=== PATIENT | male | born 1950 | race Caucasian/White ===

== ENCOUNTER → 2017-03-01 | Outpatient (CLI) | payer BC, MEDICARE ==
--- NOTE | 2017-03-01 08:56 | CT ---
EXAMINATION TYPE: CT chest wo con DATE OF EXAM: 03/01/2017 7:24 AM COMPARISON: Chest x-ray February 23, 2017 HISTORY: Asbestos exposure, abnormal recent x-ray CT DLP: 522.10 mGycm. Automated Exposure Control for Dose Reduction was Utilized. TECHNIQUE: CT scan of the thorax is performed without IV contrast. FINDINGS: LUNGS: Calcified pleural plaques bilaterally are confirmed. There is mild underlying emphysematous ch lindsay. There is some linear scarring in both lungs inferiorly involving the lingula, right middle lobe , and bilateral lower lobes. No pleural effusion or pneumothorax is present bilaterally. A few scatte red micronodules are present, for reference is 4 x 4 mm nodular opacity right middle lobe on axial im age 37. For reference is additional 4 x 4 mm nodular opacity inferiorly right middle lobe on axial im age 48. No concerning greater than 6 mm parenchymal nodule or mass is present bilaterally. Tracheobro nchial tree is patent. Slightly elevated left hemidiaphragm is seen. MEDIASTINUM: Lack of IV contrast is noted to limit evaluation for mediastinal and especially hilar ad enopathy. There are no definitive greater than 1 cm hilar or mediastinal lymph nodes. No cardiomega ly or pericardial effusion is seen. Calcifications at level of mitral valve are present. Coronary art elzbieta calcifications are seen which is noted marker for coronary artery disease. There is mild to moder ate atherosclerotic change of the visualized aorta. There is 1.3 cm hypodense nodule right thyroid lo be on axial image 1 mid pole level. OTHER: Fairly moderate to severe multilevel spurring in the mid to lower thoracic spine is present. M ild multilevel height loss or compression type deformities is seen. IMPRESSION: 1. Calcified pleural plaques consistent with history of prior asbestos exposure are noted. There is m ild underlying emphysematous change and scattered lower lung scarring. No concerning acute pulmonary process is seen. No suspicious mass or adenopathy is identified. 2. There is 1.3 cm right thyroid hypodense nodule, follow-up thyroid ultrasound advised to better shanna luate and characterize.
== END ==
LOC: RADCTMAIN 07:05
PROVIDERS: ATTEND Internal Medicine Critical Care Medicine
DX: Z09 Encounter for follow-up examination after completed treatment for conditions other than malignant neoplasm (principal); J92.9 Pleural plaque without asbestos; J43.9 Emphysema, unspecified
CPT/HCPCS: 71250

== ENCOUNTER 2017-04-04 14:53 | Emergency (ER) | payer BC, MEDICARE ==
[2017-04-04 15:12] VITALS: RESP 18
[2017-04-04] MEDS ORDERED: KETOROLAC 60 MG/2 ML VIAL IM STA (15:15)
--- NOTE | 2017-04-04 15:22 | ED ---
Back Pain HPI - General Chief Complaint: Back Pain/Injury Stated Complaint: Back Pain Time Seen by Provider: 04/04/17 15:13 Source: patient, RN notes reviewed Limitations: no limitations - History of Present Illness Initial Comments: 66 yo male presents to the Er with cc of right-sided back pain and right-sided rib pain. Patient states that he was lifting and moving a lot of things over the last week or so and he developed this pain to the right side as well is in the right upper back. Patient states that he try he tries to lift or move anything he has increased pain. Patient states that he is not having chest pain or shortness of breath with this. Patient denies any actual fall but just the act of lifting causes the pain to be increased. Patient states the pain is moderate. Patient states if he takes a big deep breath it feels as if he stretching and out which makes it worse. Patient denies any shortness of breath with this. Patient denies any radiation of the pain. Patient states she was concerned due to his symptoms without that he should be evaluated. Patient states the pain is been occurring for about 7 days. Patient denies any recent fever, chills, shortness of breath, chest pain, abdominal pain, nausea vomiting, numbness or tingling, dysuria or hematuria, constipation or diarrhea, headaches or visual changes, or any other current symptoms. - Related Data Home Medications Medication Instructions Recorded Confirmed Budesonide-Formot 160-4.5 Mcg 2 puff INHALATION BID 05/16/15 05/16/15 [Symbicort 160-4.5 Mcg Inhaler] Previous Rx's Medication Instructions Recorded HYDROcodone/APAP 5-325MG [[place] 5] 1 each PO Q4HR PRN #20 tab 05/16/15 methylPREDNISolone [Medrol] 4 mg PO DIRECTED #1 tab.ds.pk 05/16/15 Ibuprofen [Motrin] 600 mg PO Q6HR PRN #20 tab 04/04/17 traMADol HCl [Ultram] 50 mg PO Q4H PRN #20 tab 04/04/17 Allergies Allergy/AdvReac Type Severity Reaction Status Date / Time No Known Allergies Allergy Verified 05/16/15 15:43 Review of Systems ROS Statement: Those systems with pertinent positive or pertinent negative responses have been documented in the HPI. ROS Other: All systems not noted in ROS Statement are negative. Past Medical History Past Medical History: COPD History of Any Multi-Drug Resistant Organisms: None Reported Past Surgical History: Appendectomy, Back Surgery, Orthopedic Surgery Additional Past Surgical History / Comment(s): carpal tunel Past Psychological History: No Psychological Hx Reported Smoking Status: Current every day smoker Past Alcohol Use History: None Reported Past Drug Use History: None Reported General Exam Limitations: no limitations General appearance: alert, in no apparent distress Eye exam: Present: normal appearance, PERRL, EOMI. Absent: scleral icterus, conjunctival injection, periorbital swelling ENT exam: Present: normal exam, mucous membranes moist Neck exam: Present: normal inspection. Absent: tenderness, meningismus, lymphadenopathy Respiratory exam: Present: normal lung sounds bilaterally, chest wall tenderness (right lateral tenderness over lower ribs). Absent: respiratory distress, wheezes, rales, rhonchi, stridor Cardiovascular Exam: Present: regular rate, normal rhythm, normal heart sounds. Absent: systolic murmur, diastolic murmur, rubs, gallop, clicks GI/Abdominal exam: Present: soft, normal bowel sounds. Absent: distended, tenderness, guarding, rebound, rigid Back exam: Present: normal inspection, full ROM, tenderness (thoracic right sided paraspinal region). Absent: CVA tenderness (R), CVA tenderness (L) Neurological exam: Present: alert, oriented X3 Psychiatric exam: Present: normal affect, normal mood Skin exam: Present: warm, dry, intact, normal color. Absent: rash Course Vital Signs 04/04/17 04/04/17 04/04/17 15:08 16:27 17:21 Temperature 97.7 F 98.0 F 97.9 F Pulse Rate 101 H 78 53 L Respiratory 18 18 18 Rate Blood Pressure 151/91 166/106 155/86 O2 Sat by Pulse 98 97 97 Oximetry Medical Decision Making - Medical Decision Making 66-year-old male presents with what appears to be a thoracic strain chest and into the right-sided of the rib cage. Patient's pain is reproduced by lifting motion which he states that he believes injured it. At this time blood work was reviewed as well as platelets show any acute process. The patient pain. At this time the patient is feeling better. This discussed early shingles as well as the floor briefly muscle strain. We discussed return parameters and the plan. We will start him on Motrin for home as well as tramadol. We did discuss icing the area and rest. We discussed appropriate follow-up and return parameters. Patient stated that he understood and all his questions have been answered. This time the patient will be discharged home. - Lab Data Result diagrams: 04/04/17 16:12 04/04/17 16:12 Lab Results 04/04/17 04/04/17 04/04/17 Range/Units 16:12 16:12 16:12 WBC 5.1 (3.8-10.6) k/uL RBC 4.14 L (4.30-5.90) m/uL Hgb 14.2 (13.0-17.5) gm/dL Hct 39.4 (39.0-53.0) % MCV 95.1 (80.0-100.0) fL MCH 34.2 (25.0-35.0) pg MCHC 36.0 (31.0-37.0) g/dL RDW 12.8 (11.5-15.5) % Plt Count 423 (150-450) k/uL Neutrophils % 61 % Lymphocytes % 21 % Monocytes % 10 % Eosinophils % 4 % Basophils % 1 % Neutrophils # 3.1 (1.3-7.7) k/uL Lymphocytes # 1.1 (1.0-4.8) k/uL Monocytes # 0.5 (0-1.0) k/uL Eosinophils # 0.2 (0-0.7) k/uL Basophils # 0.0 (0-0.2) k/uL PT (9.0-12.0) sec INR (<1.1) APTT (22.0-30.0) sec D-Dimer (<0.60) mg/L FEU Sodium 138 (137-145) mmol/L Potassium 4.7 (3.5-5.1) mmol/L Chloride 105 (98-107) mmol/L Carbon Dioxide 23 (22-30) mmol/L Anion Gap 10 mmol/L BUN 17 (9-20) mg/dL Creatinine 1.01 (0.66-1.25) mg/dL Est GFR (MDRD) Af Amer >60 (>60 ml/min/1.73 sqM) Est GFR (MDRD) Non-Af >60 (>60 ml/min/1.73 sqM) Glucose 98 (74-99) mg/dL Calcium 9.4 (8.4-10.2) mg/dL Magnesium 2.2 (1.6-2.3) mg/dL Total Bilirubin 0.6 (0.2-1.3) mg/dL AST 20 (17-59) U/L ALT 26 (21-72) U/L Alkaline Phosphatase 62 (38-126) U/L Total Creatine Kinase 66 (55-170) U/L CK-MB (CK-2) 1.2 (0.0-2.4) ng/mL CK-MB (CK-2) Rel Index 1.8 Troponin I <0.012 (0.000-0.034) ng/mL Total Protein 6.8 (6.3-8.2) g/dL Albumin 3.9 (3.5-5.0) g/dL 04/04/17 Range/Units 16:12 WBC (3.8-10.6) k/uL RBC (4.30-5.90) m/uL Hgb (13.0-17.5) gm/dL Hct (39.0-53.0) % MCV (80.0-100.0) fL MCH (25.0-35.0) pg MCHC (31.0-37.0) g/dL RDW (11.5-15.5) % Plt Count (150-450) k/uL Neutrophils % % Lymphocytes % % Monocytes % % Eosinophils % % Basophils % % Neutrophils # (1.3-7.7) k/uL Lymphocytes # (1.0-4.8) k/uL Monocytes # (0-1.0) k/uL Eosinophils # (0-0.7) k/uL Basophils # (0-0.2) k/uL PT 9.8 (9.0-12.0) sec INR 1.0 (<1.1) APTT 24.8 (22.0-30.0) sec D-Dimer 1.00 H (<0.60) mg/L FEU Sodium (137-145) mmol/L Potassium (3.5-5.1) mmol/L Chloride (98-107) mmol/L Carbon Dioxide (22-30) mmol/L Anion Gap mmol/L BUN (9-20) mg/dL Creatinine (0.66-1.25) mg/dL Est GFR (MDRD) Af Amer (>60 ml/min/1.73 sqM) Est GFR (MDRD) Non-Af (>60 ml/min/1.73 sqM) Glucose (74-99) mg/dL Calcium (8.4-10.2) mg/dL Magnesium (1.6-2.3) mg/dL Total Bilirubin (0.2-1.3) mg/dL AST (17-59) U/L ALT (21-72) U/L Alkaline Phosphatase (38-126) U/L Total Creatine Kinase (55-170) U/L CK-MB (CK-2) (0.0-2.4) ng/mL CK-MB (CK-2) Rel Index Troponin I (0.000-0.034) ng/mL Total Protein (6.3-8.2) g/dL Albumin (3.5-5.0) g/dL - EKG Data -: EKG Interpreted by 04/04/17 17:25 Sinus bradycardia with sinus arrhythmia 59 bpm, normal axis, no atopy, no S-T depressions or elevations, - Radiology Data Radiology results: report reviewed, image reviewed Disposition Clinical Impression: Strain of thoracic region Disposition: HOME SELF-CARE Condition: Stable Instructions: Thoracic Back Strain (ED) Additional Instructions: Please use medication as discussed. Please follow up with family doctor if symptoms have not improved over the next two days. Please return to the emergency room if your symptoms increase or worsen or for any other concerns. Prescriptions: Ibuprofen [Motrin] 600 mg PO Q6HR PRN #20 tab PRN Reason: Pain traMADol HCl [Ultram] 50 mg PO Q4H PRN #20 tab PRN Reason: Pain Referrals: Michelle Hussein DO [Primary Care Provider] - 1-2 days Time of Disposition: 17:25
--- NOTE | 2017-04-04 15:58 | XR ---
EXAMINATION TYPE: XR thoracic spine 2V DATE OF EXAM: 04/04/2017 COMPARISON: NONE HISTORY: Pain TECHNIQUE: Three-view thoracic spine FINDINGS: There are 12 thoracic type vertebral bodies. Pedicles are intact. Diffuse narrowing of disc height is present. Subtle scoliosis is present. IMPRESSION: 1. Mild degenerative disc changes thoracic spine.
--- NOTE | 2017-04-04 15:58 | XR ---
EXAMINATION TYPE: PA chest with right rib series DATE OF EXAM: 04/04/2017 COMPARISON: 02/23/2017 HISTORY: 66 year-old male right lower posterior rib pain for 7 days FINDINGS: The heart is normal size. Aorta and pulmonary vasculature within normal limits. Bilateral calcified p leural plaques redemonstrated. No consolidation or pleural effusion allowing for the densities due to the pleural plaques. No displaced right rib fracture seen. IMPRESSION: 1. Asbestos related pleural disease. 2. No acute pulmonary process. 3. No displaced right rib fracture seen.
[2017-04-04] MEDS ORDERED: HYDROmorphone 1 MG/ML 1 ML SYRINGE IVP STA (16:07)
[2017-04-04 16:25] LABS: Basophils % (A) 1 %; CH 32.5; CHCM 34.3; Eosinophils # (A) 0.2 k/uL (0-0.7); Eosinophils % (A) 4 %; HCT 39.4 % (39.0-53.0); HDW 2.67; HGB 14.2 gm/dL (13.0-17.5); Luc # (Auto) 0.18; Luc % (Auto) 4; Lymphocytes # (A) 1.1 k/uL (1.0-4.8); Lymphocytes % (A) 21 %; MCH 34.2 pg (25.0-35.0); MCV 95.1 fL (80.0-100.0); Mean Platelet Volume 6.7; Monocytes # (A) 0.5 k/uL (0-1.0); Monocytes % (A) 10 %; Neutrophils # (A) 3.1 k/uL (1.3-7.7); Neutrophils % (A) 61 %; RBC 4.14 m/uL (4.30-5.90); RDW 12.8 % (11.5-15.5); WBC 5.1 k/uL (3.8-10.6); WBC (Perox) 5.13
[2017-04-04 16:34] LABS: ALT 26 U/L (21-72); AST 20 U/L (17-59); Alkaline Phosphatase 62 U/L (38-126); Anion Gap 10 mmol/L; Blood Urea Nitrogen 17 mg/dL (9-20); Calcium 9.4 mg/dL (8.4-10.2); Carbon Dioxide 23 mmol/L (22-30); Chloride 105 mmol/L (98-107); Glucose 98 mg/dL (74-99); Magnesium 2.2 mg/dL (1.6-2.3); Non-African American GFR(MDRD) >60 (>60 ml/min/1.73 sqM); Potassium 4.7 mmol/L (3.5-5.1); Sodium 138 mmol/L (137-145); Total Bilirubin 0.6 mg/dL (0.2-1.3); Total Protein 6.8 g/dL (6.3-8.2)
[2017-04-04 16:43] LABS: Partial Thromboplastin Time 24.8 sec (22.0-30.0); Prothrombin Time 9.8 sec (9.0-12.0)
[2017-04-04] MEDS ORDERED: RX INFO: IV CONTRAST WAS GIVEN 1 EACH MISC MISCELLANE PRN (16:46)
[2017-04-04 16:52] LABS: Creatine Kinase 66 U/L (55-170)
[2017-04-04 17:05] LABS: Creatine Kinase MB 1.2 ng/mL (0.0-2.4); Troponin I <0.012 ng/mL (0.000-0.034)
--- NOTE | 2017-04-04 17:14 | CT ---
EXAMINATION TYPE: CT angio chest DATE OF EXAM: 04/04/2017 5:11 PM COMPARISON: NONE HISTORY: Right side chest pain. CT DLP: 588 mGycm Automated exposure control for dose reduction was used. CONTRAST: CTA scan of the thorax is performed with IV Contrast, patient injected with 80 mL of Omnipaque 350, p ulmonary embolism protocol. There are 3-D post processed images.. FINDINGS: There is mild aneurysm of the ascending aorta that measures 4.3 cm. There is no evidence of dissectio n. There is normal contrast opacification of the pulmonary arteries. I see no filling defect. There i s dense bilateral pleural calcification at the lung bases. There is mild associated pleural thickenin g bilaterally. There is no pericardial effusion. There is atherosclerotic vascular calcification. The re is no evidence of a pulmonary mass. There are spondylotic changes in the thoracic spine. IMPRESSION: NO EVIDENCE OF PULMONARY EMBOLISM. MILD ANEURYSM OF ASCENDING AORTA. NO EVIDENCE OF DISSECTION. ATHER OSCLEROTIC VASCULAR DISEASE. MODERATE BILATERAL CALCIFIED PLEURAL PLAQUE. 1 CM CYST NOTED IN THE RIGHT THYROID LOBE. PLEURAL PLAQU E IS STABLE COMPARED TO CHEST CT SCAN OF 03/01/2017.
[2017-04-04 17:21] VITALS: BP 155/86; PULSE 53; TEMP 97.9
== END 2017-04-04 17:55 | disposition home or self-care (01) ==
LOC: EC 14:53
DX: S29.012A Strain of muscle and tendon of back wall of thorax, initial encounter (principal); I71.01 Dissection of thoracic aorta; M51.34 Other intervertebral disc degeneration, thoracic region; J44.9 Chronic obstructive pulmonary disease, unspecified; F17.200 Nicotine dependence, unspecified, uncomplicated; Z79.51 Long term (current) use of inhaled steroids; X50.0XXA Overexertion from strenuous movement or load, initial encounter
CPT/HCPCS: 99284; 96374; 96372; 36415; 93005; 85379; 80053; 82550; 82553; 83735; 84484; 85025; 85610; 85730; 71101; 72070; 71275; Q9967; J1885; J1170

== ENCOUNTER → 2017-04-21 | Outpatient (CLI) | payer BC, MEDICARE ==
--- NOTE | 2017-04-21 08:19 | US ---
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 GLAND SIZE: Right Lobe: 6.2 x2.2 x 2.3 cm Overall Parenchyma: homogenous Left Lobe: 5.4 x 1.8 x 1.8 cm Overall Parenchyma: homogeneous Isthmus Thickness: 0.5 cm NODULES RIGHT: # of nodules measured on right: 2 1. 1.6 X 1.1 x 1.6 cm isoechoic mixed nodule at the mid pole with well-defined margins; . This nod ule is wider than tall and shows intranodular vascularity. Prior size: no prior 2. 0.5 X 0.5 x 0.3 cm isoechoic solid nodule at the upper pole with well-defined margins; . This no dule is wider than tall and shows intranodular vascularity. Prior size: no prior LEFT: # of nodules measured on left: 1 1. 0.4 X 0.5 x 0.4 cm hypoechoic mixed nodule at the mid pole with well-defined margins; . This no dule is wider than tall and shows no intranodular vascularity. Prior size: no prior ISTHMUS: # of nodules measured in the isthmus: 0 1Bilateral neck scanned, no evidence of lymphadenopathy. IMPRESSION: Bilateral nonspecific thyroid nodularity.
== END | disposition home or self-care (01) ==
LOC: RADUSWWP 07:17
PROVIDERS: ATTEND Family Medicine
DX: E04.2 Nontoxic multinodular goiter (principal)
CPT/HCPCS: 76536

== ENCOUNTER 2018-03-22 13:44 | Inpatient (IN) | payer BC, MEDICARE ==
[2018-03-22] MEDS ORDERED: NITROGLYCERIN SL TABS 0.4 MG TAB SUBLINGUAL STA ×3 (14:06)
[2018-03-22] MEDS ORDERED: ASPIRIN 81 MG PO STA (14:06)
--- NOTE | 2018-03-22 14:09 | ED ---
General Adult HPI - General Chief complaint: Chest Pain Stated complaint: Chest Pain Time Seen by Provider: 03/22/18 14:01 Source: patient, RN notes reviewed Mode of arrival: wheelchair Limitations: no limitations - History of Present Illness Initial comments: Patient is a pleasant 67-year-old male presenting to the emergency Department with chest discomfort. Onset was 2 days ago after starting prednisone. At his own was prescribed for a rash. Symptoms are occurring several times per day and usually last a half an hour or more. Discomfort feels like burning without radiation. No associated dyspnea or nausea. Patient was sweaty yesterday. Discomfort was worse today prior to arrival and is now moderate. No history of similar symptoms previously. - Related Data Home Medications Medication Instructions Recorded Confirmed Budesonide-Formot 160-4.5 Mcg 2 puff INHALATION RT-BID 05/16/15 03/22/18 [Symbicort 160-4.5 Mcg Inhaler] Cetirizine HCl [Zyrtec] 10 mg PO DAILY 03/22/18 03/22/18 Halobetasol Propionate 1 applic TOPICAL BID 03/22/18 03/22/18 Tiotropium [place] [Spiriva] 1 cap INHALATION RT-DAILY 03/22/18 03/22/18 hydrOXYzine HCL [Atarax] 10 mg PO DAILY 03/22/18 03/22/18 predniSONE See Taper PO DAILY 03/22/18 03/22/18 Allergies Allergy/AdvReac Type Severity Reaction Status Date / Time No Known Allergies Allergy Verified 03/22/18 14:15 Review of Systems ROS Statement: Those systems with pertinent positive or pertinent negative responses have been documented in the HPI. ROS Other: All systems not noted in ROS Statement are negative. Constitutional: Denies: fever Eyes: Denies: eye pain ENT: Denies: ear pain Respiratory: Denies: cough, dyspnea Cardiovascular: Reports: chest pain Endocrine: Denies: heat or cold intolerance Gastrointestinal: Denies: nausea Genitourinary: Denies: dysuria Musculoskeletal: Denies: back pain Neurological: Denies: weakness Past Medical History Past Medical History: COPD, Hypertension History of Any Multi-Drug Resistant Organisms: None Reported Past Surgical History: Appendectomy, Back Surgery, Orthopedic Surgery Additional Past Surgical History / Comment(s): carpal tunel Past Psychological History: No Psychological Hx Reported Smoking Status: Current every day smoker Past Alcohol Use History: None Reported Past Drug Use History: None Reported General Exam Limitations: no limitations General appearance: alert, in no apparent distress Head exam: Present: atraumatic Eye exam: Present: normal appearance, PERRL ENT exam: Present: normal oropharynx Neck exam: Present: normal inspection Respiratory exam: Present: normal lung sounds bilaterally. Absent: chest wall tenderness Cardiovascular Exam: Present: regular rate, normal rhythm Expanded Peripheral pulses: 2+: Radial (R), Radial (L), Posterior Tibialis (R), Posterior Tibialis (L) GI/Abdominal exam: Present: soft. Absent: tenderness Extremities exam: Present: normal inspection. Absent: pedal edema, calf tenderness Neurological exam: Present: alert Psychiatric exam: Present: normal affect, normal mood Skin exam: Present: normal color Course Vital Signs 03/22/18 03/22/18 03/22/18 13:49 14:19 14:24 Temperature 98.5 F Pulse Rate 70 61 59 L Respiratory 16 20 18 Rate Blood Pressure 175/81 168/89 128/74 O2 Sat by Pulse 99 100 98 Oximetry 03/22/18 14:58 Temperature Pulse Rate 51 L Respiratory 20 Rate Blood Pressure 147/77 O2 Sat by Pulse 99 Oximetry EKG Findings - EKG Comments: EKG Findings:: Sinus rhythm at 61. QRS 96. QT 418. QTC 420. Normal axis. Normal QRS. No acute ST change. Medical Decision Making - Medical Decision Making Patient reevaluated and resting comfortably in bed. Patient near symptom-free following one nitroglycerin. Patient and family updated on results and plan. Case was discussed with Dr. Tse, who will admit for Dr. champagne, who admits for Dr. Hussein. - Lab Data Result diagrams: 03/22/18 14:15 03/22/18 14:15 Lab Results 03/22/18 03/22/18 03/22/18 Range/Units 14:15 14:15 14:15 WBC 10.1 (3.8-10.6) k/uL RBC 4.45 (4.30-5.90) m/uL Hgb 14.2 (13.0-17.5) gm/dL Hct 43.8 (39.0-53.0) % MCV 98.4 (80.0-100.0) fL MCH 32.0 (25.0-35.0) pg MCHC 32.5 (31.0-37.0) g/dL RDW 13.9 (11.5-15.5) % Plt Count 291 (150-450) k/uL Neutrophils % 90 % Lymphocytes % 3 % Monocytes % 6 % Eosinophils % 0 % Basophils % 0 % Neutrophils # 9.1 H (1.3-7.7) k/uL Lymphocytes # 0.3 L (1.0-4.8) k/uL Monocytes # 0.6 (0-1.0) k/uL Eosinophils # 0.0 (0-0.7) k/uL Basophils # 0.0 (0-0.2) k/uL PT (9.0-12.0) sec INR (<1.2) APTT (22.0-30.0) sec Sodium 140 (137-145) mmol/L Potassium 4.7 (3.5-5.1) mmol/L Chloride 107 (98-107) mmol/L Carbon Dioxide 22 (22-30) mmol/L Anion Gap 11 mmol/L BUN 23 H (9-20) mg/dL Creatinine 1.10 (0.66-1.25) mg/dL Est GFR (CKD-EPI)AfAm 81 (>60 ml/min/1.73 sqM) Est GFR (CKD-EPI)NonAf 70 (>60 ml/min/1.73 sqM) Glucose 130 H (74-99) mg/dL Calcium 8.9 (8.4-10.2) mg/dL Magnesium 2.3 (1.6-2.3) mg/dL Total Bilirubin 0.5 (0.2-1.3) mg/dL AST 40 (17-59) U/L ALT 50 (21-72) U/L Alkaline Phosphatase 60 (38-126) U/L Total Creatine Kinase 295 H (55-170) U/L CK-MB (CK-2) 7.3 H* (0.0-2.4) ng/mL CK-MB (CK-2) Rel Index 2.5 Troponin I 0.557 H* (0.000-0.034) ng/mL Total Protein 6.2 L (6.3-8.2) g/dL Albumin 3.8 (3.5-5.0) g/dL 03/22/18 Range/Units 14:15 WBC (3.8-10.6) k/uL RBC (4.30-5.90) m/uL Hgb (13.0-17.5) gm/dL Hct (39.0-53.0) % MCV (80.0-100.0) fL MCH (25.0-35.0) pg MCHC (31.0-37.0) g/dL RDW (11.5-15.5) % Plt Count (150-450) k/uL Neutrophils % % Lymphocytes % % Monocytes % % Eosinophils % % Basophils % % Neutrophils # (1.3-7.7) k/uL Lymphocytes # (1.0-4.8) k/uL Monocytes # (0-1.0) k/uL Eosinophils # (0-0.7) k/uL Basophils # (0-0.2) k/uL PT 9.5 (9.0-12.0) sec INR 1.0 (<1.2) APTT 21.6 L (22.0-30.0) sec Sodium (137-145) mmol/L Potassium (3.5-5.1) mmol/L Chloride (98-107) mmol/L Carbon Dioxide (22-30) mmol/L Anion Gap mmol/L BUN (9-20) mg/dL Creatinine (0.66-1.25) mg/dL Est GFR (CKD-EPI)AfAm (>60 ml/min/1.73 sqM) Est GFR (CKD-EPI)NonAf (>60 ml/min/1.73 sqM) Glucose (74-99) mg/dL Calcium (8.4-10.2) mg/dL Magnesium (1.6-2.3) mg/dL Total Bilirubin (0.2-1.3) mg/dL AST (17-59) U/L ALT (21-72) U/L Alkaline Phosphatase (38-126) U/L Total Creatine Kinase (55-170) U/L CK-MB (CK-2) (0.0-2.4) ng/mL CK-MB (CK-2) Rel Index Troponin I (0.000-0.034) ng/mL Total Protein (6.3-8.2) g/dL Albumin (3.5-5.0) g/dL - Radiology Data Radiology results: image reviewed (Chest x-ray shows some calcified pleural plaque suggesting prior asbestos exposure. Hyperinflation. No acute process.) Critical Care Time Critical Care Time: Yes Total Critical Care Time: 32 Disposition Clinical Impression: NSTEMI (non-ST elevated myocardial infarction) Disposition: ADMITTED IP TO THIS HOSP Is patient prescribed a controlled substance at d/c from ED?: No Referrals: Michelle Hussein DO [Primary Care Provider] - 1-2 days Decision Time: 15:22
[2018-03-22 14:39] LABS: Prothrombin Time 9.5 sec (9.0-12.0)
[2018-03-22 14:48] LABS: Basophils % (A) 0 %; Eosinophils % (A) 0 %; HCT 43.8 % (39.0-53.0); HGB 14.2 gm/dL (13.0-17.5); Lymphocytes # (A) 0.3 k/uL (1.0-4.8); Lymphocytes % (A) 3 %; MCHC 32.5 g/dL (31.0-37.0); MCV 98.4 fL (80.0-100.0); Mean Platelet Volume 6.4; Monocytes # (A) 0.6 k/uL (0-1.0); Monocytes % (A) 6 %; Neutrophils # (A) 9.1 k/uL (1.3-7.7); Neutrophils % (A) 90 %; Platelet Count 291 k/uL (150-450); RBC 4.45 m/uL (4.30-5.90); RDW 13.9 % (11.5-15.5); WBC 10.1 k/uL (3.8-10.6)
[2018-03-22 14:51] LABS: Partial Thromboplastin Time 21.6 sec (22.0-30.0)
[2018-03-22 14:54] LABS: Albumin 3.8 g/dL (3.5-5.0); Calcium 8.9 mg/dL (8.4-10.2); Magnesium 2.3 mg/dL (1.6-2.3); Potassium 4.7 mmol/L (3.5-5.1); Total Bilirubin 0.5 mg/dL (0.2-1.3); Total Protein 6.2 g/dL (6.3-8.2)
[2018-03-22] MEDS ORDERED: NITROGLYCERIN OINT 1 INCH/GM PACKET TOPICAL STA (14:55)
--- NOTE | 2018-03-22 14:59 | XR ---
EXAMINATION TYPE: XR chest 2V DATE OF EXAM: 03/22/2018 COMPARISON: 04/04/2017 HISTORY: 67-year-old male with chest pain TECHNIQUE: Frontal and lateral views FINDINGS: Heart normal size. Aorta and pulmonary vasculature within normal limits. Diffuse interstitial promine nce. Stable blunting of the right costophrenic angle likely secondary to pleural parenchymal scarring . Hyperinflation with flattening of the hemidiaphragms. Focal plaque-like density projecting at the r ight upper lobe is unchanged IMPRESSION: Calcified pleural plaques suggesting prior asbestos exposure. There is COPD without acute process see n.
[2018-03-22 15:16] LABS: Creatine Kinase MB 7.3 ng/mL (0.0-2.4); Troponin I 0.557 ng/mL (0.000-0.034)
[2018-03-22] MEDS ORDERED: HEPARIN SODIUM,PORCINE 5,000 UNIT/ML 1 ML VIAL IV ONE (15:22)
[2018-03-22] MEDS ORDERED: HEPARIN SODIUM,PORCINE 5,000 UNIT/ML 1 ML VIAL IV PRN (15:22)
[2018-03-22] MEDS ORDERED: NITROGLYCERIN SL TABS 0.4 MG TAB SUBLINGUAL PRN (15:22)
[2018-03-22] MEDS ORDERED: HEPARIN SOD,PORK IN 0.45% NACL 25,000 UNIT in 0.45% NACL 1 500ML.BAG IV SCH (15:30)
[2018-03-22] MEDS: ATORVASTATIN 80 MG TAB PO SCH (16:19)
[2018-03-22] MEDS ORDERED: MAG HYDROX/AL HYDROX/SIMETH 30 ML CUP PO PRN (16:56)
[2018-03-22] MEDS: METOPROLOL TARTRATE 25 MG TAB PO SCH (21:08)
[2018-03-22] MEDS: NITROGLYCERIN OINT 1 INCH/GM PACKET TOPICAL SCH ×2 (21:09→23:05)
[2018-03-22 21:13] LABS: Creatine Kinase MB 7.8 ng/mL (0.0-2.4); Troponin I 1.45 ng/mL (0.000-0.034)
[2018-03-22] MEDS ORDERED: diphenhydrAMINE 50 MG CAP PO PRN (21:14)
[2018-03-22] MEDS ORDERED: IPRATROPIUM-ALBUTEROL 3 ML NEB INHALATION PRN (21:15)
--- NOTE | 2018-03-22 22:29 | P.HPIM ---
History of Present Illness H&P Date: 03/22/18 Chief Complaint: Chest pain Patient is a 67 old male with a known history of COPD and hypertension came to ER with complaints of chest pain. Patient says that he has been having chest pain for the past 2 days mainly retrosternal pressure-like severe burning sensation lasting about 2 hours on and off. No radiation. Patient says that pain is 10 times worse than his GERD symptoms. Pain is associated with sweating which he had last night. Patient was given nitroglycerin when he came to the hospital which did help him symptomatically. Patient says that all his symptoms started 2 days ago when he was started on prednisone for skin rash which developed RT was exposed to coolent Solution. Discomfort was worse today prior to arrival and is now moderate. No history of similar symptoms previously. Chest x-ray showed calcified pleural plaques suggestive of prior asbestos exposure. There is COPD without acute processes seen. EKG showed no ST-T elevation. Troponin is 0.055 Review of Systems Constitutional: Patient denies any fever or chills . No generalized weakness or weight loss. Abdomen: Patient denied nausea vomiting and diarrhea and abdominal pain. Cardiovascular: Patient does have chest pain on and off shortness of breath and sweating. Burning sensation. Respiratory: patient denied any cough is from production. No shortness of breath Neurologic: Patient denied any numbness or tingling headache. Musculoskeletal: Patient denies any complaints of joint swelling or deformity. Skin: Negative Psychiatric: Negative Endocrine: No heat or cold intolerance. No recent weight gain. Genitourinary: No dysuria or hematuria. All other 14 point ROS negative except the above Past Medical History Past Medical History: COPD, Hypertension History of Any Multi-Drug Resistant Organisms: None Reported Past Surgical History: Appendectomy, Back Surgery, Orthopedic Surgery Additional Past Surgical History / Comment(s): carpal tunel Past Psychological History: No Psychological Hx Reported Smoking Status: Current every day smoker Past Alcohol Use History: None Reported Past Drug Use History: None Reported - Past Family History Father Family Medical History: Myocardial Infarction ([place]) Mother Family Medical History: CVA/TIA, Myocardial Infarction ([place]), Pneumonia Medications and Allergies Home Medications Medication Instructions Recorded Confirmed Type Budesonide-Formot 160-4.5 Mcg 2 puff INHALATION RT-BID 05/16/15 03/22/18 History [Symbicort 160-4.5 Mcg Inhaler] Cetirizine HCl [Zyrtec] 10 mg PO DAILY 03/22/18 03/22/18 History Halobetasol Propionate 1 applic TOPICAL BID 03/22/18 03/22/18 History Tiotropium [place] [Spiriva] 1 cap INHALATION RT-DAILY 03/22/18 03/22/18 History hydrOXYzine HCL [Atarax] 10 mg PO DAILY 03/22/18 03/22/18 History predniSONE See Taper PO DAILY 03/22/18 03/22/18 History Allergies Allergy/AdvReac Type Severity Reaction Status Date / Time No Known Allergies Allergy Verified 03/22/18 14:15 Physical Exam Vitals: Vital Signs Temp Pulse Resp BP Pulse Ox 03/22/18 16:19 97.3 F L 53 L 18 123/67 98 03/22/18 14:58 51 L 20 147/77 99 03/22/18 14:24 59 L 18 128/74 98 03/22/18 14:19 61 20 168/89 100 03/22/18 13:49 98.5 F 70 16 175/81 99 Intake and Output 03/22/18 03/22/18 03/22/18 06:59 14:59 22:59 Other: Weight 81.647 kg PHYSICAL EXAMINATION: Patient is lying in the bed comfortably, no acute distress, awake alert and oriented.. HEENT: Normocephalic. Neck is supple. Pupils reactive. Nostrils clear. Oral cavity is moist. Ears reveal no drainage. Neck reveals no JVD, carotid bruits, or thyromegaly. CHEST EXAMINATION: Trachea is central. Symmetrical expansion. Lung blood clear to auscultation and percussion. CARDIAC: Normal S1, S2 with no gallops. No murmurs ABDOMEN: Soft. Bowel sounds normal. No organomegaly. No abdominal bruits. Extremities: reveal no edema. No clubbing or cyanosis Neurologically awake, alert, oriented x3 with well-coordinated movements. No focal deficits noted Skin: No rash or skin lesions. Psychiatric: Coperative. Nonsuicidal Musculoskeletal: No joint swelling or deformity. Normal range of motion. Results CBC & Chem 7: 03/22/18 14:15 03/22/18 14:15 Labs: Abnormal Lab Results - Last 24 Hours (Table) 03/22/18 03/22/1803/22/18 Range/Units 14:15 14:15 14:15 Neutrophils # 9.1 H (1.3-7.7) k/uL Lymphocytes # 0.3 L (1.0-4.8) k/uL APTT (22.0-30.0) sec BUN 23 H (9-20) mg/dL Glucose 130 H (74-99) mg/dL Total Creatine Kinase 295 H (55-170) U/L CK-MB (CK-2) 7.3 H* (0.0-2.4) ng/mL Troponin I 0.557 H* (0.000-0.034) ng/mL Total Protein 6.2 L (6.3-8.2) g/dL 03/22/18 Range/Units 14:15 Neutrophils # (1.3-7.7) k/uL Lymphocytes # (1.0-4.8) k/uL APTT 21.6 L (22.0-30.0) sec BUN (9-20) mg/dL Glucose (74-99) mg/dL Total Creatine Kinase (55-170) U/L CK-MB (CK-2) (0.0-2.4) ng/mL Troponin I (0.000-0.034) ng/mL Total Protein (6.3-8.2) g/dL Thrombosis Risk Factor Assmnt - DVT/VTE Prophylaxis DVT/VTE Prophylaxis: Pharmacologic Prophylaxis ordered Assessment and Plan Assessment: Chest pain with Acute non-ST elevated [place] Hypertension COPD Nicotine addiction ALLERGIC skin reaction currently on prednisone. Plan: Patient will be continued on heparin drip. Follow-up serial troponins and pain management. Continue with telemetry monitoring and cardiology was consulted. Patient is getting 2-D echo now. Counseled for smoking cessation. Will follow closely and further recommendations based on the clinical course. Time with Patient: Greater than 30
[2018-03-22] MEDS: methylPREDNISolone SOD SUCCI 40 MG/ML 1 ML VIAL IV SCH (23:04)
[2018-03-22] MEDS: CLOBETASOL PROP 0.05% CR 15GM TOPICAL SCH (23:04)
[2018-03-23 03:29] LABS: Basophils % (A) 0 %; Eosinophils # (A) 0.1 k/uL (0-0.7); Eosinophils % (A) 1 %; HCT 37.2 % (39.0-53.0); HGB 12.2 gm/dL (13.0-17.5); Lymphocytes # (A) 0.5 k/uL (1.0-4.8); Lymphocytes % (A) 5 %; MCH 31.9 pg (25.0-35.0); MCHC 32.8 g/dL (31.0-37.0); MCV 97.5 fL (80.0-100.0); Mean Platelet Volume 6.4; Monocytes # (A) 0.4 k/uL (0-1.0); Monocytes % (A) 5 %; Neutrophils # (A) 7.7 k/uL (1.3-7.7); Neutrophils % (A) 88 %; Platelet Count 260 k/uL (150-450); RBC 3.81 m/uL (4.30-5.90); RDW 13.5 % (11.5-15.5); WBC 8.7 k/uL (3.8-10.6)
[2018-03-23 03:41] LABS: Creatine Kinase MB 8.4 ng/mL (0.0-2.4)
[2018-03-23 03:42] LABS: Troponin I 1.82 ng/mL (0.000-0.034)
[2018-03-23 03:48] LABS: Calcium 8.6 mg/dL (8.4-10.2); Potassium 4.7 mmol/L (3.5-5.1)
[2018-03-23] MEDS: NITROGLYCERIN OINT 1 INCH/GM PACKET TOPICAL SCH (06:13)
[2018-03-23] MEDS: INSULIN ASPART 100 UNIT/ML 1 ML 10 ML VIAL SQ SCH ×4 (06:14→21:09)
[2018-03-23 06:15] LABS: Glucose,Whole Blood 118 mg/dL (75-99)
[2018-03-23] MEDS ORDERED: IPRATROPIUM 0.5 MG/2.5 ML NEBU INHALATION SCH (08:00)
[2018-03-23] MEDS: methylPREDNISolone SOD SUCCI 40 MG/ML 1 ML VIAL IV SCH ×2 (08:24→16:02)
[2018-03-23] MEDS: ATORVASTATIN 80 MG TAB PO SCH ×2 (08:24→12:22)
[2018-03-23] MEDS: hydrOXYzine HCL 10 MG TAB PO SCH (08:26)
[2018-03-23] MEDS: METOPROLOL TARTRATE 25 MG TAB PO SCH (08:26)
--- NOTE | 2018-03-23 08:26 | P.PCN ---
Preoperative Diagnosis: Chest discomfort midsternal that felt like heartburn, 6 episodes since Tuesday mostly with exertion but sometimes with rest. Abnormal cardiac enzymes. Current smoker no diabetes denies hypertension CPKs to 95, 237 and 213. Troponin 0.55, 1.45, 1.8 LDL in the acute phase 67 Twelve-lead ECG shows sinus rhythm with subtle ST T changes in the inferior leads and the T waves in the lateral precordial and high lateral leads Impression Non-Q wave myocardial infarction Current smoker Plan Continue IV heparin, continue Nitropaste, beta blockers, statins, aspirin and proceed with coronary angiography Discussed with patient Nothing by mouth except medications
[2018-03-23] MEDS: LORATADINE 10 MG TAB PO SCH (08:28)
--- NOTE | 2018-03-23 08:31 | P.CRDCN ---
History of Present Illness Consult date: 03/23/18 Consult reason: non-Q-wave [place] Chief complaint: Chest pain History of present illness: This pleasant 67-year-old gentleman with known history of hypertension , nicotine dependence, COPD, who presents to the hospital with symptoms of chest discomfort. According to the patient, he was started on prednisone on Tuesday for her rash, subsequent to that he developed a midsternal chest pain which she describes as a burning sensation. Patient has had several recurrent episodes since then, because of this he came to the hospital for further evaluation. EKG on admission here shows a normal sinus rhythm with nonspecific ST-T wave changes in the inferior leads. White blood cell count 8.7, hemoglobin 12.2, platelet count 260. Sodium 139, potassium 4.7, BUN 22, creatinine 1.1. Troponins 0.55, 1.4, 1.8. Cholesterol 118, LDL, 67, triglycerides 40, HDL 43. Chest x-ray reveals calcified pleural plaques suggesting asbestos exposure. COPD without acute process. At the time of my examination this morning and is currently chest pain-free. Past Medical History Past Medical History: COPD, Hypertension Additional Past Medical History / Comment(s): chemical burn to arms d/t work related injury, asbestos exposure History of Any Multi-Drug Resistant Organisms: None Reported Past Surgical History: Appendectomy, Back Surgery, Orthopedic Surgery Additional Past Surgical History / Comment(s): carpal tunel Past Anesthesia/Blood Transfusion Reactions: No Reported Reaction Past Psychological History: No Psychological Hx Reported Smoking Status: Current every day smoker Past Alcohol Use History: None Reported Past Drug Use History: None Reported - Past Family History Father Family Medical History: Myocardial Infarction ([place]) Mother Family Medical History: CVA/TIA, Myocardial Infarction ([place]), Pneumonia Medications and Allergies Home Medications Medication Instructions Recorded Confirmed Type Budesonide-Formot 160-4.5 Mcg 2 puff INHALATION RT-BID 05/16/15 03/22/18 History [Symbicort 160-4.5 Mcg Inhaler] Cetirizine HCl [Zyrtec] 10 mg PO DAILY 03/22/18 03/22/18 History Halobetasol Propionate 1 applic TOPICAL BID 03/22/18 03/22/18 History Tiotropium [place] [Spiriva] 1 cap INHALATION RT-DAILY 03/22/18 03/22/18 History hydrOXYzine HCL [Atarax] 10 mg PO DAILY 03/22/18 03/22/18 History predniSONE See Taper PO DAILY 03/22/18 03/22/18 History Allergies Allergy/AdvReac Type Severity Reaction Status Date / Time No Known Allergies Allergy Verified 03/22/18 14:15 Physical Exam Vitals: Vital Signs Temp Pulse Pulse Resp BP BP Pulse Ox 03/23/18 04:00 97 F L 64 18 135/73 96 03/23/18 00:00 60 18 123/80 93 L 03/22/18 20:00 97 F L 64 18 144/74 97 03/22/18 19:00 97.1 F L 66 18 142/79 97 03/22/18 18:26 60 18 126/69 100 03/22/18 17:24 69 18 158/78 97 03/22/18 16:19 97.3 F L 53 L 18 123/67 98 03/22/18 14:58 51 L 20 147/77 99 03/22/18 14:24 59 L 18 128/74 98 03/22/18 14:19 61 20 168/89 100 03/22/18 13:49 98.5 F 70 16 175/81 99 Intake and Output 03/22/18 03/23/18 03/23/18 22:59 06:59 14:59 Intake Total 135.171 Balance 135.171 Intake: Intake, IV Titration 135.171 Amount Heparin Sod,Pork in 0.45% 135.171 NaCl 25,000 unit In 0.45 % NaCl 1 500ml.bag @ 12 UNITS/KG/HR 19.59 mls/hr IV .Q24H [facility] Rx#: [id number] Other: Voiding Method Toilet Toilet # Voids 1 1 Weight 81.9 kg PHYSICAL EXAMINATION: GENERAL: 67-year-old gentleman in no apparent distress at time of my examination HEENT: Head is atraumatic, normocephalic. Pupils equal, round. Sclera anicteric. Conjunctiva are clear. Mucous membranes of the mouth are moist. Neck is supple. There is no elevated jugular venous pressure.] bruit is heard. HEART EXAMINATION: Heart S1, S2 normal. No murmur or gallop heard. CHEST EXAMINATION: Lungs reveal scattered coarse wheezing throughout. ABDOMEN: Soft, nontender. Bowel sounds are heard. No organomegaly noted. EXTREMITIES: 2+ peripheral pulses with no evidence of peripheral edema and no calf tenderness noted. Patient does have a generalized rash noted on his bilateral extremities and chest area. NEUROLOGIC patient is awake, alert and oriented -3. . Results 03/23/18 02:50 03/23/18 02:50 Cardiac Enzymes 03/22/18 03/22/18 03/22/18 Range/Units 14:15 14:15 20:12 AST 40 (17-59) U/L CK-MB (CK-2) 7.3 H* 7.8 H* (0.0-2.4) ng/mL Troponin I 0.557 H* 1.450 H* (0.000-0.034) ng/mL 03/23/18 Range/Units 02:50 AST (17-59) U/L CK-MB (CK-2) 8.4 H* (0.0-2.4) ng/mL Troponin I 1.820 H* (0.000-0.034) ng/mL Coagulation 03/22/18 03/22/18 03/23/18 Range/Units 14:15 20:12 02:50 PT 9.5 (9.0-12.0) sec APTT 21.6 L 36.7 H 65.7 H (22.0-30.0) sec Lipids 03/23/18 Range/Units 02:50 Triglycerides 40 (<150) mg/dL Cholesterol 118 (<200) mg/dL HDL Cholesterol 43 (40-60) mg/dL CBC 03/22/18 03/23/18 Range/Units 14:15 02:50 WBC 10.1 8.7 (3.8-10.6) k/uL RBC 4.45 3.81 L (4.30-5.90) m/uL Hgb 14.2 12.2 L (13.0-17.5) gm/dL Hct 43.8 37.2 L (39.0-53.0) % Plt Count 291 260 (150-450) k/uL Comprehensive Metabolic Panel 03/22/18 03/23/18 Range/Units 14:15 02:50 Sodium 140 139 (137-145) mmol/L Potassium 4.7 4.7 (3.5-5.1) mmol/L Chloride 107 108 H (98-107) mmol/L Carbon Dioxide 22 26 (22-30) mmol/L BUN 23 H 22 H (9-20) mg/dL Creatinine 1.10 1.10 (0.66-1.25) mg/dL Glucose 130 H 121 H (74-99) mg/dL Calcium 8.9 8.6 (8.4-10.2) mg/dL AST 40 (17-59) U/L ALT 50 (21-72) U/L Alkaline Phosphatase 60 (38-126) U/L Total Protein 6.2 L (6.3-8.2) g/dL Albumin 3.8 (3.5-5.0) g/dL Current Medications Generic Name Dose Route Start Last Admin Trade Name Freq PRN Reason Stop Dose Admin Al Hydroxide/Mg Hydroxide 30 ml 03/22/18 16:56 Maalox PO Q4HR PRN GI Upset Albuterol/Ipratropium 3 ml 03/22/18 21:15 Duoneb 0.5 Mg-3 Mg/3 Ml Soln INHALATION RT-Q2H PRN Shortness Of Breath Or Wheezing Albuterol/Ipratropium 3 ml 03/23/18 08:00 Duoneb 0.5 Mg-3 Mg/3 Ml Soln INHALATION RT-QID [facility] Aspirin 325 mg 03/23/18 09:00 Aspirin PO DAILY [facility] Atorvastatin Calcium 80 mg 03/22/18 16:00 03/22/18 16:19 Lipitor PO 80 mg DAILY [facility] Administration Budesonide/Formoterol Fumarate 2 puff 03/22/18 21:12 Symbicort 160-4.5 Mcg Inhaler INHALATION RT-BID [facility] Clobetasol Propionate 1 applic 03/22/18 21:12 03/22/18 23:04 Temovate TOPICAL 1 applic BID [facility] Administration Diphenhydramine HCl 50 mg 03/22/18 21:14 03/22/18 23:04 Benadryl PO 50 mg Q6H PRN Administration Itching Heparin Sodium (Porcine) 0 unit 03/22/18 15:22 03/22/18 23:15 Heparin IV 4,000 unit Q6HR PRN Administration Low PTT Protocol Hydroxyzine HCl 10 mg 03/23/18 09:00 Atarax PO DAILY [facility] Heparin Sodium/Sodium Chloride 500 mls @ 19.59 mls/hr 03/22/18 15:30 23:10 25,000 unit/ Sodium Chloride IV 15 units/kg/hr .Q24H [facility] 24.49 mls/hr Protocol Titration 12 UNITS/KG/HR Insulin Aspart 0 unit 03/23/18 07:30 03/23/18 06:14 Novolog SQ Not Given ACHS [facility] Protocol Ipratropium [place] 0.5 mg 03/23/18 08:00 Atrovent Nebulized INHALATION RT-QID [facility] Loratadine 10 mg 03/23/18 09:00 Claritin PO DAILY [facility] Methylprednisolone Sodium Succinate 40 mg 03/23/18 00:00 03/22/18 23:04 Solu-Medrol IV 40 mg Q8HR [facility] Administration Metoprolol Tartrate 25 mg 03/22/18 21:00 03/22/18 21:08 Lopressor PO 25 mg BID [facility] Administration Nitroglycerin 1 inch 03/22/18 19:00 03/23/18 06:13 Nitro-Bid Oint TOPICAL 1 inch Q6HR [facility] Administration Nitroglycerin 0.4 mg 03/22/18 15:22 Nitrostat SUBLINGUAL Q5M PRN Chest Pain Pantoprazole Sodium 40 mg 03/23/18 09:00 Protonix IVP DAILY [facility] Sodium Chloride 10 ml 03/22/18 21:00 03/22/18 20:53 Saline Flush IV Not Given BID [facility] Intake and Output 03/22/18 03/23/18 03/23/18 22:59 06:59 14:59 Intake Total 135.171 Balance 135.171 Intake: Intake, IV Titration 135.171 Amount Heparin Sod,Pork in 0.45% 135.171 NaCl 25,000 unit In 0.45 % NaCl 1 500ml.bag @ 12 UNITS/KG/HR 19.59 mls/hr IV .Q24H [facility] Rx#: [id number] Other: Voiding Method Toilet Toilet # Voids 1 1 Weight 81.9 kg 03/23/18 02:50 03/23/18 02:50 EKG Interpretations (text) EKG shows normal sinus rhythm with nonspecific ST-T wave changes in the inferior leads. Assessment and Plan Plan: Assessment and plan #1 symptoms of midsternal chest discomfort described as burning, suggestive of acute coronary syndrome. Troponins 0.55, 1.4, 1.8. EKG shows normal sinus rhythm with inferior ST-T wave changes. T waves in the anterior lateral leads. #2 hypertension #3 nicotine dependence #4 COPD Plan We will obtain an echocardiogram with Doppler study. Patient has also been advised to undergo cardiac catheterization, the risks and the benefits were explained to the patient in detail and he is willing to proceed. Further recommendations be based on these findings and the patient's clinical course. DNP note has been reviewed, I agree with a documented findings and plan of care. Patient was seen and examined.
[2018-03-23] MEDS ORDERED: SODIUM CHLORIDE 0.9% 1,000 ML in EMPTY BAG 1 BAG IV ONE (08:32)
[2018-03-23] MEDS ORDERED: ALPRAZolam 0.5 MG TAB PO PRN (08:32)
[2018-03-23] MEDS ORDERED: ATORVASTATIN 80 MG TAB PO STA (08:32)
[2018-03-23] MEDS ORDERED: ASPIRIN 325 MG TAB PO STA (08:32)
[2018-03-23] MEDS: SYMBICORT 160-4.5 MCG INHALER INHALATION SCH ×4 (08:32→19:04)
[2018-03-23] MEDS ORDERED: ALPRAZolam 0.25 MG TAB PO PRN (08:32)
[2018-03-23] MEDS: IPRATROPIUM-ALBUTEROL 3 ML NEB INHALATION SCH ×4 (08:32→19:03)
[2018-03-23] MEDS ORDERED: NITROGLYCERIN SL TABS 0.4 MG TAB SUBLINGUAL PRN (08:32)
[2018-03-23] MEDS ORDERED: PANTOPRAZOLE 40 MG/10 ML VIAL IVP SCH (09:00)
[2018-03-23] MEDS ORDERED: ASPIRIN 325 MG TAB PO SCH (09:00)
[2018-03-23] MEDS ORDERED: fentaNYL (PF) 50 MCG/ML 2 ML AMP IV ONE (09:07)
[2018-03-23] MEDS ORDERED: LIDOCAINE 2% INJ 20 MG/ML SQ ONE (09:09)
[2018-03-23] MEDS ORDERED: VERAPAMIL SYRINGE (5 MG/10 ML) INTRAARTER ONE (09:11)
[2018-03-23] MEDS ORDERED: IV FLUID CONTINUATION 1,000 ML IV ONE (09:11)
[2018-03-23] MEDS ORDERED: HEPARIN SODIUM 1,000 UN/ML (10ML VL) IV ONE (09:25)
[2018-03-23] MEDS ORDERED: IOPAMIDOL-370 125ML BTL INJ ONE (09:27)
[2018-03-23] MEDS ORDERED: IOPAMIDOL-370 50ML BTL INJ ONE (09:28)
[2018-03-23] MEDS ORDERED: RX INFO: IV CONTRAST WAS GIVEN 1 EACH MISC MISCELLANE PRN (09:37)
[2018-03-23] MEDS ORDERED: CLOPIDOGREL 75 MG TAB PO ONE (09:44)
[2018-03-23] MEDS ORDERED: SODIUM CHLORIDE 0.9% 1,000 ML IV SCH (09:45)
--- NOTE | 2018-03-23 10:19 | CC ---
CARDIAC CATHETERIZATION REPORT Mr. Melendez is a 67-year-old male with a known history of chronic tobacco use and no prior documented history of coronary artery disease who has been complaining of chest discomfort on and off since Tuesday. He came into the emergency room because of his symptoms and he was found to have mild elevation of the troponin with no significant EKG changes. In view of that, recommendation was made regarding cardiac catheterization. The procedure as well as the risks and the complications were discussed with the patient who is in full understanding and agreement. PROCEDURE: Patient was brought to slab polisher in a fasting semi-sedated state after receiving fentanyl and Benadryl and achieving moderate conscious sedated state. Using Xylocaine anesthesia in the Seldinger technique, a 6-Yi sheath was introduced in the right radial artery. Selective right and left coronary angiography was performed using 5- Yi 3.5 bend right and left Melody catheter. Multiple views of the coronary artery including hemiaxial views were obtained. Following that, a 5-Yi tight pigtail catheter was introduced in the left ventricle and a 30-degree KASPER view of the left ventricle was obtained. Following that, catheter and sheaths were removed. Hemostasis was obtained with deployment of a TR band. There was no immediate complication. Patient was returned to his room in stable condition. Of note, the patient received 4000 units of intravenous heparin as well as intra-arterial verapamil. FINDINGS: FLUOROSCOPY: There was severe calcification involving the left main, the LAD and left circumflex. LEFT MAIN: This is a large-sized vessel bifurcating in left circumflex and left anterior descending artery. The left main coronary artery has a mild plaque distally of 20% to 30% without any evidence of high-grade stenosis. LEFT ANTERIOR DESCENDING ARTERY: This is a large-sized vessel reaching toward the apex with a wrap around apex segment giving rise to 2 diagonal branches. The first one is large in caliber. The left anterior descending artery is diffusely calcified, has a plaque of 20% to 30% in the mid segment. The rest of the vessel has no high-grade stenosis. The first diagonal branch has a branching point that has an 80% to 90% stenosis. Beyond that, the vessel is small in caliber. The second diagonal branch has a 60% plaque in the mid segment. LEFT CIRCUMFLEX: This is a nondominant vessel, calcified, tortuous in the proximal segment, bifurcating distally in PDA and posterolateral segment and branches giving rise to a small obtuse marginal branch. The left circumflex in the mid segment has a he has a 30% plaque. The PDA and PLV has diffuse intimal disease without any evidence of high-grade stenosis. RIGHT CORONARY ARTERY: This is a nondominant vessel, small in caliber, diffusely diseased throughout its course with area stenosis up to 80%. LEFT VENTRICULOGRAM: Left ventriculogram was performed in 30-degree KASPER view and revealed normal left ventricular size and systolic function, ejection fraction is 60%. There was no significant mitral regurgitation. HEMODYNAMICS: There was no gradient across the aortic valve. The left ventricular end- diastolic pressure was 14 mmHg. CONCLUSION: 1. Calcified coronary arteries. 2. Significant disease in a small nondominant right coronary artery. 3. Calcified left anterior descending artery and left circumflex with mild to moderate disease. 4. Preserved left ventricular size and systolic function. RECOMMENDATION: In view of finding anatomy, recommend continue medical therapy with aggressive coronary risk modification that has been initiated. Those findings and recommendations were discussed with the patient his family who are in full understanding and agreement. DURATION OF PROCEDURE: 26 minutes. MMODL / IJN: [id number] /
--- NOTE | 2018-03-23 10:25 | LTR ---
March 23, 2018 Re: AlJeremy Dear Dr. Hussein: I had the opportunity to perform cardiac catheterization on Mr. Melendez at [facility] on the 23 of March and a full copy of the procedure note will be forwarded to you. In brief, he was found to have significant disease in a small nondominant right coronary artery with mild to moderate disease in the left circumflex and to the LAD. In view of that, I have recommended to continue medical therapy with aggressive coronary risk modification and smoking cessation. Thank you again for allowing me the opportunity to participate in his care. Please feel free to call for any questions. Sincerely yours, MD KHUSHBOO ChaviraL / MARYN: [id number] /
[2018-03-23] MEDS: CLOBETASOL PROP 0.05% CR 15GM TOPICAL SCH ×2 (11:14→19:59)
[2018-03-23 12:07] LABS: Glucose,Whole Blood 113 mg/dL (75-99)
[2018-03-23] MEDS: ISOSORBIDE MONONITRATE ER 30 MG TAB.ER.24H PO SCH (12:09)
[2018-03-23] MEDS: LOSARTAN 25 MG TAB PO SCH (12:10)
[2018-03-23] MEDS: CARVEDILOL 6.25 MG TAB PO SCH ×2 (12:11→17:20)
[2018-03-23 13:06] VITALS: RESP 18
[2018-03-23 14:34] LABS: Hemoglobin A1C 5.4 % (4.0-6.0)
[2018-03-23 16:53] LABS: Glucose,Whole Blood 118 mg/dL (75-99)
[2018-03-23 20:58] LABS: Glucose,Whole Blood 156 mg/dL (75-99)
--- NOTE | 2018-03-23 22:22 | P.PN ---
Subjective Progress Note Date: 03/23/18 Principal diagnosis: Non-ST elevated OH Patient is a 67 old male with a known history of COPD and hypertension came to ER with complaints of chest pain. Patient says that he has been having chest pain for the past 2 days mainly retrosternal pressure-like severe burning sensation lasting about 2 hours on and off. No radiation. Patient says that pain is 10 times worse than his GERD symptoms. Pain is associated with sweating which he had last night. Patient was given nitroglycerin when he came to the hospital which did help him symptomatically. Patient says that all his symptoms started 2 days ago when he was started on prednisone for skin rash which developed RT was exposed to coolent Solution. Discomfort was worse today prior to arrival and is now moderate. No history of similar symptoms previously. Chest x-ray showed calcified pleural plaques suggestive of prior asbestos exposure. There is COPD without acute processes seen. EKG showed no ST-T elevation. Troponin is 0.055 and 1.82 03/23/2018 Patient denied any chest pain currently. Patient underwent cardiac catheterization. No PCI was done. Otherwise patient denied any shortness of breath. No nausea vomiting or abdominal pain. Cardiology is following. All other review of systems negative except the above Current medications reviewed. Objective - Vital Signs Vital signs: Vital Signs Temp 98 F 03/23/18 20:00 Pulse 59 L 03/23/18 20:00 Resp 18 03/23/18 20:00 BP 118/56 03/23/18 20:00 Pulse Ox 95 03/23/18 20:00 Intake & Output 03/23/18 03/23/18 03/24/18 06:59 18:59 06:59 Intake Total 963.001 9850 Output Total 0 0 Balance 202.862 2854 0 Weight 81.9 kg 81.9 kg Intake: IV 75 Intake, IV Titration 135.171 100 Amount Heparin Sod,Pork in 0.45% 135.171 NaCl 25,000 unit In 0.45 % NaCl 1 500ml.bag @ 12 UNITS/KG/HR 19.59 mls/hr IV .Q24H [facility] Rx#: [id number] Sodium Chloride 0.9% 1, 100 000 ml @ 100 mls/hr IV . Q10H [facility] Rx#:[id number] Oral 1250 Output: Urine 0 0 Other: Voiding Method Toilet Toilet Toilet # Voids 1 3 0 # Bowel Movements 1 0 - Exam PHYSICAL EXAMINATION: Patient is lying in the bed comfortably, no acute distress, awake alert and oriented.. HEENT: Normocephalic. Neck is supple. Pupils reactive. Nostrils clear. Oral cavity is moist. Ears reveal no drainage. Neck reveals no JVD, carotid bruits, or thyromegaly. CHEST EXAMINATION: Trachea is central. Symmetrical expansion. Lung blood clear to auscultation and percussion. CARDIAC: Normal S1, S2 with no gallops. No murmurs ABDOMEN: Soft. Bowel sounds normal. No organomegaly. No abdominal bruits. Extremities: reveal no edema. No clubbing or cyanosis Neurologically awake, alert, oriented x3 with well-coordinated movements. No focal deficits noted Skin: No rash or skin lesions. Psychiatric: Coperative. Nonsuicidal Musculoskeletal: No joint swelling or deformity. Normal range of motion. - Labs CBC & Chem 7: 03/23/18 02:50 03/23/18 02:50 Labs: Abnormal Lab Results - Last 24 Hours (Table) 03/23/18 03/23/18 03/23/18 Range/Units 02:50 02:50 02:50 RBC 3.81 L (4.30-5.90) m/uL Hgb 12.2 L (13.0-17.5) gm/dL Hct 37.2 L (39.0-53.0) % Lymphocytes # 0.5 L (1.0-4.8) k/uL APTT (22.0-30.0) sec Chloride 108 H (98-107) mmol/L BUN 22 H (9-20) mg/dL Glucose 121 H (74-99) mg/dL POC Glucose (mg/dL) (75-99) mg/dL Total Creatine Kinase 213 H (55-170) U/L CK-MB (CK-2) 8.4 H* (0.0-2.4) ng/mL Troponin I 1.820 H* (0.000-0.034) ng/mL 03/23/18 03/23/18 03/23/18 Range/Units 02:50 06:14 12:01 RBC (4.30-5.90) m/uL Hgb (13.0-17.5) gm/dL Hct (39.0-53.0) % Lymphocytes # (1.0-4.8) k/uL APTT 65.7 H (22.0-30.0) sec Chloride (98-107) mmol/L BUN (9-20) mg/dL Glucose (74-99) mg/dL POC Glucose (mg/dL) 118 H 113 H (75-99) mg/dL Total Creatine Kinase (55-170) U/L CK-MB (CK-2) (0.0-2.4) ng/mL Troponin I (0.000-0.034) ng/mL 03/23/18 03/23/18 Range/Units 16:49 20:57 RBC (4.30-5.90) m/uL Hgb (13.0-17.5) gm/dL Hct (39.0-53.0) % Lymphocytes # (1.0-4.8) k/uL APTT (22.0-30.0) sec Chloride (98-107) mmol/L BUN (9-20) mg/dL Glucose (74-99) mg/dL POC Glucose (mg/dL) 118 H 156 H (75-99) mg/dL Total Creatine Kinase (55-170) U/L CK-MB (CK-2) (0.0-2.4) ng/mL Troponin I (0.000-0.034) ng/mL Assessment and Plan Assessment: Chest pain with Acute non-ST elevated OH. Status post cardiac catheterization. Possible gastritis with symptoms started after starting prednisone. Hypertension COPD Nicotine addiction ALLERGIC skin reaction currently on prednisone. Plan: Patient will be continued on heparin drip. Continue with telemetry monitoring and cardiology is following.. 2-D echocardiogram.. Counseled for smoking cessation. Will follow closely and further recommendations based on the clinical course. Time with Patient: Greater than 30
[2018-03-24] MEDS: methylPREDNISolone SOD SUCCI 40 MG/ML 1 ML VIAL IV SCH ×2 (01:12→07:56)
[2018-03-24 06:09] LABS: Glucose,Whole Blood 118 mg/dL (75-99)
[2018-03-24] MEDS: INSULIN ASPART 100 UNIT/ML 1 ML 10 ML VIAL SQ SCH ×2 (06:13→12:32)
[2018-03-24] MEDS: CARVEDILOL 6.25 MG TAB PO SCH (06:39)
[2018-03-24 07:07] LABS: Calcium 8.9 mg/dL (8.4-10.2); Potassium 4.9 mmol/L (3.5-5.1)
[2018-03-24] MEDS ORDERED: PANTOPRAZOLE 40 MG TABLET PO SCH (07:30)
[2018-03-24] MEDS: CLOBETASOL PROP 0.05% CR 15GM TOPICAL SCH (07:56)
[2018-03-24] MEDS: hydrOXYzine HCL 10 MG TAB PO SCH (07:57)
[2018-03-24] MEDS: LORATADINE 10 MG TAB PO SCH (07:58)
[2018-03-24] MEDS: ISOSORBIDE MONONITRATE ER 30 MG TAB.ER.24H PO SCH (07:58)
[2018-03-24] MEDS: SYMBICORT 160-4.5 MCG INHALER INHALATION SCH (08:23)
[2018-03-24] MEDS: IPRATROPIUM-ALBUTEROL 3 ML NEB INHALATION SCH ×2 (08:23→11:45)
[2018-03-24] MEDS ORDERED: CLOPIDOGREL 75 MG TAB PO SCH (09:00)
[2018-03-24] MEDS ORDERED: ASPIRIN 81 MG PO SCH (09:00)
[2018-03-24] MEDS ORDERED: ATORVASTATIN 40 MG TAB PO SCH (09:00)
[2018-03-24] MEDS: LOSARTAN 25 MG TAB PO SCH (10:44)
[2018-03-24 11:26] LABS: Glucose,Whole Blood 126 mg/dL (75-99)
[2018-03-24] MEDS ORDERED: LOSARTAN 25 MG TAB PO STA (12:24)
--- NOTE | 2018-03-24 12:24 | P.PN ---
Subjective Patient is doing well. He denies any chest discomfort dizziness lightheadedness or palpitations. Yesterday he underwent coronary angiography which revealed disease and a very small branch that was causing angina. However this blood pressure was elevated and he was monitored overnight for blood pressure management. Today's blood pressure was elevated is a lot better heart rate 7 the normal range Blood pressure 149 systolic Breath sounds are clear no rhonchi no crackles Heart sounds are normal normal S1 normal S2 Extremity is warm no edema Access site is healed well Abdomen soft Impression Coronary artery disease, non-Q-wave myocardial infarction, medical management recommended, no revascularization performed, not clinically indicated Hypertension. Current smoker Suggest complete cessation from alcohol use recommended and I discussed this with the patient. Low-salt diet, avoidance of canned, prepared, packaged foods Atorvastatin daily Carvedilol 6.25 mg twice daily, continue aspirin and Plavix Increase losartan to 50 mg by mouth daily May be discharged in the next 12-[address] Silva in 1-2 weeks Objective - Vital Signs Vital signs: Vital Signs Temp 97.9 F 03/24/18 04:00 Pulse 80 03/24/18 11:55 Resp 18 03/24/18 04:00 BP 143/79 03/24/18 08:58 Pulse Ox 96 03/24/18 08:58 Intake & Output 03/23/18 03/24/18 03/24/18 18:59 06:59 18:59 Intake Total 1425 480 240 Output Total 0 0 Balance 1425 480 240 Weight 81.6 kg Intake: IV 75 Intake, IV Titration 100 Amount Sodium Chloride 0.9% 1, 100 000 ml @ 100 mls/hr IV . Q10H [facility] Rx#:[id number] Oral 1250 480 240 Output: Urine 0 0 Other: Voiding Method Toilet Toilet # Voids 3 2 2 # Bowel Movements 1 0 - Labs CBC & Chem 7: 03/23/18 02:50 03/24/18 06:44 Labs: Abnormal Lab Results - Last 24 Hours (Table) 03/23/18 03/23/18 03/24/18 Range/Units 16:49 20:57 06:08 Sodium (137-145) mmol/L BUN (9-20) mg/dL Glucose (74-99) mg/dL POC Glucose (mg/dL) 118 H 156 H 118 H (75-99) mg/dL 03/24/18 03/24/18 Range/Units 06:44 11:24 Sodium 136 L (137-145) mmol/L BUN 37 H (9-20) mg/dL Glucose 101 H (74-99) mg/dL POC Glucose (mg/dL) 126 H (75-99) mg/dL
--- NOTE | 2018-03-24 14:00 | ECHOF ---
Referral Reason:nstemi MEASUREMENTS -------- HEIGHT: 185.4 cm WEIGHT: 81.6 kg BP: 155/72 RVIDd: 3.1 cm (< 3.3) IVSd: 1.3 cm (0.6 - 1.1) LVIDd: 5.4 cm (3.9 - 5.3) LVPWd: 1.3 cm (0.6 - 1.1) IVSs: 1.6 cm LVIDs: 2.8 cm LVPWs: 1.4 cm LAESV Index (A-L): 31.33 ml/m Ao Diam: 3.3 cm (2.0 - 3.7) AV Cusp: 1.6 cm (1.5 - 2.6) LA Diam: 3.2 cm (2.7 - 3.8) MV E [place]: 1.22 m/s MV DecT: 398 ms MV A [place]: 1.27 m/s MV E/A Ratio: 0.96 RAP: 5.00 mmHg RVSP: 13.31 mmHg FINDINGS -------- Resting bradycardia (HR<60bpm). This was a technically adequate study. The left ventricular size is normal. There is mild concentric left ventricular hypertrophy. Overa ll left ventricular systolic function is normal with, an EF between 55 - 60 %. The right ventricle is normal in size and function. LA is midly dilated 29-33ml/m2. RA appears enlarged. There is mild aortic valve sclerosis. There is no evidence of aortic regurgitation. There is no e vidence of aortic stenosis. Mild mitral annular calcification present. There is trace to mild mitral regurgitation. Trace tricuspid regurgitation present. Right ventricular systolic pressure is normal at < 35 mmHg. There is no evidence of pulmonary hypertension. The pulmonic valve was not well visualized. The aortic root size is normal. Normal inferior vena cava with normal inspiratory collapse consistent with estimated right atrial pre ssure of 5 mmHg. There is no pericardial effusion. CONCLUSIONS -------- 1. Resting bradycardia (HR<60bpm). 2. This was a technically adequate study. 3. The left ventricular size is normal. 4. There is mild concentric left ventricular hypertrophy. 5. Overall left ventricular systolic function is normal with, an EF between 55 - 60 %. 6. LA is midly dilated 29-33ml/m2. 7. RA appears enlarged. 8. There is mild aortic valve sclerosis. 9. Mild mitral annular calcification present. 10. There is trace to mild mitral regurgitation. 11. Trace tricuspid regurgitation present. 12. Right ventricular systolic pressure is normal at < 35 mmHg. 13. There is no evidence of pulmonary hypertension. 14. The pulmonic valve was not well visualized. 15. The aortic root size is normal. 16. There is no pericardial effusion. FUR COMBER: Antwan Cameron RDCS
[2018-03-24 15:43] VITALS: BP 145/77; PULSE 52; TEMP 97.8
--- NOTE | 2018-03-24 18:17 | CONS ---
CONSULTATION DATE OF CONSULTATION: 03/24/2018. REQUESTING PHYSICIAN: Dr. Schulz. REASON FOR CONSULTATION: Rash. HISTORY OF PRESENT ILLNESS: The patient is a 67-year-old male who was admitted to the hospital for chest pain. He states the chest pain started after taking oral prednisone he was prescribed for a rash. He was recently treated in the dermatology office for contact dermatitis with a series of 4 intramuscular steroid injections, oral prednisone taper, topical fluocinonide ointment, halobetasol ointment, Zyrtec and hydroxyzine. He states the rash is now improving. He is currently using clobetasol propionate topical cream twice a day while in the hospital. PAST MEDICAL HISTORY: COPD and hypertension. PAST SURGICAL HISTORY: Appendectomy, back surgery, orthopedic surgery. MEDICATIONS ON ADMISSION: See list. ALLERGIES: No known drug allergies. SOCIAL HISTORY: Smoking status: Current every day smoker. Past alcohol use history: None reported. Past drug use history: None reported. REVIEW OF SYSTEMS: SKIN: Positive for intermittent rash on the arms and neck since 2013. All other review of systems noncontributory. PHYSICAL EXAMINATION: SKIN: Well-demarcated geometric eczematous patches distributed on the neck, chest, arms and hands. IMPRESSION: Contact dermatitis related to solvent. RECOMMENDATIONS: 1. Continue clobetasol propionate cream applied to affected areas on neck, chest and arms twice daily. 2. Follow up with [facility] on Tuesday. The patient already has appointment scheduled. Thank you very much for the consultation. I performed a History & Physical Examination of the patient and discussed their management with nurse practitioner. I reviewed the nurse practitioner's note and agree with the documented findings and plan of care. MMODL / IJN: [id number] / MTDD
--- NOTE | 2018-03-24 22:19 | P.DS ---
Providers Date of admission: 03/22/18 15:23 Expected date of discharge: 03/24/18 Attending physician: Kalpesh Tse Consults: 03/22/18 15:22 Consult Physician Stat Consulting Provider: Jorge Luis Hunter Consult Reason/Comments: nstemi Do you want consulting provider notified?: Yes 03/22/18 21:16 Consult Physician Routine Consulting Provider: Corky Duong Consult Reason/Comments: see's in outpatient setting for rash Do you want consulting provider notified?: Yes Primary care physician: Michelle Hussein Hospital Course: Discharge diagnosis Chest pain with Acute non-ST elevated NM. Status post cardiac catheterization. No PCI was required. Medical management per cardiology. Possible gastritis with symptoms started after starting prednisone. Hypertension COPD Nicotine addiction ALLERGIC skin reaction currently on prednisone. Hospital course Patient is a 67 old male with a known history of COPD and hypertension came to ER with complaints of chest pain. Patient says that he has been having chest pain for the past 2 days mainly retrosternal pressure-like severe burning sensation lasting about 2 hours on and off. No radiation. Patient says that pain is 10 times worse than his GERD symptoms. Pain is associated with sweating which he had last night. Patient was given nitroglycerin when he came to the hospital which did help him symptomatically. Patient says that all his symptoms started 2 days ago when he was started on prednisone for skin rash which developed RT was exposed to coolent Solution. Discomfort was worse today prior to arrival and is now moderate. No history of similar symptoms previously. Chest x-ray showed calcified pleural plaques suggestive of prior asbestos exposure. There is COPD without acute processes seen. EKG showed no ST-T elevation. Troponin is 0.055 and 1.82 03/23/2018 Patient denied any chest pain currently. Patient underwent cardiac catheterization. No PCI was done. Otherwise patient denied any shortness of breath. No nausea vomiting or abdominal pain. Cardiology is following. 03/24/2018 Patient denied any new complaints today. Shortness of breath is much improved. No commerce of chest pain or short shortness of breath. Stable to be discharged home. Continued on medical management as per cardiology. Plan: Patient was continued on heparin drip. Continued with telemetry monitoring and cardiology seen the patient... 2-D echocardiogram showed normal ejection fraction. Patient underwent cardiac catheterization and no PCI was required.. which revealed nonobstructive disease and a very small branch that was causing angina. Cardiology recommends medical management. Counseled for smoking cessation. Patient is stable to be discharged home. Follow with cardiology as an outpatient. PHYSICAL EXAMINATION: Patient is lying in the bed comfortably, no acute distress, awake alert and oriented.. HEENT: Normocephalic. Neck is supple. Pupils reactive. Nostrils clear. Oral cavity is moist. Ears reveal no drainage. Neck reveals no JVD, carotid bruits, or thyromegaly. CHEST EXAMINATION: Trachea is central. Symmetrical expansion. Lung blood clear to auscultation and percussion. CARDIAC: Normal S1, S2 with no gallops. No murmurs ABDOMEN: Soft. Bowel sounds normal. No organomegaly. No abdominal bruits. Extremities: reveal no edema. No clubbing or cyanosis Neurologically awake, alert, oriented x3 with well-coordinated movements. No focal deficits noted Skin: No rash or skin lesions. Psychiatric: Coperative. Nonsuicidal Musculoskeletal: No joint swelling or deformity. Normal range of motion. Vital Signs - 24 hr 03/24/18 03/24/18 03/24/18 00:00 04:00 08:00 Temperature 97.9 F 97.6 F Pulse Rate Pulse Rate [ 64 67 61 Right Pulse Oximetery] Pulse Rate [ Room Air Post Exercise] Pulse Rate [ Room Air at Rest] Respiratory 16 16 18 Rate Blood Pressure 102/58 109/80 145/79 [Right Arm] Blood Pressure [Room Air Post Exercise] Blood Pressure [Room Air at Rest] O2 Sat by Pulse 96 98 97 Oximetry O2 Sat by Pulse Oximetry [Room Air Post Exercise] O2 Sat by Pulse Oximetry [Room Air at Rest] 03/24/18 03/24/18 03/24/18 08:23 08:32 08:58 Temperature Pulse Rate 76 77 Pulse Rate [ Right Pulse Oximetery] Pulse Rate [ 61 Room Air Post Exercise] Pulse Rate [ 60 Room Air at Rest] Respiratory Rate Blood Pressure [Right Arm] Blood Pressure 149/86 [Room Air Post Exercise] Blood Pressure 143/79 [Room Air at Rest] O2 Sat by Pulse Oximetry O2 Sat by Pulse 97 Oximetry [Room Air Post Exercise] O2 Sat by Pulse 96 Oximetry [Room Air at Rest] 03/24/18 03/24/18 03/24/18 11:45 11:55 12:00 Temperature 97.8 F Pulse Rate 78 80 Pulse Rate [ 52 L Right Pulse Oximetery] Pulse Rate [ Room Air Post Exercise] Pulse Rate [ Room Air at Rest] Respiratory 18 Rate Blood Pressure 145/77 [Right Arm] Blood Pressure [Room Air Post Exercise] Blood Pressure [Room Air at Rest] O2 Sat by Pulse 96 Oximetry O2 Sat by Pulse Oximetry [Room Air Post Exercise] O2 Sat by Pulse Oximetry [Room Air at Rest] Patient Condition at Discharge: Stable Plan - Discharge Summary Discharge Rx Participant: Yes New Discharge Prescriptions: New Aspirin 81 mg PO DAILY #30 chew Atorvastatin [Lipitor] 40 mg PO DAILY #30 tab Carvedilol [Coreg] 6.25 mg PO BID-W/MEALS #60 tab Clopidogrel [Plavix] 75 mg PO DAILY #30 tab Isosorbide Mononitrate ER [Imdur] 30 mg PO DAILY #30 tab.er.24h Losartan [Cozaar] 50 mg PO DAILY #30 tab Continue Budesonide-Formot 160-4.5 Mcg [Symbicort 160-4.5 Mcg Inhaler] 2 puff INHALATION RT-BID Tiotropium [place] [Spiriva] 1 cap INHALATION RT-DAILY hydrOXYzine HCL [Atarax] 10 mg PO DAILY Halobetasol Propionate 1 applic TOPICAL BID predniSONE See Taper PO DAILY Cetirizine HCl [Zyrtec] 10 mg PO DAILY Discharge Medication List Budesonide-Formot 160-4.5 Mcg [Symbicort 160-4.5 Mcg Inhaler] 2 puff INHALATION RT-BID 05/16/15 [History] Cetirizine HCl [Zyrtec] 10 mg PO DAILY 03/22/18 [History] Halobetasol Propionate 1 applic TOPICAL BID 03/22/18 [History] Tiotropium [place] [Spiriva] 1 cap INHALATION RT-DAILY 03/22/18 [History] hydrOXYzine HCL [Atarax] 10 mg PO DAILY 03/22/18 [History] predniSONE See Taper PO DAILY 03/22/18 [History] Aspirin 81 mg PO DAILY #30 chew 03/24/18 [Rx] Atorvastatin [Lipitor] 40 mg PO DAILY #30 tab 03/24/18 [Rx] Carvedilol [Coreg] 6.25 mg PO BID-W/MEALS #60 tab 03/24/18 [Rx] Clopidogrel [Plavix] 75 mg PO DAILY #30 tab 03/24/18 [Rx] Isosorbide Mononitrate ER [Imdur] 30 mg PO DAILY #30 tab.er.24h 03/24/18 [Rx] Losartan [Cozaar] 50 mg PO DAILY #30 tab 03/24/18 [Rx] Follow up Appointment(s)/Referral(s): Jorge Luis Hunter MD [STAFF PHYSICIAN] - 04/07/18 6:15 pm (Tuesday) Michelle Hussein DO [Primary Care Provider] - 03/27/18 3:30 pm (Tuesday) Patient Instructions/Handouts: *Surgery [facility] - After Heart Catheterization - Vice President Process Instructions, Left Heart Catheterization (DC) Activity/Diet/Wound Care/Special Instructions: Patient may go home from a cardiac standpoint and follow with Dr. Silva as scheduled. He should be discharged home on atorvastatin 80 mg by mouth daily, aspirin, baby, as well as Plavix, losartan 50 g by mouth daily at noontime and carvedilol 6.25 mg twice daily Discharge Disposition: HOME SELF-CARE
[2018-03-25] MEDS ORDERED: LOSARTAN 50 MG TAB PO SCH (09:00)
== END 2018-03-24 16:36 | disposition home or self-care (01) | DRG 282 ==
LOC: EC 13:44 → 6SEL 15:23
PROVIDERS: ADMIT Internal Medicine; ATTEND Internal Medicine
PROC: B2111ZZ Fluoroscopy of Multiple Coronary Arteries using Low Osmolar Contrast (ICD-10-PCS; 2018-03-23)
PROC: B2151ZZ Fluoroscopy of Left Heart using Low Osmolar Contrast (ICD-10-PCS; 2018-03-23)
PROC: 4A023N7 Measurement of Cardiac Sampling and Pressure, Left Heart, Percutaneous Approach (ICD-10-PCS; principal; 2018-03-23 08:55)
DX: I21.4 Non-ST elevation (NSTEMI) myocardial infarction (principal); F17.200 Nicotine dependence, unspecified, uncomplicated; I10 Essential (primary) hypertension; I25.10 Atherosclerotic heart disease of native coronary artery without angina pectoris; J44.9 Chronic obstructive pulmonary disease, unspecified; L25.9 Unspecified contact dermatitis, unspecified cause; Z77.090 Contact with and (suspected) exposure to asbestos; Z79.02 Long term (current) use of antithrombotics/antiplatelets; Z79.51 Long term (current) use of inhaled steroids; Z79.82 Long term (current) use of aspirin; Z82.49 Family history of ischemic heart disease and other diseases of the circulatory system; Z82.3 Family history of stroke; Z82.5 Family history of asthma and other chronic lower respiratory diseases; Z79.52 Long term (current) use of systemic steroids; Z79.899 Other long term (current) drug therapy
CPT/HCPCS: 36415; 71046; 80048; 80053; 80061; 82550; 82553; 83036; 83735; 84484; 85025; 85610; 85730; 93005; 93306; 93458; 94640; 96365; 96366; 96376; 99291

== ENCOUNTER → 2018-05-09 | Outpatient (CLI) | payer BC, MEDICARE ==
[2018-05-09 10:55] LABS: Albumin 3.5 g/dL (3.5-5.0); Calcium 8.6 mg/dL (8.4-10.2); Potassium 4.4 mmol/L (3.5-5.1); Total Bilirubin 0.5 mg/dL (0.2-1.3); Total Protein 5.9 g/dL (6.3-8.2)
== END | disposition home or self-care (01) ==
LOC: LABWHC1 08:48
PROVIDERS: ATTEND Internal Medicine Clinical Cardiac Electrophysiology
DX: N18.9 Chronic kidney disease, unspecified (principal); I10 Essential (primary) hypertension; I25.10 Atherosclerotic heart disease of native coronary artery without angina pectoris
CPT/HCPCS: 36415; 80053; 80061

== ENCOUNTER 2019-01-08 12:36 | Emergency (ER) | payer MEDICARE, BC ==
[2019-01-08 13:11] VITALS: RESP 18
[2019-01-08] MEDS ORDERED: SODIUM CHLORIDE 0.9% 500 ML 500 ML IV STA (13:46)
[2019-01-08] MEDS ORDERED: HYDROmorphone 1 MG/ML 1 ML SYRINGE IVP STA (13:47)
[2019-01-08] MEDS ORDERED: KETOROLAC 60 MG/2 ML VIAL IVP STA (13:47)
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
[2019-01-08 13:59] LABS: Basophils # (A) 0.1 k/uL (0-0.2); Basophils % (A) 1 %; Eosinophils # (A) 0.3 k/uL (0-0.7); Eosinophils % (A) 3 %; HCT 41.2 % (39.0-53.0); HGB 13.2 gm/dL (13.0-17.5); Lymphocytes # (A) 0.8 k/uL (1.0-4.8); Lymphocytes % (A) 9 %; MCH 30.3 pg (25.0-35.0); MCV 94.5 fL (80.0-100.0); Mean Platelet Volume 6.2; Monocytes # (A) 1.2 k/uL (0-1.0); Monocytes % (A) 14 %; Neutrophils # (A) 6.2 k/uL (1.3-7.7); Neutrophils % (A) 72 %; Platelet Count 347 k/uL (150-450); RBC 4.36 m/uL (4.30-5.90); RDW 13.6 % (11.5-15.5); WBC 8.6 k/uL (3.8-10.6)
[2019-01-08 14:07] LABS: Albumin 3.5 g/dL (3.5-5.0); Calcium 8.4 mg/dL (8.4-10.2); Magnesium 2.4 mg/dL (1.6-2.3); Potassium 4.5 mmol/L (3.5-5.1); Total Bilirubin 0.4 mg/dL (0.2-1.3); Total Protein 6.1 g/dL (6.3-8.2)
[2019-01-08 14:15] LABS: INR 0.9 (<1.2); Partial Thromboplastin Time 22.6 sec (22.0-30.0); Prothrombin Time 9.6 sec (9.0-12.0)
--- NOTE | 2019-01-08 14:29 | XR ---
EXAMINATION TYPE: XR chest 2V DATE OF EXAM: 01/08/2019 COMPARISON: Prior chest x-ray 03/22/[address] 04/04/2017 HISTORY: Chest pain TECHNIQUE: Frontal and lateral views of the chest are obtained. FINDINGS: Pleural calcifications are noted. There is no focal air space opacity, pleural effusion, or pneumothorax seen. The cardiac silhouette size is within normal limits. The osseous structures ar e intact. There are overlying cardiac leads. There are prominent lung lines compatible with underlyin g COPD. IMPRESSION: Correlate for asbestos related disease.
[2019-01-08 15:22] VITALS: BP 139/85; PULSE 48; TEMP 98
== END 2019-01-08 15:21 | disposition home or self-care (01) ==
LOC: EC 12:36
DX: R07.89 Other chest pain (principal); R42 Dizziness and giddiness; R00.1 Bradycardia, unspecified; J44.9 Chronic obstructive pulmonary disease, unspecified; I10 Essential (primary) hypertension; F17.200 Nicotine dependence, unspecified, uncomplicated; Z79.51 Long term (current) use of inhaled steroids; Z79.52 Long term (current) use of systemic steroids; Z79.899 Other long term (current) drug therapy
CPT/HCPCS: 36415; 93005; 80053; 83735; 84484; 85025; 85610; 85730; 71046; 99285; 96374; 96375; J1885; J1170

== ENCOUNTER 2019-05-08 00:17 | Emergency (ER) | payer BC, MEDICARE ==
[2019-05-08 00:32] VITALS: BP 162/85; PULSE 60; RESP 20; TEMP 97.7
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
== END 2019-05-08 01:09 | disposition home or self-care (01) ==
LOC: EC 00:17
DX: H11.32 Conjunctival hemorrhage, left eye (principal); J44.9 Chronic obstructive pulmonary disease, unspecified; I10 Essential (primary) hypertension; I25.2 Old myocardial infarction; F17.200 Nicotine dependence, unspecified, uncomplicated; Z79.51 Long term (current) use of inhaled steroids; Z79.899 Other long term (current) drug therapy
CPT/HCPCS: 99283

== ENCOUNTER 2019-10-30 09:40 | Inpatient (IN) | payer BC, MEDICARE ==
[2019-10-30] MEDS ORDERED: IOPAMIDOL CONTRAST (ORAL USE) VIAL PO PRN (10:05)
[2019-10-30] MEDS ORDERED: SODIUM CHLORIDE 0.9% 500 ML 500 ML IV STA (10:07)
[2019-10-30] MEDS ORDERED: ONDANSETRON 4 MG/2 ML VIAL IVP STA (10:07)
[2019-10-30] MEDS ORDERED: SODIUM CHLORIDE 0.9% 1,000 ML IV STA (10:07)
[2019-10-30] MEDS ORDERED: HYDROmorphone 1 MG/ML 1 ML SYRINGE IVP STA (10:07)
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
[2019-10-30 10:31] LABS: Basophils # (A) 0.1 k/uL (0-0.2); Basophils % (A) 1 %; Eosinophils # (A) 0.3 k/uL (0-0.7); Eosinophils % (A) 4 %; HCT 38.8 % (39.0-53.0); Lymphocytes # (A) 0.8 k/uL (1.0-4.8); Lymphocytes % (A) 12 %; MCH 33.2 pg (25.0-35.0); MCHC 33.7 g/dL (31.0-37.0); MCV 98.5 fL (80.0-100.0); Mean Platelet Volume 7.9; Monocytes # (A) 0.7 k/uL (0-1.0); Monocytes % (A) 11 %; Neutrophils # (A) 4.4 k/uL (1.3-7.7); Neutrophils % (A) 70 %; Platelet Count 197 k/uL (150-450); RBC 3.93 m/uL (4.30-5.90); RDW 12.9 % (11.5-15.5); WBC 6.3 k/uL (3.8-10.6)
[2019-10-30 11:38] LABS: Albumin 2.8 g/dL (3.5-5.0); Calcium 7.7 mg/dL (8.4-10.2); Total Bilirubin 0.9 mg/dL (0.2-1.3); Total Protein 5.5 g/dL (6.3-8.2)
--- NOTE | 2019-10-30 12:41 | CT ---
EXAMINATION TYPE: CT abdomen pelvis w con DATE OF EXAM: 10/30/2019 COMPARISON: HISTORY: Abdominal pain with dizziness. CT DLP: 1104.1 mGycm CONTRAST: CT scan of the abdomen and pelvis is performed without Oral Contrast and with IV Contrast, patient in jected with 100 mL of Isovue 370. FINDINGS: LUNG BASES-: No visible nodule. No infiltrate. Calcified pleural plaques noted. LIVER/GB: No calcified gallstones. Fatty liver. No space occupying hepatic lesion. Biliary tree is of normal caliber. PANCREAS: No inflammation. No distinct mass. SPLEEN: No splenic enlargement. No lesion seen. ADRENALS: No nodule. No thickening. KIDNEYS/BLADDER: No hydronephrosis. Nonobstructing calculus right kidney. No distinct renal mass. U rinary bladder grossly unremarkable. BOWEL: Dilated small bowel measuring up to 4 cm with right lower quadrant transition noted. Small laurie unt of interloop fluid seen. No evidence of free air or abscess. Small amount of ascites about the li farida edge. GENITAL ORGANS: No gross abnormality. LYMPH NODES: No greater than 1cm abdominal or pelvic lymph nodes are appreciated. AORTA: No significant abnormality. OSSEOUS STRUCTURES: Moderate degenerative change lumbar spine. OTHER: No significant additional abnormality is seen. IMPRESSION: 1. Findings compatible with distal small bowel obstruction.
[2019-10-30] MEDS ORDERED: ONDANSETRON 4 MG/2 ML VIAL IVP PRN (13:21)
[2019-10-30] MEDS ORDERED: NALOXONE 0.4 MG/ML 1 ML VIAL IV PRN (13:21)
--- NOTE | 2019-10-30 13:56 | XR ---
EXAMINATION TYPE: XR chest 1V confirm line [facility] DATE OF EXAM: 10/30/2019 COMPARISON: 01/08/2019 HISTORY: NG tube placement TECHNIQUE: Single frontal view of the chest is obtained. FINDINGS: Enteric tube has been placed in this satisfactory in position with its fenestrated portion beyond the gastroesophageal junction overlying the region of the gastric fundus. Pleural plaquing is again redemonstrated greater on the right than left. Cardiomediastinal silhouette is upper limits of normal as seen on the prior. No new focal consolidation. Eventration of the right hemidiaphragm. IMPRESSION: No acute process. Enteric tube is satisfactorily placed with its fenestrated portion bey ond the gastroesophageal junction.
[2019-10-30] MEDS ORDERED: IPRATROPIUM-ALBUTEROL 3 ML NEB INHALATION PRN (14:17)
[2019-10-30] MEDS: PIPERACILLIN-TAZOBACTAM 3.375 GM in SODIUM CHLORIDE 0.9% 100 ML IVPB SCH ×2 (16:29→23:42)
[2019-10-30] MEDS ORDERED: CARVEDILOL 6.25 MG TAB PO SCH (17:30)
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
[2019-10-30 17:59] LABS: Appearance,Urine Clear (Clear); Bilirubin,Urine Negative (Negative); Blood,Urine Negative (Negative); Color,Urine Yellow; Glucose,Urine (UA) Negative (Negative); Ketones,Urine Negative (Negative); Leukocyte Esterase,Urine Negative (Negative); Nitrite,Urine Negative (Negative); Protein,Urine Trace (Negative); Urobilinogen,Urine <2.0 mg/dL (<2.0)
[2019-10-30 18:05] LABS: Specific Gravity,Urine >1.050 (1.001-1.035)
[2019-10-30] MEDS ORDERED: SYMBICORT 160-4.5 MCG INHALER INHALATION SCH (20:00)
[2019-10-30] MEDS: IPRATROPIUM-ALBUTEROL 3 ML NEB INHALATION SCH ×2 (20:33→21:11)
[2019-10-30] MEDS: BUDESONIDE 0.5 MG/2 ML NEBU INHALATION SCH (20:34)
[2019-10-30] MEDS: HEPARIN SODIUM,PORCINE 5,000 UNIT/ML 1 ML VIAL SQ SCH (23:42)
[2019-10-31] MEDS: HYDROmorphone 1 MG/ML 1 ML SYRINGE IVP PRN ×2 (01:07→07:01)
[2019-10-31] MEDS: IPRATROPIUM-ALBUTEROL 3 ML NEB INHALATION SCH ×4 (07:32→20:57)
[2019-10-31] MEDS: BUDESONIDE 0.5 MG/2 ML NEBU INHALATION SCH ×2 (07:32→20:57)
[2019-10-31] MEDS ORDERED: IPRATROPIUM 0.5 MG/2.5 ML NEBU INHALATION SCH (08:00)
[2019-10-31] MEDS: PANTOPRAZOLE 40 MG/10 ML VIAL IV SCH (08:15)
[2019-10-31] MEDS: PIPERACILLIN-TAZOBACTAM 3.375 GM in SODIUM CHLORIDE 0.9% 100 ML IVPB SCH ×3 (08:15→23:34)
[2019-10-31] MEDS: HEPARIN SODIUM,PORCINE 5,000 UNIT/ML 1 ML VIAL SQ SCH ×3 (08:15→23:33)
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
[2019-10-31 10:11] LABS: Potassium 4.5 mmol/L (3.5-5.1)
[2019-10-31 10:30] LABS: Basophils # (A) 0.1 k/uL (0-0.2); Basophils % (A) 1 %; Eosinophils # (A) 0.3 k/uL (0-0.7); Eosinophils % (A) 4 %; HCT 40.6 % (39.0-53.0); Lymphocytes # (A) 0.7 k/uL (1.0-4.8); Lymphocytes % (A) 10 %; MCH 32.3 pg (25.0-35.0); MCHC 32.2 g/dL (31.0-37.0); MCV 100.4 fL (80.0-100.0); Mean Platelet Volume 6.9; Monocytes # (A) 0.7 k/uL (0-1.0); Monocytes % (A) 11 %; Neutrophils % (A) 73 %; Platelet Count 344 k/uL (150-450); RBC 4.04 m/uL (4.30-5.90); WBC 6.9 k/uL (3.8-10.6)
[2019-10-31] MEDS: SODIUM CHLORIDE 0.9% 1,000 ML IV SCH ×2 (11:40→23:35)
--- NOTE | 2019-10-31 12:32 | XR ---
2 view abdomen HISTORY: Small bowel obstruction Two views of the abdomen on 4 images Tip of the NG tube shows the distal tip overlying the region of the gastroesophageal junction, side-p ort is within the distal esophagus. Probable subsegmental basilar atelectatic changes are present farida qing scarring, there are calcified pleural plaque along the right hemidiaphragm, right lower hemithora x. Vascular calcifications are present within the pelvis. Degenerative disc disease present within th e visualized spine. There are air-filled loops of small and large bowel. No evident pneumoperitoneum. IMPRESSION: NG tube is described. Bowel distention is somewhat less conspicuous than seen on CT
[2019-10-31] MEDS ORDERED: IV FLUID CONTINUATION 1,000 ML IV ONE (13:04)
[2019-10-31] MEDS ORDERED: DEXAMETHASONE SOD PHOSPHATE 10 MG/ML 1 ML VIAL IV ONE (13:14)
[2019-10-31] MEDS ORDERED: ONDANSETRON 4 MG/2 ML VIAL IVP ONE (13:15)
[2019-10-31] MEDS ORDERED: METOPROLOL TARTRATE 5 MG/5 ML VIAL IVP ONE (13:16)
[2019-10-31] MEDS ORDERED: MIDAZOLAM 2 MG/2 ML VIAL IVP ONE (13:40)
[2019-10-31] MEDS ORDERED: fentaNYL (PF) 50 MCG/ML 2 ML AMP IVP ONE (13:41)
[2019-10-31] MEDS ORDERED: fentaNYL (PF) 50 MCG/ML 2 ML AMP ONE (14:20)
[2019-10-31] MEDS ORDERED: ROCURONIUM BROMIDE 10 MG/ML 10 ML VIAL IV ONE (14:20)
[2019-10-31] MEDS ORDERED: MIDAZOLAM 2 MG/2 ML VIAL ONE (14:20)
[2019-10-31] MEDS ORDERED: ePHEDrine SULFATE/0.9% NACL/PF 50 MG/5 ML SYRINGE IV ONE (14:20)
[2019-10-31] MEDS ORDERED: GLYCOPYRROLATE 0.2 MG/ML 2 ML VIAL ONE (14:20)
[2019-10-31] MEDS ORDERED: NEOSTIGMINE 1 MG/ML 10 ML VIAL ONE (14:20)
[2019-10-31] MEDS ORDERED: PHENYLEPHRINE-0.9% NACL SYG 1 MG/10 ML SYRINGE ONE (14:20)
[2019-10-31] MEDS ORDERED: PROPOFOL 10 MG/ML 20 ML VIAL IV ONE (14:20)
[2019-10-31] MEDS ORDERED: SUCCINYLCHOLINE CHLORIDE 100 MG/5 ML SYR IV ONE (14:20)
[2019-10-31] MEDS ORDERED: LACTATED RINGERS 1,000 ML IV ONE (14:28)
[2019-10-31] MEDS ORDERED: ONDANSETRON 4 MG/2 ML VIAL IVP PRN (15:16)
--- NOTE | 2019-10-31 15:19 | P.OP ---
Date of Procedure: 10/31/19 Preoperative Diagnosis: Small bowel obstruction Postoperative Diagnosis: Small bowel obstruction Procedure(s) Performed: Lysis of extensive adhesions Anesthesia: DILLON Surgeon: Rigoberto Sheets Estimated Blood Loss (ml): 30 Pathology: none sent Condition: stable Disposition: PACU Description of Procedure: Patient's placed on the operating table in supine position. He received general anesthesia. His abdomen was prepped and draped usual sterile fashion. The skin was incised midline and electrocautery the fascia was divided. There were extensive adhesions noted within the abdomen. Approximately 40 minutes of operative time used to lyse adhesions. Once the adhesions were lysed the small bowel was run from the ligament of Treitz to the terminal ileum. There appeared to be obstruction of the small bowel in the distal ileum due to adhesions. The abdomen was irrigated there is no bleeding seen. Small was run again there is no evidence of any injury to the small bowel. The fascia was then closed with looped #1 PDS suture. Skin was closed doug. Patient top procedure well and sent to recovery in stable condition.
--- NOTE | 2019-10-31 23:33 | P.PN ---
Progress Note - Text Progress Note Date: 10/31/19 Presenting complaint: Abdominal pain Interval history: 69-year-old patient of . Chronic stable medical conditions include COPD, hypertension, questionable history of [place] asbestos exposure. Smoker. Patient admitted with small bowel obstruction. Today-NG tube remains in place. Has positive flatus this morning. Less distended. Less abdominal pain. Review of systems: Was done for constitutional, cardiovascular, GI, pulmonary. relevant finding as above Active Medications Albuterol/Ipratropium (Duoneb 0.5 Mg-3 Mg/3 Ml Soln) 3 ml INHALATION RT-QID PRN PRN Reason: Shortness Of Breath Or Wheezing Last Admin: 10/30/19 21:00 Dose: 3 ml Documented by: Albuterol/Ipratropium (Duoneb 0.5 Mg-3 Mg/3 Ml Soln) 3 ml INHALATION RT-QID [facility] Last Admin: 10/31/19 20:57 Dose: 3 ml Documented by: Budesonide (Pulmicort) 0.5 mg INHALATION RT-BID [facility] Last Admin: 10/31/19 20:57 Dose: 0.5 mg Documented by: Heparin Sodium (Porcine) (Heparin) 5,000 unit SQ Q8HR [facility] Last Admin: 10/31/19 16:55 Dose: 5,000 unit Documented by: Hydromorphone HCl (Dilaudid) 1 mg IVP Q3HR PRN PRN Reason: Severe Pain Last Admin: 10/31/19 07:01 Dose: 1 mg Documented by: Piperacillin Sod/Tazobactam (Sod 3.375 gm/ Sodium Chloride) 100 mls @ 200 mls/hr IVPB Q8HR [facility] Last Admin: 10/31/19 16:53 Dose: 200 mls/hr Documented by: Sodium Chloride (Saline 0.9%) 1,000 mls @ 100 mls/hr IV .Q10H [facility] Last Admin: 10/31/19 11:40 Dose: 100 mls/hr Documented by: Ropivacaine 250 mg/Hydromorphone HCl 5 mg/ Sodium Chloride 250 mls @ 0 mls/hr EPIDURAL .Q0M PRN; Protocol PRN Reason: Pain Control Naloxone HCl (Narcan) 0.2 mg IV Q2M PRN PRN Reason: Opioid Reversal Ondansetron HCl (Zofran) 4 mg IVP Q6HR PRN PRN Reason: Nausea And Vomiting Pantoprazole Sodium (Protonix) 40 mg IV DAILY [facility] Last Admin: 10/31/19 08:15 Dose: 40 mg Documented by: On examination: VITAL SIGNS: 98.3, 50, 20, 148/70, 95% room air GENERAL APPEARANCE: Laying in bed, awake. HEENT: Normal external appearance of nose and ear. Oral cavity normal, NG tube to suction EYES: Pupils equal. Conjunctiva normal. NECK: JVD not raised. Mass not palpable. RESPIRATORY: Respiratory effort normal. Lungs decreased breath sound CARDIOVASCULAR: First and second sounds normal. No edema. ABDOMEN: Soft. Mild tenderness, hyperactive bowel sounds minimal distention Liver and spleen not palpable. No tenderness. No mass palpable. PSYCHIATRY: Alert and oriented x3. Mood and affect normal. INVESTIGATIONS, reviewed in the clinical context: White count 6.9 hemoglobin 13 potassium 4.5 creatinine 1.25 Abdominal x-ray-some decrease in obstructive findings Assessment: -Acute small bowel obstruction with slow to respond -COPD in a current smoker -Chronic nicotine dependence patient cigarette smoker -Essential hypertension -Coronary artery disease prior history of SC. Plan: Patient be followed by Dr. Sheets from general surgery. Possible plan for surgery this afternoon. Patient is on IV Zosyn. Care was discussed with the patient question were answered. Add nicotine patch. On subcu heparin for DT prophylaxis.
--- NOTE | 2019-11-01 07:20 | P.PN ---
Progress Note - Text Progress Note Date: 11/01/19 Postoperative day # 1 status post expected laparotomy/epidural catheter placed for postoperative analgesia, patient doing well epidural site okay, patient currently on combination of epidural infusion solution of Ropivacaine 0.0625% and Dilaudid 20 g per mL the infusion rate at 8 ml per hour , patient had no motor deficit epidural site okay , vital signs stable , VAS 1-2/10 , Assessment and plan= post operative day #1 patient doing well ,pain well controlled , there is no anesthesia related complications
[2019-11-01] MEDS: SODIUM CHLORIDE 0.9% 1,000 ML IV SCH ×3 (07:29→23:36)
[2019-11-01] MEDS: HEPARIN SODIUM,PORCINE 5,000 UNIT/ML 1 ML VIAL SQ SCH ×3 (07:29→21:54)
[2019-11-01] MEDS: PANTOPRAZOLE 40 MG/10 ML VIAL IV SCH (07:29)
[2019-11-01] MEDS: NICOTINE 21MG/24HR PATCH TRANSDERM SCH ×2 (07:30)
[2019-11-01] MEDS: PIPERACILLIN-TAZOBACTAM 3.375 GM in SODIUM CHLORIDE 0.9% 100 ML IVPB SCH ×3 (07:30→23:36)
[2019-11-01] MEDS: BUDESONIDE 0.5 MG/2 ML NEBU INHALATION SCH ×2 (07:48→19:38)
[2019-11-01] MEDS: IPRATROPIUM-ALBUTEROL 3 ML NEB INHALATION SCH ×4 (07:48→19:38)
[2019-11-01 09:59] LABS: Calcium 7.9 mg/dL (8.4-10.2); Potassium 4.9 mmol/L (3.5-5.1)
--- NOTE | 2019-11-01 14:27 | P.PN ---
Subjective Progress Note Date: 11/01/19 CHIEF COMPLAINT: Abdominal pain HISTORY OF PRESENT ILLNESS: Patient is status post exploratory lap with lysis of adhesions. Postoperative #1. Patient examined at the bedside. Epidural infusing. His pain is controlled. NG tube to low intermittent suction. Jovany masterson reports he is passing flatus. PHYSICAL EXAM: VITAL SIGNS: Reviewed. GENERAL: Well-developed in no acute distress. HEENT: No sclera icterus. Extraocular movements grossly intact. Moist buccal mucosa. Head is atraumatic, normocephalic. ABDOMEN: NG tube to LIS. Soft. Nondistended. Large vertical incision to right lower quadrant from previous open appendectomy. Surgical dressing clean dry intact. NEUROLOGIC: Alert and oriented. Cranial nerves II through XII grossly intact. ASSESSMENT: 1. Abdominal pain 2. Small bowel obstruction 3. History of open appendectomy, in 1980s PLAN: NPO except ice chips Continue NG tube to low intermittent suction Will likely DC NG tube tomorrow and start clear liquids Nurse practitioner note has been reviewed by physician. Signing provider agrees with the documented findings, assessment, and plan of care. Objective - Vital Signs Vital signs: Vital Signs Temp 98.3 F 11/01/19 13:30 Pulse 70 11/01/19 13:30 Resp 16 11/01/19 13:30 BP 109/64 11/01/19 13:30 Pulse Ox 94 L 11/01/19 13:30 Intake & Output 10/31/19 11/01/19 11/01/19 18:59 06:59 18:59 Intake Total 1450 0 Output Total 875 600 Balance 575 -600 Intake: IV 1450 Oral 0 0 Output: Urine 700 600 Oral Regurgitation 150 Estimated Blood Loss 25 Other: Voiding Method Indwelling Catheter Indwelling Catheter Indwelling Catheter # Voids 2 # Bowel Movements 0 - Labs CBC & Chem 7: 10/31/19 09:25 11/01/19 09:01 Labs: Abnormal Lab Results - Last 24 Hours (Table) 11/01/19 Range/Units 09:01 Sodium 136 L (137-145) mmol/L BUN 28 H (9-20) mg/dL Creatinine 1.43 H (0.66-1.25) mg/dL Calcium 7.9 L (8.4-10.2) mg/dL
[2019-11-01] MEDS: ROPIVACAINE 250 MG, HYDROMORPHONE (PF) 5 MG in SODIUM CHLORIDE 0.9% 200 ML EPIDURAL PRN (17:22)
--- NOTE | 2019-11-01 22:07 | P.PN ---
Progress Note - Text Progress Note Date: 11/01/19 Presenting complaint: Abdominal pain Interval history: 69-year-old patient of . Chronic stable medical conditions include COPD, hypertension, questionable history of [place] asbestos exposure. Smoker. Patient admitted with small bowel obstruction. On October Cardilate underwent lysis of conditions by Dr. Sheets. Today-NG tube remains in place. Has a spinal pain pump in place. No flatus. No nausea no vomiting. Review of systems: Was done for constitutional, cardiovascular, GI, pulmonary. relevant finding as above Active Medications Albuterol/Ipratropium (Duoneb 0.5 Mg-3 Mg/3 Ml Soln) 3 ml INHALATION RT-QID PRN PRN Reason: Shortness Of Breath Or Wheezing Last Admin: 10/30/19 21:00 Dose: 3 ml Documented by: Albuterol/Ipratropium (Duoneb 0.5 Mg-3 Mg/3 Ml Soln) 3 ml INHALATION RT-QID [facility] Last Admin: 11/01/19 19:38 Dose: 3 ml Documented by: Budesonide (Pulmicort) 0.5 mg INHALATION RT-BID [facility] Last Admin: 11/01/19 19:38 Dose: 0.5 mg Documented by: Heparin Sodium (Porcine) (Heparin) 5,000 unit SQ Q8HR [facility] Last Admin: 11/01/19 21:54 Dose: 5,000 unit Documented by: Hydromorphone HCl (Dilaudid) 1 mg IVP Q3HR PRN PRN Reason: Severe Pain Last Admin: 10/31/19 07:01 Dose: 1 mg Documented by: Piperacillin Sod/Tazobactam (Sod 3.375 gm/ Sodium Chloride) 100 mls @ 200 mls/hr IVPB Q8HR [facility] Last Admin: 11/01/19 15:15 Dose: 200 mls/hr Documented by: Sodium Chloride (Saline 0.9%) 1,000 mls @ 100 mls/hr IV .Q10H [facility] Last Admin: 11/01/19 15:16 Dose: 100 mls/hr Documented by: Ropivacaine 250 mg/Hydromorphone HCl 5 mg/ Sodium Chloride 250 mls @ 0 mls/hr EPIDURAL .Q0M PRN; Protocol PRN Reason: Pain Control Last Admin: 01/30/20 17:22 Dose: 8 mls/hr Documented by: Naloxone HCl (Narcan) 0.2 mg IV Q2M PRN PRN Reason: Opioid Reversal Nicotine (Habitrol 21mg/24hr Patch) 1 patch TRANSDERM DAILY [facility] Last Admin: 11/01/19 07:30 Dose: 1 patch Documented by: Ondansetron HCl (Zofran) 4 mg IVP Q6HR PRN PRN Reason: Nausea And Vomiting Pantoprazole Sodium (Protonix) 40 mg IV DAILY [facility] Last Admin: 11/01/19 07:29 Dose: 40 mg Documented by: On examination: VITAL SIGNS: 98.3, 70, 16, 100/64, 94% on room air GENERAL APPEARANCE: Laying in bed, awake. HEENT: Normal external appearance of nose and ear. Oral cavity normal, NG tube to suction EYES: Pupils equal. Conjunctiva normal. NECK: JVD not raised. Mass not palpable. RESPIRATORY: Respiratory effort normal. Lungs decreased breath sound CARDIOVASCULAR: First and second sounds normal. No edema. ABDOMEN: Soft. Mild tenderness, bowel sounds, sluggish Liver and spleen not palpable. Dressing over the incision site.. PSYCHIATRY: Alert and oriented x3. Mood and affect normal. INVESTIGATIONS, reviewed in the clinical context: Potassium 4.9 bun 28 creatine 1.43 Previous testing White count 6.9 hemoglobin 13 potassium 4.5 creatinine 1.25 Abdominal x-ray-some decrease in obstructive findings Assessment: -Acute small bowel obstruction, followed by lysis of adhesions -COPD in a current smoker -Chronic nicotine dependence patient cigarette smoker -Essential hypertension -Coronary artery disease prior history of [place]. -Suspect chronic kidney disease, stage II with baseline creatinine being around 1.1, in January 2019 Plan: Spinal pain pump is in place. Follow electrolytes.
[2019-11-02] MEDS: PIPERACILLIN-TAZOBACTAM 3.375 GM in SODIUM CHLORIDE 0.9% 100 ML IVPB SCH ×2 (07:06→15:55)
[2019-11-02] MEDS: PANTOPRAZOLE 40 MG/10 ML VIAL IV SCH (07:06)
[2019-11-02] MEDS: SODIUM CHLORIDE 0.9% 1,000 ML IV SCH ×2 (07:07→21:44)
[2019-11-02] MEDS: IPRATROPIUM-ALBUTEROL 3 ML NEB INHALATION SCH ×4 (07:12→19:21)
[2019-11-02] MEDS: BUDESONIDE 0.5 MG/2 ML NEBU INHALATION SCH ×2 (07:12→19:21)
--- NOTE | 2019-11-02 07:57 | P.PN ---
Progress Note - Text 11/02 709am 69-year-old male status post explore lap . Patient has an epidural catheter for postop pain control with the solution running at 8 mL an hour, patient has a VAS of 3 with no motor or sensory deficits. Plan to continue epidural infusion for another day
[2019-11-02 08:00] LABS: Potassium 4.2 mmol/L (3.5-5.1)
[2019-11-02] MEDS: HEPARIN SODIUM,PORCINE 5,000 UNIT/ML 1 ML VIAL SQ SCH ×2 (08:09→15:45)
[2019-11-02] MEDS: NICOTINE 21MG/24HR PATCH TRANSDERM SCH (08:16)
--- NOTE | 2019-11-02 10:59 | P.PN ---
Subjective Progress Note Date: 11/02/19 CHIEF COMPLAINT: Abdominal pain HISTORY OF PRESENT ILLNESS: Patient is status post exploratory lap with lysis of adhesions. Postoperative #2. Patient examined at the bedside. Epidural infusing. His pain is controlled. NG tube to low intermittent suction. Jovany masterson reports he is passing flatus. No BM. Vital signs are stable. PHYSICAL EXAM: VITAL SIGNS: Reviewed. GENERAL: Well-developed in no acute distress. HEENT: No sclera icterus. Extraocular movements grossly intact. Moist buccal mucosa. Head is atraumatic, normocephalic. ABDOMEN: NG tube to LIS. Soft. Nondistended. Large vertical incision to right lower quadrant from previous open appendectomy. Surgical dressing clean dry intact. NEUROLOGIC: Alert and oriented. Cranial nerves II through XII grossly intact. ASSESSMENT: 1. Abdominal pain 2. Small bowel obstruction, s/p exploratory laparotomy with lysis of adhesions 3. History of open appendectomy, in 1980s PLAN: Discontinue NG tube Begin clear liquid diet Pain control. Continue epidural. We will discontinue postop day #3 (tomorrow) Continue Saini catheter while epidural in place Increase activity as tolerated Incentive spirometer Nurse practitioner note has been reviewed by physician. Signing provider agrees with the documented findings, assessment, and plan of care. Objective - Vital Signs Vital signs: Vital Signs Temp 99.3 F 11/02/19 07:41 Pulse 74 11/02/19 07:41 Resp 17 11/02/19 07:41 BP 124/65 11/02/19 07:41 Pulse Ox 95 11/02/19 07:41 Intake & Output 11/01/19 11/02/19 11/02/19 18:59 06:59 18:59 Output Total 350 700 700 Balance -350 -700 -700 Output: Gastric Drainage 700 Urine 350 700 Other: Voiding Method Indwelling Catheter Indwelling Catheter Indwelling Catheter # Bowel Movements 0 - Labs CBC & Chem 7: 10/31/19 09:25 11/02/19 07:27 Labs: Abnormal Lab Results - Last 24 Hours (Table) 11/02/19 Range/Units 07:27 BUN 27 H (9-20) mg/dL Glucose 65 L (74-99) mg/dL Calcium 8.0 L (8.4-10.2) mg/dL
[2019-11-02 11:12] VITALS: BMI 25.2
[2019-11-02] MEDS: ROPIVACAINE 250 MG, HYDROMORPHONE (PF) 5 MG in SODIUM CHLORIDE 0.9% 200 ML EPIDURAL PRN (16:58)
--- NOTE | 2019-11-02 20:21 | P.PN ---
Progress Note - Text Progress Note Date: 11/02/19 Presenting complaint: Abdominal pain Interval history: 69-year-old patient of . Chronic stable medical conditions include COPD, hypertension, questionable history of [place] asbestos exposure. Smoker. Patient admitted with small bowel obstruction. On October Cardilate underwent lysis of conditions by Dr. Sheets. Today-NG tube removed this morning. Did positive flatus. Spinal pain pump in place. Has been out of bed. Review of systems: Was done for constitutional, cardiovascular, GI, pulmonary. relevant finding as above Active Medications Hydrocodone Bitart/Acetaminophen ([place] 5-325) 1 each PO Q4HR PRN PRN Reason: MODERATE Pain Albuterol/Ipratropium (Duoneb 0.5 Mg-3 Mg/3 Ml Soln) 3 ml INHALATION RT-QID PRN PRN Reason: Shortness Of Breath Or Wheezing Last Admin: 10/30/19 21:00 Dose: 3 ml Documented by: Albuterol/Ipratropium (Duoneb 0.5 Mg-3 Mg/3 Ml Soln) 3 ml INHALATION RT-QID [facility] Last Admin: 11/02/19 19:21 Dose: 3 ml Documented by: Budesonide (Pulmicort) 0.5 mg INHALATION RT-BID [facility] Last Admin: 11/02/19 19:21 Dose: 0.5 mg Documented by: Heparin Sodium (Porcine) (Heparin) 5,000 unit SQ Q8HR [facility] Last Admin: 11/02/19 15:45 Dose: 5,000 unit Documented by: Hydromorphone HCl (Dilaudid) 1 mg IVP Q3HR PRN PRN Reason: Severe Pain Last Admin: 10/31/19 07:01 Dose: 1 mg Documented by: Piperacillin Sod/Tazobactam (Sod 3.375 gm/ Sodium Chloride) 100 mls @ 200 mls/hr IVPB Q8HR [facility] Last Admin: 11/02/19 15:55 Dose: 200 mls/hr Documented by: Sodium Chloride (Saline 0.9%) 1,000 mls @ 100 mls/hr IV .Q10H [facility] Last Admin: 11/02/19 07:07 Dose: 100 mls/hr Documented by: Ropivacaine 250 mg/Hydromorphone HCl 5 mg/ Sodium Chloride 250 mls @ 0 mls/hr EPIDURAL .Q0M PRN; Protocol PRN Reason: Pain Control Last Admin: 11/02/19 16:58 Dose: 8 mls/hr Documented by: Naloxone HCl (Narcan) 0.2 mg IV Q2M PRN PRN Reason: Opioid Reversal Nicotine (Habitrol 21mg/24hr Patch) 1 patch TRANSDERM DAILY [facility] Last Admin: 11/02/19 08:16 Dose: 1 patch Documented by: Ondansetron HCl (Zofran) 4 mg IVP Q6HR PRN PRN Reason: Nausea And Vomiting Pantoprazole Sodium (Protonix) 40 mg IV DAILY [facility] Last Admin: 11/02/19 07:06 Dose: 40 mg Documented by: On examination: VITAL SIGNS: 99.3, 74, 17, 124/65, 95% room air GENERAL APPEARANCE: Sitting up, comfortable. HEENT: Normal external appearance of nose and ear. Oral cavity normal, NG tube to suction EYES: Pupils equal. Conjunctiva normal. NECK: JVD not raised. Mass not palpable. RESPIRATORY: Respiratory effort normal. Lungs decreased breath sound CARDIOVASCULAR: First and second sounds normal. No edema. ABDOMEN: Soft. Mild tenderness, bowel sounds, sluggish, Liver and spleen not palpable. Dressing over the incision site.. PSYCHIATRY: Alert and oriented x3. Mood and affect normal. INVESTIGATIONS, reviewed in the clinical context: Creatinine 1.19 Previous testing White count 6.9 hemoglobin 13 potassium 4.5 creatinine 1.25 Abdominal x-ray-some decrease in obstructive findings Assessment: -Acute small bowel obstruction, followed by lysis of adhesions -COPD in a current smoker -Chronic nicotine dependence patient cigarette smoker -Essential hypertension -Coronary artery disease prior history of [place]. -Suspect chronic kidney disease, stage II with baseline creatinine being around 1.1, in January 2019 Plan: NG tube has been discontinued. Per surgery patient is tolerating clear liquids later today. Patient to continue to ambulate. IV fluids. Thank you Dr. Sheets
[2019-11-03] MEDS: PIPERACILLIN-TAZOBACTAM 3.375 GM in SODIUM CHLORIDE 0.9% 100 ML IVPB SCH ×3 (01:22→15:31)
[2019-11-03] MEDS: HEPARIN SODIUM,PORCINE 5,000 UNIT/ML 1 ML VIAL SQ SCH ×3 (01:22→15:31)
[2019-11-03 06:56] LABS: Basophils # (A) 0.1 k/uL (0-0.2); Basophils % (A) 1 %; Eosinophils # (A) 0.5 k/uL (0-0.7); Eosinophils % (A) 7 %; HCT 37.4 % (39.0-53.0); HGB 11.8 gm/dL (13.0-17.5); Lymphocytes # (A) 0.6 k/uL (1.0-4.8); Lymphocytes % (A) 8 %; MCHC 31.6 g/dL (31.0-37.0); MCV 101.3 fL (80.0-100.0); Mean Platelet Volume 7.1; Monocytes # (A) 0.7 k/uL (0-1.0); Monocytes % (A) 9 %; Neutrophils # (A) 5.1 k/uL (1.3-7.7); Neutrophils % (A) 72 %; Platelet Count 278 k/uL (150-450); RBC 3.69 m/uL (4.30-5.90); RDW 12.9 % (11.5-15.5)
[2019-11-03 07:06] LABS: Calcium 8.1 mg/dL (8.4-10.2); Potassium 3.9 mmol/L (3.5-5.1)
[2019-11-03] MEDS: IPRATROPIUM-ALBUTEROL 3 ML NEB INHALATION SCH ×4 (07:09→19:40)
[2019-11-03] MEDS: BUDESONIDE 0.5 MG/2 ML NEBU INHALATION SCH ×2 (07:09→19:40)
[2019-11-03] MEDS: NICOTINE 21MG/24HR PATCH TRANSDERM SCH (07:44)
[2019-11-03] MEDS: PANTOPRAZOLE 40 MG/10 ML VIAL IV SCH (07:44)
[2019-11-03] MEDS: SODIUM CHLORIDE 0.9% 1,000 ML IV SCH ×2 (07:44→15:32)
--- NOTE | 2019-11-03 10:20 | P.PN ---
Progress Note - Text Progress Note Date: 11/03/19 (906) Anesthesia Postop day 3 Status post for exploratory laparotomy with epidural day for Patient seen and examined. Doing well without complaint. VAS 2 out of 10. No nausea vomiting or pruritus. Ropivacaine 0.1% with Dilaudid 20 mcg/mL at 8 mL an hour. Objective: Vital signs reviewed Lungs: Good chest excursion Abdomen: Appears nondistended Other: Epidural Site Intact without induration. Dressing intact Neuro: No apparent motor block. Sensory within normal limits. Assessment: Status post exploratory laparotomy with epidural postop day 3 Plan: Continue current care with your medical management. Anticipate to be discontinued today. Nurse aware. Order written..
--- NOTE | 2019-11-03 14:22 | P.PN ---
Subjective Progress Note Date: 11/03/19 Principal diagnosis: Small bowel obstruction Patient doing better today. He is passing flatus now. He would like more to eat. No nausea or vomiting. Objective - Vital Signs Vital signs: Vital Signs Temp 97.6 F 11/03/19 14:17 Pulse 59 L 11/03/19 14:17 Resp 16 11/03/19 14:17 BP 106/71 11/03/19 14:17 Pulse Ox 98 11/03/19 14:17 Intake & Output 11/02/19 11/03/19 11/03/19 18:59 06:59 18:59 Intake Total 188.8 740 Output Total 1020 450 500 Balance -831.2 -450 240 Weight 82.1 kg Intake: Intake, IV Titration 188.8 Amount Ropivacaine 250 mg 188.8 Hydromorphone (Pf) 5 mg In Sodium Chloride 0.9% 200 ml @ Per Protocol EPIDURAL .Q0M PRN Rx#: [id number] Oral 740 Output: Gastric Drainage 700 Urine 320 450 500 Uretheral (Saini) 100 Other: Voiding Method Indwelling Catheter Indwelling Catheter Indwelling Catheter # Bowel Movements 0 - Exam Abdomen: Soft, nondistended, incision clean and dry, dressing intact - Labs CBC & Chem 7: 11/03/19 06:05 11/03/19 06:05 Labs: Abnormal Lab Results - Last 24 Hours (Table) 11/03/19 11/03/19 Range/Units 06:05 06:05 RBC 3.69 L (4.30-5.90) m/uL Hgb 11.8 L (13.0-17.5) gm/dL Hct 37.4 L (39.0-53.0) % MCV 101.3 H (80.0-100.0) fL Lymphocytes # 0.6 L (1.0-4.8) k/uL Sodium 135 L (137-145) mmol/L Glucose 71 L (74-99) mg/dL Calcium 8.1 L (8.4-10.2) mg/dL Assessment and Plan (1) Small bowel obstruction Narrative/Plan: Patient doing better. We'll advance to full liquids. Plan epidural and Saini catheter removal. Current Visit: Yes Status: Acute Code(s): K56.609 - UNSP INTESTNL OBST, UNSP TO PARTIAL VERSUS COMPLETE OBST SNOMED Code(s): 247629293
[2019-11-03] MEDS: HYDROmorphone 1 MG/ML 1 ML SYRINGE IVP PRN (19:28)
--- NOTE | 2019-11-03 19:37 | P.PN ---
Progress Note - Text Progress Note Date: 11/03/19 Presenting complaint: Abdominal pain Interval history: 69-year-old patient of . Chronic stable medical conditions include COPD, hypertension, questionable history of [place] asbestos exposure. Smoker. Patient admitted with small bowel obstruction. On October 31 underwent lysis of adhesions by Dr. Sheets. Today-spinal pain pump still present this morning. Has positive flatus. No bowel movement. Has been out of bed. Review of systems: Was done for constitutional, cardiovascular, GI, pulmonary. relevant finding as above Active Medications Hydrocodone Bitart/Acetaminophen ([place] 5-325) 1 each PO Q4HR PRN PRN Reason: MODERATE Pain Albuterol/Ipratropium (Duoneb 0.5 Mg-3 Mg/3 Ml Soln) 3 ml INHALATION RT-QID PRN PRN Reason: Shortness Of Breath Or Wheezing Last Admin: 10/30/19 21:00 Dose: 3 ml Documented by: Albuterol/Ipratropium (Duoneb 0.5 Mg-3 Mg/3 Ml Soln) 3 ml INHALATION RT-QID [facility] Last Admin: 11/03/19 15:35 Dose: 3 ml Documented by: Budesonide (Pulmicort) 0.5 mg INHALATION RT-BID [facility] Last Admin: 11/03/19 07:09 Dose: 0.5 mg Documented by: Heparin Sodium (Porcine) (Heparin) 5,000 unit SQ Q8HR [facility] Last Admin: 11/03/19 15:31 Dose: 5,000 unit Documented by: Hydromorphone HCl (Dilaudid) 1 mg IVP Q3HR PRN PRN Reason: Severe Pain Last Admin: 11/03/19 19:28 Dose: 1 mg Documented by: Piperacillin Sod/Tazobactam (Sod 3.375 gm/ Sodium Chloride) 100 mls @ 200 mls/hr IVPB Q8HR [facility] Last Admin: 11/03/19 15:31 Dose: 200 mls/hr Documented by: Sodium Chloride (Saline 0.9%) 1,000 mls @ 100 mls/hr IV .Q10H [facility] Last Admin: 11/03/19 15:32 Dose: 100 mls/hr Documented by: Naloxone HCl (Narcan) 0.2 mg IV Q2M PRN PRN Reason: Opioid Reversal Nicotine (Habitrol 21mg/24hr Patch) 1 patch TRANSDERM DAILY [facility] Last Admin: 11/03/19 07:44 Dose: 1 patch Documented by: Ondansetron HCl (Zofran) 4 mg IVP Q6HR PRN PRN Reason: Nausea And Vomiting Pantoprazole Sodium (Protonix) 40 mg IV DAILY [facility] Last Admin: 11/03/19 07:44 Dose: 40 mg Documented by: On examination: VITAL SIGNS: 97.8, 69, 18, 122/79, 97% room air GENERAL APPEARANCE: Sitting up, comfortable. HEENT: Normal external appearance of nose and ear. Oral cavity normal, NG tube to suction EYES: Pupils equal. Conjunctiva normal. NECK: JVD not raised. Mass not palpable. RESPIRATORY: Respiratory effort normal. Lungs decreased breath sound CARDIOVASCULAR: First and second sounds normal. No edema. ABDOMEN: Soft. Minimal tenderness, bowel sounds, sluggish, Liver and spleen not palpable. Dressing over the incision site.. PSYCHIATRY: Alert and oriented x3. Mood and affect normal. INVESTIGATIONS, reviewed in the clinical context: Creatinine 1.19 Previous testing White count 6.9 hemoglobin 13 potassium 4.5 creatinine 1.25 Abdominal x-ray-some decrease in obstructive findings Assessment: -Acute small bowel obstruction, followed by lysis of adhesions -COPD in a current smoker -Chronic nicotine dependence patient cigarette smoker -Essential hypertension -Coronary artery disease prior history of [place]. -Suspect chronic kidney disease, stage II with baseline creatinine being around 1.1, in January 2019 Plan: Hoping this afternoon spinal pump will be removed. Told the nurse to give patient chewing gum. Continue to ambulate. Thank you Dr. Sheets
[2019-11-03] MEDS: HYDROcodone/APAP 5-325MG 1 EACH TAB PO PRN (21:33)
[2019-11-04] MEDS: HEPARIN SODIUM,PORCINE 5,000 UNIT/ML 1 ML VIAL SQ SCH ×4 (00:37→23:55)
[2019-11-04] MEDS: PIPERACILLIN-TAZOBACTAM 3.375 GM in SODIUM CHLORIDE 0.9% 100 ML IVPB SCH ×4 (00:37→23:54)
[2019-11-04] MEDS: SODIUM CHLORIDE 0.9% 1,000 ML IV SCH ×2 (06:08→12:37)
[2019-11-04] MEDS: HYDROcodone/APAP 5-325MG 1 EACH TAB PO PRN (06:08)
[2019-11-04] MEDS: IPRATROPIUM-ALBUTEROL 3 ML NEB INHALATION SCH ×4 (07:15→20:16)
[2019-11-04] MEDS: BUDESONIDE 0.5 MG/2 ML NEBU INHALATION SCH ×2 (07:15→20:16)
[2019-11-04] MEDS: PANTOPRAZOLE 40 MG/10 ML VIAL IV SCH (07:38)
[2019-11-04] MEDS: NICOTINE 21MG/24HR PATCH TRANSDERM SCH (07:39)
--- NOTE | 2019-11-04 10:41 | P.PN ---
Subjective Progress Note Date: 11/04/19 Principal diagnosis: Small bowel obstruction Patient doing well today. He did have a bowel movement. Denies nausea or vomiting. Tolerating full liquids. Pain is well-controlled. Objective - Vital Signs Vital signs: Vital Signs Temp 97.8 F 11/04/19 05:51 Pulse 65 11/04/19 05:51 Resp 12 11/04/19 05:51 BP 132/76 11/04/19 05:51 Pulse Ox 97 11/04/19 05:51 Intake & Output 11/03/19 11/04/19 11/04/19 18:59 06:59 18:59 Intake Total 1780 120 Output Total 900 Balance 880 120 Intake: Oral 1780 120 Output: Urine 900 Uretheral (Saini) 100 Stool 0 Other: Voiding Method Indwelling Catheter Toilet # Voids 4 # Bowel Movements 1 - Exam Abdomen: Soft, nondistended, dressing clean and dry - Labs CBC & Chem 7: 11/03/19 06:05 11/03/19 06:05 Assessment and Plan (1) Small bowel obstruction Narrative/Plan: Will advance diet to low fiber. Increase activity. Possible discharge tomorrow. Current Visit: Yes Status: Acute Code(s): K56.609 - UNSP INTESTNL OBST, UNSP TO PARTIAL VERSUS COMPLETE OBST SNOMED Code(s): 456640146
--- NOTE | 2019-11-04 23:03 | P.PN ---
Progress Note - Text Progress Note Date: 11/04/19 Presenting complaint: Abdominal pain Interval history: 69-year-old patient of . Chronic stable medical conditions include COPD, hypertension, questionable history of [place] exposure. Smoker. Patient admitted with small bowel obstruction. On October 31 underwent lysis of adhesions by Dr. Sheets. Today-doing much better. On regular diet. Had bowel movement. No abdominal pain. No nausea vomiting. Has been out of bed. Review of systems: Was done for constitutional, cardiovascular, GI, pulmonary. relevant finding as above Active Medications Hydrocodone Bitart/Acetaminophen ([place] 5-325) 1 each PO Q4HR PRN PRN Reason: MODERATE Pain Last Admin: 11/04/19 06:08 Dose: 1 each Documented by: Albuterol/Ipratropium (Duoneb 0.5 Mg-3 Mg/3 Ml Soln) 3 ml INHALATION RT-QID PRN PRN Reason: Shortness Of Breath Or Wheezing Last Admin: 10/30/19 21:00 Dose: 3 ml Documented by: Albuterol/Ipratropium (Duoneb 0.5 Mg-3 Mg/3 Ml Soln) 3 ml INHALATION RT-QID [facility] Last Admin: 11/04/19 20:16 Dose: 3 ml Documented by: Budesonide (Pulmicort) 0.5 mg INHALATION RT-BID [facility] Last Admin: 11/04/19 20:16 Dose: 0.5 mg Documented by: Heparin Sodium (Porcine) (Heparin) 5,000 unit SQ Q8HR [facility] Last Admin: 11/04/19 16:10 Dose: 5,000 unit Documented by: Hydromorphone HCl (Dilaudid) 1 mg IVP Q3HR PRN PRN Reason: Severe Pain Last Admin: 11/03/19 19:28 Dose: 1 mg Documented by: Piperacillin Sod/Tazobactam (Sod 3.375 gm/ Sodium Chloride) 100 mls @ 200 mls/hr IVPB Q8HR [facility] Last Admin: 11/04/19 16:09 Dose: 200 mls/hr Documented by: Sodium Chloride (Saline 0.9%) 1,000 mls @ 100 mls/hr IV .Q10H [facility] Last Admin: 11/04/19 12:37 Dose: 100 mls/hr Documented by: Naloxone HCl (Narcan) 0.2 mg IV Q2M PRN PRN Reason: Opioid Reversal Nicotine (Habitrol 21mg/24hr Patch) 1 patch TRANSDERM DAILY [facility] Last Admin: 11/04/19 07:39 Dose: 1 patch Documented by: Ondansetron HCl (Zofran) 4 mg IVP Q6HR PRN PRN Reason: Nausea And Vomiting Pantoprazole Sodium (Protonix) 40 mg IV DAILY [facility] Last Admin: 11/04/19 07:38 Dose: 40 mg Documented by: On examination: VITAL SIGNS: 97.9-70-17-148/82-100% on room air GENERAL APPEARANCE: labor-, comfortable. HEENT: Normal external appearance of nose and ear. Oral cavity normal, NG tube to suction EYES: Pupils equal. Conjunctiva normal. NECK: JVD not raised. Mass not palpable. RESPIRATORY: Respiratory effort normal. Lungs decreased breath sound CARDIOVASCULAR: First and second sounds normal. No edema. ABDOMEN: Soft. non- tenderness, bowel sounds, -present, Liver and spleen not palpable. Dressing over the incision site.. PSYCHIATRY: Alert and oriented x3. Mood and affect normal. INVESTIGATIONS, reviewed in the clinical context: white count 7 hemoglobin 11.8 potassium 3.9 creatinine 1.06 Previous testing White count 6.9 hemoglobin 13 potassium 4.5 creatinine 1.25 Abdominal x-ray-some decrease in obstructive findings Assessment: -Acute small bowel obstruction, followed by lysis of adhesions -COPD in a current smoker -Anemia suspected secondary to chronic kidney disease -Chronic nicotine dependence patient cigarette smoker -Essential hypertension -Coronary artery disease prior history of [place]. -Suspect chronic kidney disease, stage II with baseline creatinine being around 1.1, in January 2019 Plan: Hx of anemia parameters including B12. And iron studies. Otherwise patient is medically stable Thank you Dr. Sheets
[2019-11-05] MEDS: SODIUM CHLORIDE 0.9% 1,000 ML IV SCH ×2 (00:04→07:20)
[2019-11-05] MEDS: HYDROcodone/APAP 5-325MG 1 EACH TAB PO PRN ×2 (04:57→11:05)
[2019-11-05 05:13] VITALS: BP 156/74; TEMP 97.7
[2019-11-05] MEDS: PIPERACILLIN-TAZOBACTAM 3.375 GM in SODIUM CHLORIDE 0.9% 100 ML IVPB SCH (07:19)
[2019-11-05] MEDS: NICOTINE 21MG/24HR PATCH TRANSDERM SCH (07:20)
[2019-11-05] MEDS: PANTOPRAZOLE 40 MG/10 ML VIAL IV SCH (07:20)
[2019-11-05] MEDS: HEPARIN SODIUM,PORCINE 5,000 UNIT/ML 1 ML VIAL SQ SCH (07:20)
[2019-11-05] MEDS: IPRATROPIUM-ALBUTEROL 3 ML NEB INHALATION SCH ×2 (07:43→11:16)
[2019-11-05] MEDS: BUDESONIDE 0.5 MG/2 ML NEBU INHALATION SCH (07:43)
[2019-11-05 07:46] VITALS: RESP 18
[2019-11-05 07:59] VITALS: PULSE 68
--- NOTE | 2019-11-05 10:21 | P.DS ---
Providers Date of admission: 10/30/19 13:21 Expected date of discharge: 11/05/19 Attending physician: Rigoberto Sheets Consults: 10/30/19 13:22 Consult Physician Routine Consulting Provider: Scooter Hartmann Consult Reason/Comments: Small bowel obstruction, medical management Do you want consulting provider notified?: Yes Primary care physician: Vasquez Alicea Hospital Course: 69-year-old male who presented to the emergency room with the chief complaint of abdominal pain. Patient was found to have a small bowel obstruction. Patient underwent exploratory laparotomy with lysis of adhesions. Patient is doing well postoperatively without any immediate complications. He is tolerating diet without nausea or vomiting. Passing flatus and having bowel movements. Pain is controlled on oral medications. Vital signs are stable. He is stable for discharge home today. Please see EMR for further hospital course details. Discharge Diagnosis: 1. Abdominal pain 2. Small bowel obstruction 3. History of open appendectomy, in 1980s Nurse practitioner note has been reviewed by physician. Signing provider agrees with the documented findings, assessment, and plan of care. Patient Condition at Discharge: Stable Plan - Discharge Summary Discharge Rx Participant: No New Discharge Prescriptions: New Hydrocodone/Acetaminophen [[place] 5-325] 1 tab PO Q6HR PRN #10 tab PRN Reason: Pain No Action Budesonide-Formot 160-4.5 Mcg [Symbicort 160-4.5 Mcg Inhaler] 2 puff INHALATION RT-BID Atorvastatin [Lipitor] 40 mg PO DAILY #30 tab Carvedilol [Coreg] 6.25 mg PO BID-W/MEALS #60 tab Isosorbide Mononitrate ER [Imdur] 30 mg PO DAILY #30 tab.er.24h Irbesartan/Hydrochlorothiazide [Irbesartan-Hctz 300-12.5 mg Tb] 1 tab PO DAILY Umeclidinium [place] [Incruse Ellipta] 1 puff INHALATION RT-DAILY Discharge Medication List Budesonide-Formot 160-4.5 Mcg [Symbicort 160-4.5 Mcg Inhaler] 2 puff INHALATION RT-BID 05/16/15 [History] Atorvastatin [Lipitor] 40 mg PO DAILY #30 tab 03/24/18 [Rx] Carvedilol [Coreg] 6.25 mg PO BID-W/MEALS #60 tab 03/24/18 [Rx] Isosorbide Mononitrate ER [Imdur] 30 mg PO DAILY #30 tab.er.24h 03/24/18 [Rx] Irbesartan/Hydrochlorothiazide [Irbesartan-Hctz 300-12.5 mg Tb] 1 tab PO DAILY 10/30/19 [History] Umeclidinium [place] [Incruse Ellipta] 1 puff INHALATION RT-DAILY 10/30/19 [History] Hydrocodone/Acetaminophen [[place] 5-325] 1 tab PO Q6HR PRN #10 tab 11/02/19 [Rx] Follow up Appointment(s)/Referral(s): Vasquez Alicea MD [Primary Care Provider] - 1-2 days Rigoberto Sheets MD [STAFF PHYSICIAN] - 1 Week Activity/Diet/Wound Care/Special Instructions: No driving while taking [place] No lifting over 10 pounds You may shower. No soaking or tub baths Very light activity until you are reevaluated at your follow up appointment with your surgeon
[2019-11-05 17:27] LABS: Ferritin 282.1 ng/mL (22.0-322.0)
[2019-11-05 17:40] LABS: % Iron Saturation 9.43 (15.00-50.00)
--- NOTE | 2019-11-05 22:13 | P.PN ---
Progress Note - Text Progress Note Date: 11/05/19 Presenting complaint: Abdominal pain Interval history: 69-year-old patient of . Chronic stable medical conditions include COPD, hypertension, questionable history of [place] asbestos exposure. Smoker. Patient admitted with small bowel obstruction. On October 31 underwent lysis of adhesions by Dr. Sheets. Today-tolerating regular diet. Had a bowel movement. No abdominal pain. No fever no chills. No nausea vomiting. Up and about. Review of systems: Was done for constitutional, cardiovascular, GI, pulmonary. relevant finding as above Current medications reviewed in today's electronic records On examination: VITAL SIGNS: 97.7, 70, 20, 156/74, 97% on room air GENERAL APPEARANCE: Sitting up, comfortable. HEENT: Normal external appearance of nose and ear. Oral cavity normal, NG tube to suction EYES: Pupils equal. Conjunctiva normal. NECK: JVD not raised. Mass not palpable. RESPIRATORY: Respiratory effort normal. Lungs decreased breath sound CARDIOVASCULAR: First and second sounds normal. No edema. ABDOMEN: Soft. Nontender, bowel sounds, -present, Liver and spleen not palpable. Dressing over the incision site.. PSYCHIATRY: Alert and oriented x3. Mood and affect normal. INVESTIGATIONS, reviewed in the clinical context: white count 7 hemoglobin 11.8 potassium 3.9 creatinine 1.06 Previous testing White count 6.9 hemoglobin 13 potassium 4.5 creatinine 1.25 Abdominal x-ray-some decrease in obstructive findings Iron 20 TIBC 212 ferritin 282 B12 402 Assessment: -Acute small bowel obstruction, followed by lysis of adhesions -COPD in a current smoker -Anemia suspected secondary to chronic kidney disease -Iron deficiency anemia, for further workup as an outpatient -Chronic nicotine dependence patient cigarette smoker -Essential hypertension -Coronary artery disease prior history of [place]. -Suspect chronic kidney disease, stage II with baseline creatinine being around 1.1, in January 2019 Plan: Stable. Doing well. If discharged to follow-up with PCP. Thank you Dr. Sheets
== END 2019-11-05 11:47 | disposition home or self-care (01) | DRG 336 ==
LOC: EC 09:40 → 6NMEDSUR 13:21
PROVIDERS: ADMIT Surgery; ATTEND Surgery
PROC: 0DN80ZZ Release Small Intestine, Open Approach (ICD-10-PCS; principal; 2019-10-31 11:35)
DX: K56.50 Intestinal adhesions [bands], unspecified as to partial versus complete obstruction (principal); N17.9 Acute kidney failure, unspecified; E87.1 Hypo-osmolality and hyponatremia; J44.9 Chronic obstructive pulmonary disease, unspecified; E87.5 Hyperkalemia; I12.9 Hypertensive chronic kidney disease with stage 1 through stage 4 chronic kidney disease, or unspecified chronic kidney disease; N18.2 Chronic kidney disease, stage 2 (mild); D63.1 Anemia in chronic kidney disease; F17.210 Nicotine dependence, cigarettes, uncomplicated; E86.0 Dehydration; I25.10 Atherosclerotic heart disease of native coronary artery without angina pectoris; I25.2 Old myocardial infarction; Z79.51 Long term (current) use of inhaled steroids; Z79.899 Other long term (current) drug therapy; Z82.49 Family history of ischemic heart disease and other diseases of the circulatory system; Z90.49 Acquired absence of other specified parts of digestive tract; Z87.01 Personal history of pneumonia (recurrent)
CPT/HCPCS: 36415; 74019; 74177; 80048; 80053; 81003; 82150; 82550; 82607; 82728; 83540; 83550; 83605; 83690; 84484; 85025; 93005; 94640; 94760; 96361; 96365; 96366; 96375; 99285

== ENCOUNTER 2019-11-21 12:56 | Inpatient (IN) | payer BC, MEDICARE ==
[2019-11-21] MEDS ORDERED: SODIUM CHLORIDE 0.9% 500 ML 500 ML IV STA (13:06)
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
[2019-11-21 13:49] LABS: Ionized Calcium 4.7 mg/dL (4.5-5.3)
[2019-11-21 13:51] LABS: Partial Thromboplastin Time 22.8 sec (22.0-30.0); Prothrombin Time 10.3 sec (9.0-12.0)
[2019-11-21 13:59] LABS: Calcium 8.3 mg/dL (8.4-10.2); Magnesium 2.2 mg/dL (1.6-2.3); Potassium 4.4 mmol/L (3.5-5.1); Total Bilirubin 0.4 mg/dL (0.2-1.3); Total Protein 5.4 g/dL (6.3-8.2)
[2019-11-21 14:01] LABS: Basophils % (A) 1 %; Eosinophils # (A) 0.3 k/uL (0-0.7); Eosinophils % (A) 5 %; HCT 27.4 % (39.0-53.0); Lymphocytes # (A) 0.9 k/uL (1.0-4.8); Lymphocytes % (A) 17 %; MCH 32.3 pg (25.0-35.0); MCHC 33.7 g/dL (31.0-37.0); Mean Platelet Volume 7.2; Monocytes # (A) 0.3 k/uL (0-1.0); Monocytes % (A) 7 %; Neutrophils # (A) 3.5 k/uL (1.3-7.7); Neutrophils % (A) 68 %; Platelet Count 309 k/uL (150-450); RBC 2.86 m/uL (4.30-5.90); RDW 12.9 % (11.5-15.5); WBC 5.1 k/uL (3.8-10.6)
--- NOTE | 2019-11-21 14:07 | XR ---
EXAMINATION TYPE: XR chest 2V DATE OF EXAM: 11/21/2019 COMPARISON: 10/30/2019 HISTORY: 69-year-old male with hypotension, dizziness, weakness TECHNIQUE: AP and lateral views FINDINGS: Heart upper limits of normal in size. Bilateral calcified pleural plaques are redemonstrated. Mild hy perinflation with flattening of hemidiaphragms. No consolidation or pleural effusion. 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 No acute change.
[2019-11-21 14:15] LABS: HGB 9.2 gm/dL (13.0-17.5); MCV 95.9 fL (80.0-100.0)
[2019-11-21] MEDS ORDERED: SODIUM CHLORIDE 0.9% 500 ML 500 ML IV ONE (14:19)
[2019-11-21] MEDS ORDERED: SODIUM CHLORIDE 0.9% 1,000 ML IV SCH (14:30)
[2019-11-21] MEDS ORDERED: NALOXONE 0.4 MG/ML 1 ML VIAL IV PRN (14:42)
[2019-11-21 20:05] LABS: Appearance,Urine Clear (Clear); Bilirubin,Urine Negative (Negative); Blood,Urine Negative (Negative); Color,Urine Yellow; Glucose,Urine (UA) Negative (Negative); Ketones,Urine Negative (Negative); Leukocyte Esterase,Urine Negative (Negative); Nitrite,Urine Negative (Negative); Protein,Urine Negative (Negative); Specific Gravity,Urine 1.005 (1.001-1.035); Urobilinogen,Urine 0.2 mg/dL (<2.0)
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
[2019-11-21] MEDS: ATORVASTATIN 40 MG TAB PO SCH (21:29)
[2019-11-21] MEDS: NICOTINE 21MG/24HR PATCH TRANSDERM SCH (21:29)
[2019-11-21] MEDS: ENOXAPARIN 40 MG/0.4 ML SYRINGE SQ SCH (21:29)
[2019-11-21] MEDS: SODIUM CHLORIDE 0.9% 1,000 ML IV SCH (21:31)
[2019-11-21] MEDS ORDERED: IPRATROPIUM-ALBUTEROL 3 ML NEB INHALATION SCH (22:00)
[2019-11-22 03:03] LABS: Basophils % (A) 1 %; Eosinophils # (A) 0.3 k/uL (0-0.7); Eosinophils % (A) 6 %; HCT 25.7 % (39.0-53.0); HGB 8.8 gm/dL (13.0-17.5); Lymphocytes # (A) 0.9 k/uL (1.0-4.8); Lymphocytes % (A) 16 %; MCH 33.1 pg (25.0-35.0); MCHC 34.3 g/dL (31.0-37.0); MCV 96.6 fL (80.0-100.0); Mean Platelet Volume 7.3; Monocytes # (A) 0.5 k/uL (0-1.0); Monocytes % (A) 9 %; Neutrophils # (A) 3.5 k/uL (1.3-7.7); Neutrophils % (A) 65 %; Platelet Count 271 k/uL (150-450); RBC 2.67 m/uL (4.30-5.90); RDW 12.9 % (11.5-15.5); WBC 5.3 k/uL (3.8-10.6)
[2019-11-22 03:12] LABS: Albumin 2.8 g/dL (3.5-5.0); Calcium 8.1 mg/dL (8.4-10.2); Magnesium 2.2 mg/dL (1.6-2.3); Potassium 4.2 mmol/L (3.5-5.1); Total Bilirubin 0.4 mg/dL (0.2-1.3)
[2019-11-22] MEDS: SYMBICORT 160-4.5 MCG INHALER INHALATION SCH ×3 (03:28→20:34)
[2019-11-22] MEDS: ACETAMINOPHEN TAB 325 MG TAB PO PRN ×2 (03:28→09:04)
[2019-11-22] MEDS: HYDROcodone/APAP 5-325MG 1 EACH TAB PO PRN ×2 (05:21→15:15)
[2019-11-22] MEDS: SODIUM CHLORIDE 0.9% 1,000 ML IV SCH ×2 (05:23→18:51)
[2019-11-22] MEDS: IPRATROPIUM 0.5 MG/2.5 ML NEBU INHALATION SCH ×4 (08:29→20:34)
[2019-11-22] MEDS: ISOSORBIDE MONONITRATE ER 30 MG TAB.ER.24H PO SCH (09:04)
[2019-11-22] MEDS: NICOTINE 21MG/24HR PATCH TRANSDERM SCH (09:06)
[2019-11-22 12:37] VITALS: RESP 18
--- NOTE | 2019-11-22 16:23 | P.PN ---
Progress Note - Text Progress Note Date: 11/22/19 Chief Complaint: Weak tired falls History of presenting complaint: This is a very pleasant [address] Alicea. Chronic stable medical conditions include COPD, smoker, anemia of chronic kidney disease, iron deficiency anemia, nicotine dependence, essential hypertension, coronary artery disease with prior history of [place]. Patient early this month was in the hospital under care of Dr. Sheets with bowel obstruction did undergo lysis of adhesions. For about 2 weeks patient progressively has been feeling more weak lightheaded dizzy. Evidence of been okay just feeling tired and rundown. No fever no chills. No change in bowel or urine pattern. In the ER was found to be having a blood pressure of less than 90 systolic and heart rate of 50s. Also found to be in acute renal failure. Patient started and IV fluids. No chest pain no palpitation. Patient has continued to smoke. Admitted with-hypotension, acute kidney injury with ATN and bradycardia from beta stefan. Antihypertensive including beta stefan were held. Started on IV fluids. Today-feeling better. Appetite picking up. No nausea vomiting. Review of systems: Was done for constitutional, cardiovascular, GI, pulmonary. relevant finding as above Active Medications Acetaminophen (Tylenol Tab) 650 mg PO Q6HR PRN PRN Reason: Mild Pain or Fever > 100.5 Last Admin: 11/22/19 09:04 Dose: 650 mg Documented by: Hydrocodone Bitart/Acetaminophen ([place] 5-325) 1 each PO Q6HR PRN PRN Reason: Pain Last Admin: 11/22/19 15:15 Dose: 1 each Documented by: Atorvastatin Calcium (Lipitor) 40 mg PO HS [facility] Last Admin: 11/21/19 21:29 Dose: 40 mg Documented by: Budesonide/Formoterol Fumarate (Symbicort 160-4.5 Mcg Inhaler) 2 puff INHALATION RT-BID [facility] Last Admin: 11/22/19 08:29 Dose: 2 puff Documented by: Enoxaparin Sodium (Lovenox) 40 mg SQ DAILY@2100 [facility] Last Admin: 11/21/19 21:29 Dose: 40 mg Documented by: Sodium Chloride (Saline 0.9%) 1,000 mls @ 125 mls/hr IV .Q8H [facility] Last Admin: 11/22/19 05:23 Dose: 125 mls/hr Documented by: Ipratropium [place] (Atrovent Nebulized) 0.5 mg INHALATION RT-QID [facility] Last Admin: 11/22/19 11:44 Dose: 0.5 mg Documented by: Isosorbide Mononitrate (Imdur) 30 mg PO DAILY [facility] Last Admin: 11/22/19 09:04 Dose: 30 mg Documented by: Naloxone HCl (Narcan) 0.2 mg IV Q2M PRN PRN Reason: Opioid Reversal Nicotine (Habitrol 21mg/24hr Patch) 1 patch TRANSDERM DAILY [facility] Last Admin: 11/22/19 09:06 Dose: 1 patch Documented by: Physical examination: VITAL SIGNS: 97.3, 56, 16, 11 6/57, 39% room air GENERAL: Sitting up in bed, awake EYES: Pupils equal. Conjunctiva normal. HEENT: External appearance of nose and ears normal, oral cavity grossly normal. NECK: JVD not raised; masses not palpable. HEART: First and second heart sounds are normal; no edema. LUNGS: Respiratory rate normal; decreased breath sounds. ABDOMEN: Soft, nontender, liver spleen not palpable, no masses palpable. PSYCH: Alert and oriented x3; mood and affect normal. INVESTIGATIONS, reviewed in the clinical context: White count 5.3 hemoglobin 8.8 sodium 128 potassium 4.2 bun 46 creatinine 1.45 Previous testing White count 5.1 hemoglobin 9.2 platelets 309 sodium 127 potassium 4.4 bun 6621.97 Patient labs from November 03-bun 20 creatinine 1.06 Troponin I 0.043, 0.04 to Albumin 3 TSH is 0.436 EKG tracing personally reviewed by me-sinus bradycardia rate of 50 Chest x-ray film personally reviewed by me-possibly chronic changes, related to possibly asbestos Assessment: -Symptomatic hypotension from being on antihypertensive and acute renal failure -Hyponatremia, likely hyperosmolar -Acute kidney injury could be ATN and prerenal -Emphysema and a current cigarette smoker -Asbestosis -Bradycardia from beta stefan -Troponin leak from hemodynamic mismatch. Not in acute coronary syndrome -Sick euthyroid syndrome. No need to treat the abnormal TSH. -Chronic nicotine dependence patient's cigarette smoker Plan: Continue with IV fluids. Repeat labs in the morning. Care was discussed with the patient. Check serum osmolarity.
[2019-11-22] MEDS: ENOXAPARIN 40 MG/0.4 ML SYRINGE SQ SCH (20:20)
[2019-11-22] MEDS: ATORVASTATIN 40 MG TAB PO SCH (20:21)
[2019-11-23] MEDS: HYDROcodone/APAP 5-325MG 1 EACH TAB PO PRN ×2 (04:31→09:54)
[2019-11-23] MEDS: SODIUM CHLORIDE 0.9% 1,000 ML IV SCH ×3 (06:21→10:30)
[2019-11-23 06:43] LABS: Calcium 8.1 mg/dL (8.4-10.2); Potassium 4.4 mmol/L (3.5-5.1)
[2019-11-23] MEDS: IPRATROPIUM 0.5 MG/2.5 ML NEBU INHALATION SCH ×2 (07:57→11:42)
[2019-11-23] MEDS: SYMBICORT 160-4.5 MCG INHALER INHALATION SCH (07:57)
[2019-11-23] MEDS: ISOSORBIDE MONONITRATE ER 30 MG TAB.ER.24H PO SCH (09:54)
[2019-11-23] MEDS: NICOTINE 21MG/24HR PATCH TRANSDERM SCH (09:57)
[2019-11-23 11:28] VITALS: BP 118/55; PULSE 55; TEMP 97.2
--- NOTE | 2019-11-23 19:43 | P.DS ---
Providers Date of admission: 11/21/19 14:42 Expected date of discharge: 11/23/19 Attending physician: Aditya Wells Primary care physician: Vasquez Alicea [facility] Course: Chief Complaint: Weak tired falls History of presenting complaint: This is a very pleasant [address] Alicea. Chronic stable medical conditions include COPD, smoker, anemia of chronic kidney disease, iron deficiency anemia, nicotine dependence, essential hypertension, coronary artery disease with prior history of AR. Patient early this month was in the hospital under care of Dr. Sheets with bowel obstruction did undergo lysis of adhesions. For about 2 weeks patient progressively has been feeling more weak lightheaded dizzy. Evidence of been okay just feeling tired and rundown. No fever no chills. No change in bowel or urine pattern. In the ER was found to be having a blood pressure of less than 90 systolic and heart rate of 50s. Also found to be in acute renal failure. Patient started and IV fluids. No chest pain no palpitation. Patient has continued to smoke. Admitted with-hypotension, acute kidney injury with ATN and bradycardia from beta stefan. Antihypertensive including beta stefan were held. Started on IV fluids. Patient's BUN/creatinine on admission was 66/1.97. Today down to 21/1.07 Today-feeling back to his normal self. Up and about. Cane to go home. Physical examination: VITAL SIGNS: 97.2, 55, 18, 11 8/55, 100% on room air GENERAL: Sitting up, comfortable EYES: Pupils equal. Conjunctiva normal. HEENT: External appearance of nose and ears normal, oral cavity grossly normal. NECK: JVD not raised; masses not palpable. HEART: First and second heart sounds are normal; no edema. LUNGS: Respiratory rate normal; decreased breath sounds. ABDOMEN: Soft, nontender, liver spleen not palpable, no masses palpable. PSYCH: Alert and oriented x3; mood and affect normal. INVESTIGATIONS, reviewed in the clinical context: Potassium 4.4 bun 21 creatinine 1.07 Previous testing White count 5.1 hemoglobin 9.2 platelets 309 sodium 127 potassium 4.4 bun 66 creatinine-1.97 Patient labs from November 03-bun 20 creatinine 1.06 Troponin I 0.043, 0.04 to Albumin 3 TSH is 0.436 EKG tracing personally reviewed by sc-sinus bradycardia rate of 50 Chest x-ray film personally reviewed by me-possibly chronic changes, related to possibly asbestos Assessment: -Symptomatic hypotension from being on antihypertensive and acute renal failure, POA -Hyponatremia, normal osmolar -Acute kidney injury could be ATN and prerenal, POA -Emphysema and a current cigarette smoker -Asbestosis -Bradycardia from beta stefan -Troponin leak from hemodynamic mismatch. Not in acute coronary syndrome -Sick euthyroid syndrome. No need to treat the abnormal TSH. -Chronic nicotine dependence patient's cigarette smoker Disposition: Home Patient Condition at Discharge: Stable Plan - Discharge Summary Discharge Rx Participant: No New Discharge Prescriptions: New Nicotine 21Mg/24Hr Patch [Habitrol] 1 patch TRANSDERM DAILY #14 patch Continue Budesonide-Formot 160-4.5 Mcg [Symbicort 160-4.5 Mcg Inhaler] 2 puff INHALATION RT-BID Isosorbide Mononitrate ER [Imdur] 30 mg PO DAILY #30 tab.er.24h Umeclidinium [place] [Incruse Ellipta] 1 puff INHALATION RT-DAILY Hydrocodone/Acetaminophen [[place] 5-325] 1 tab PO Q6HR PRN #10 tab PRN Reason: Pain Atorvastatin [Lipitor] 40 mg PO HS Changed Carvedilol [Coreg] 3.125 mg PO BID-W/MEALS #60 tab Discontinued Irbesartan/Hydrochlorothiazide [Irbesartan-Hctz 300-12.5 mg Tb] 1 tab PO DAILY Discharge Medication List Budesonide-Formot 160-4.5 Mcg [Symbicort 160-4.5 Mcg Inhaler] 2 puff INHALATION RT-BID 05/16/15 [History] Isosorbide Mononitrate ER [Imdur] 30 mg PO DAILY #30 tab.er.24h 03/24/18 [Rx] Umeclidinium [place] [Incruse Ellipta] 1 puff INHALATION RT-DAILY 10/30/19 [History] Hydrocodone/Acetaminophen [[place] 5-325] 1 tab PO Q6HR PRN #10 tab 11/02/19 [Rx] Atorvastatin [Lipitor] 40 mg PO HS 11/21/19 [History] Carvedilol [Coreg] 3.125 mg PO BID-W/MEALS #60 tab 11/23/19 [Rx] Nicotine 21Mg/24Hr Patch [Habitrol] 1 patch TRANSDERM DAILY #14 patch 11/23/19 [Rx] Follow up Appointment(s)/Referral(s): Vasquez Alicea MD [Primary Care Provider] - 11/29/19 9:00 am Patient Instructions/Handouts: How to Stop Smoking (DC), Dehydration (DC), Acute Kidney Injury (DC), Hyponatremia (DC), Hypotension (DC) Activity/Diet/Wound Care/Special Instructions: Daily blood pressure check in the morning-keep a log and bring to your appointment with your primary care provider. Discharge Disposition: HOME SELF-CARE
== END 2019-11-23 14:45 | disposition home or self-care (01) | DRG 683 ==
LOC: EC 12:56 → 3SCARD 14:42
PROVIDERS: ADMIT Hospitalist; ATTEND Hospitalist
DX: N17.0 Acute kidney failure with tubular necrosis (principal); E87.1 Hypo-osmolality and hyponatremia; D63.1 Anemia in chronic kidney disease; D50.9 Iron deficiency anemia, unspecified; E86.0 Dehydration; F17.210 Nicotine dependence, cigarettes, uncomplicated; Z71.6 Tobacco abuse counseling; I12.9 Hypertensive chronic kidney disease with stage 1 through stage 4 chronic kidney disease, or unspecified chronic kidney disease; N18.9 Chronic kidney disease, unspecified; I25.10 Atherosclerotic heart disease of native coronary artery without angina pectoris; I25.2 Old myocardial infarction; J43.9 Emphysema, unspecified; J61 Pneumoconiosis due to asbestos and other mineral fibers; T44.7X5A Adverse effect of beta-adrenoreceptor antagonists, initial encounter; R00.1 Bradycardia, unspecified; Z77.090 Contact with and (suspected) exposure to asbestos; Z79.51 Long term (current) use of inhaled steroids; Z79.899 Other long term (current) drug therapy; Z82.49 Family history of ischemic heart disease and other diseases of the circulatory system; Z82.3 Family history of stroke; E07.81 Sick-euthyroid syndrome
CPT/HCPCS: 36415; 71046; 80048; 80053; 81003; 82330; 82550; 83605; 83735; 83930; 84443; 84484; 85025; 85610; 85730; 86850; 86900; 86901; 87040; 93005; 94640; 94760; 96360; 96361; 99291

== ENCOUNTER 2021-02-08 05:54 | Emergency (ER) | payer BC, MEDICARE ==
[2021-02-08] MEDS ORDERED: diphenhydrAMINE 50 MG/ML 1 ML VIAL IVP STA (06:06)
[2021-02-08] MEDS ORDERED: FAMOTIDINE 20 MG/2 ML VIAL IV STA (06:06)
[2021-02-08] MEDS ORDERED: methylPREDNISolone SOD SUCCI 125 MG/2 ML VIAL IV STA (06:06)
[2021-02-08] MEDS ORDERED: SODIUM CHLORIDE 0.9% 1,000 ML IV ONE (06:14)
--- NOTE | 2021-02-08 06:21 | ED ---
Allergic Reaction HPI - General Chief complaint: Allergic Reaction Stated complaint: AMENA Time Seen by Provider: 02/08/21 06:09 Source: patient, RN notes reviewed Mode of arrival: ambulatory Limitations: no limitations - History of Present Illness Initial Comments: 70-year-old male presents emergency Department chief complaint shortness of breath. Patient states she's been given the rash on his upper extremities for last couple days states it's been very itchy, weeping drainage. Patient states he got denies shortness morning when she does say was hot water states he started having some shortness of breath felt lightheaded at time. He denies any chest pain. Patient states she does feel occasionally short of breath he does have COPD. Patient is not taking medications for his rash. Denies being outside working or pain any new exposures to products. Did state these had this in the past states it cleared up. - Related Data Home Medications Medication Instructions Recorded Confirmed Budesonide-Formot 160-4.5 Mcg 2 puff INHALATION RT-BID 05/16/15 11/21/19 [Symbicort 160-4.5 Mcg Inhaler] Umeclidinium [place] [Incruse 1 puff INHALATION RT-DAILY 10/30/19 11/21/19 Ellipta] Atorvastatin [Lipitor] 40 mg PO HS 11/21/19 11/21/19 Previous Rx's Medication Instructions Recorded Isosorbide Mononitrate ER [Imdur] 30 mg PO DAILY #30 tab.er.24h 03/24/18 Hydrocodone/Acetaminophen [[place] 1 tab PO Q6HR PRN #10 tab 11/02/19 5-325] Nicotine 21Mg/24Hr Patch [Habitrol] 1 patch TRANSDERM DAILY #14 patch 11/23/19 carvediloL [Coreg] 3.125 mg PO BID-W/MEALS #60 tab 11/23/19 hydrOXYzine HCL [Atarax] 25 mg PO TID PRN #20 tab 02/08/21 predniSONE 50 mg PO DAILY #5 tab 02/08/21 Allergies Allergy/AdvReac Type Severity Reaction Status Date / Time No Known Allergies Allergy Verified 02/08/21 06:01 Review of Systems ROS Statement: Those systems with pertinent positive or pertinent negative responses have been documented in the HPI. ROS Other: All systems not noted in ROS Statement are negative. Past Medical History Past Medical History: COPD, Hypertension, Myocardial Infarction (MT) Additional Past Medical History / Comment(s): chemical burn to arms d/t work related injury, asbestos exposure Last Myocardial Infarction Date:: 2016 History of Any Multi-Drug Resistant Organisms: None Reported Past Surgical History: Appendectomy, Back Surgery, Orthopedic Surgery Additional Past Surgical History / Comment(s): carpal tunel, knee sx Past Anesthesia/Blood Transfusion Reactions: No Reported Reaction Past Psychological History: No Psychological Hx Reported Smoking Status: Current some day smoker Past Alcohol Use History: None Reported Past Drug Use History: None Reported - Past Family History Father Family Medical History: Myocardial Infarction (MT) Mother Family Medical History: CVA/TIA, Myocardial Infarction (MT), Pneumonia General Exam Limitations: no limitations General appearance: alert, in no apparent distress Head exam: Present: atraumatic, normocephalic, normal inspection Eye exam: Present: normal appearance, PERRL, EOMI. Absent: scleral icterus, conjunctival injection, periorbital swelling ENT exam: Present: normal exam, normal oropharynx, mucous membranes moist Neck exam: Present: normal inspection. Absent: tenderness, meningismus, lymphadenopathy Respiratory exam: Present: normal lung sounds bilaterally. Absent: respiratory distress, wheezes, rales, rhonchi, stridor Cardiovascular Exam: Present: regular rate, normal rhythm, normal heart sounds. 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 His been a recurrent issue with his work. Patient states he feels improved after Solu-Medrol Pepcid and Benadryl. Patient tolerate was around 40 to 50s doses normal for patient and he states that he took his carvedilol this morning. Denies any chest pain no current shortness of breath. Patient feels comfortable discharged with steroids - Lab Data Result diagrams: 02/08/21 06:48 02/08/21 06:48 Lab Results 02/08/21 02/08/21 02/08/21 Range/Units 06:48 06:48 06:48 WBC 6.6 (3.8-10.6) k/uL RBC 3.85 L (4.30-5.90) m/uL Hgb 12.2 L (13.0-17.5) gm/dL Hct 37.4 L (39.0-53.0) % MCV 97.0 (80.0-100.0) fL MCH 31.7 (25.0-35.0) pg MCHC 32.7 (31.0-37.0) g/dL RDW 12.8 (11.5-15.5) % Plt Count 339 (150-450) k/uL MPV 6.5 Neutrophils % 72 % Lymphocytes % 10 % Monocytes % 9 % Eosinophils % 6 % Basophils % 1 % Neutrophils # 4.8 (1.3-7.7) k/uL Lymphocytes # 0.6 L (1.0-4.8) k/uL Monocytes # 0.6 (0-1.0) k/uL Eosinophils # 0.4 (0-0.7) k/uL Basophils # 0.1 (0-0.2) k/uL PT 10.0 (9.0-12.0) sec INR 0.9 (<1.2) APTT 23.9 (22.0-30.0) sec Sodium 129 L (137-145) mmol/L Potassium 4.4 (3.5-5.1) mmol/L Chloride 99 (98-107) mmol/L Carbon Dioxide 24 (22-30) mmol/L Anion Gap 6 mmol/L BUN 27 H (9-20) mg/dL Creatinine 1.62 H (0.66-1.25) mg/dL Est GFR (CKD-EPI)AfAm 49 (>60 ml/min/1.73 sqM) Est GFR (CKD-EPI)NonAf 43 (>60 ml/min/1.73 sqM) Glucose 93 (74-99) mg/dL Calcium 7.7 L (8.4-10.2) mg/dL Magnesium 2.2 (1.6-2.3) mg/dL Total Bilirubin 0.5 (0.2-1.3) mg/dL AST 23 (17-59) U/L ALT 15 (4-49) U/L Alkaline Phosphatase 73 (38-126) U/L Troponin I (0.000-0.034) ng/mL NT-Pro-B Natriuret Pep pg/mL Total Protein 5.4 L (6.3-8.2) g/dL Albumin 2.9 L (3.5-5.0) g/dL 02/08/21 02/08/21 Range/Units 06:48 06:48 WBC (3.8-10.6) k/uL RBC (4.30-5.90) m/uL Hgb (13.0-17.5) gm/dL Hct (39.0-53.0) % MCV (80.0-100.0) fL MCH (25.0-35.0) pg MCHC (31.0-37.0) g/dL RDW (11.5-15.5) % Plt Count (150-450) k/uL MPV Neutrophils % % Lymphocytes % % Monocytes % % Eosinophils % % Basophils % % Neutrophils # (1.3-7.7) k/uL Lymphocytes # (1.0-4.8) k/uL Monocytes # (0-1.0) k/uL Eosinophils # (0-0.7) k/uL Basophils # (0-0.2) k/uL PT (9.0-12.0) sec INR (<1.2) APTT (22.0-30.0) sec Sodium (137-145) mmol/L Potassium (3.5-5.1) mmol/L Chloride (98-107) mmol/L Carbon Dioxide (22-30) mmol/L Anion Gap mmol/L BUN (9-20) mg/dL Creatinine (0.66-1.25) mg/dL Est GFR (CKD-EPI)AfAm (>60 ml/min/1.73 sqM) Est GFR (CKD-EPI)NonAf (>60 ml/min/1.73 sqM) Glucose (74-99) mg/dL Calcium (8.4-10.2) mg/dL Magnesium (1.6-2.3) mg/dL Total Bilirubin (0.2-1.3) mg/dL AST (17-59) U/L ALT (4-49) U/L Alkaline Phosphatase (38-126) U/L Troponin I <0.012 (0.000-0.034) ng/mL NT-Pro-B Natriuret Pep 559 pg/mL Total Protein (6.3-8.2) g/dL Albumin (3.5-5.0) g/dL - EKG Data -: EKG Interpreted by Ut EKG Comments: EKG performed at 6:55 sinus bradycardia with rate of 45 ND 158 QRS 96 QT/QTC 406/420 Disposition Clinical Impression: Allergic reaction, Contact dermatitis Disposition: HOME SELF-CARE Condition: Stable Instructions (If sedation given, give patient instructions): Contact Dermatitis (ED) Additional Instructions: Please return to the Emergency Department if symptoms worsen or any other concerns. Prescriptions: hydrOXYzine HCL [Atarax] 25 mg PO TID PRN #20 tab PRN Reason: Itching predniSONE 50 mg PO DAILY #5 tab Is patient prescribed a controlled substance at d/c from ED?: No Referrals: Vasquez Alicea MD [Primary Care Provider] - 1-2 days Time of Disposition: 07:56
[2021-02-08] MEDS ORDERED: IPRATROPIUM-ALBUTEROL 3 ML NEB INHALATION STA (06:31)
--- NOTE | 2021-02-08 06:36 | XR ---
EXAM: XR Chest, 1 View CLINICAL HISTORY: ITS.REASON XR Reason: sob TECHNIQUE: Frontal view of the chest. COMPARISON: 11/21/19 FINDINGS: Lungs: Slight coarse lung markings likely chronic and unchanged. No new consolidation or opacity Pleural space: Redemonstration of amorphous calcific density in both lungs likely calcified pleural plaque, unchanged. Blunting of the costophrenic angle with flattening of the diaphragms bilaterally likely due to underlying emphysema and pleural thickening. No pneumothorax. Heart: Unremarkable. No cardiomegaly. Mediastinum: Unremarkable. Bones/joints: Unremarkable. Vasculature: Calcified tortuous thoracic aorta again seen. Upper abdomen: Again noted is eventration of the right hemidiaphragm with slight tenting likely related to chronic scarring. Other findings: No new focal opacity. IMPRESSION: 1. Stable chronic findings as described. 2. No dense consolidation or significant effusion.
[2021-02-08 07:08] LABS: Basophils # (A) 0.1 k/uL (0-0.2); Basophils % (A) 1 %; Eosinophils # (A) 0.4 k/uL (0-0.7); Eosinophils % (A) 6 %; HCT 37.4 % (39.0-53.0); HGB 12.2 gm/dL (13.0-17.5); Lymphocytes # (A) 0.6 k/uL (1.0-4.8); Lymphocytes % (A) 10 %; MCH 31.7 pg (25.0-35.0); MCHC 32.7 g/dL (31.0-37.0); Mean Platelet Volume 6.5; Monocytes # (A) 0.6 k/uL (0-1.0); Monocytes % (A) 9 %; Neutrophils # (A) 4.8 k/uL (1.3-7.7); Neutrophils % (A) 72 %; Platelet Count 339 k/uL (150-450); RBC 3.85 m/uL (4.30-5.90); RDW 12.8 % (11.5-15.5); WBC 6.6 k/uL (3.8-10.6)
[2021-02-08 07:15] LABS: INR 0.9 (<1.2); Partial Thromboplastin Time 23.9 sec (22.0-30.0)
[2021-02-08 07:20] LABS: Albumin 2.9 g/dL (3.5-5.0); Calcium 7.7 mg/dL (8.4-10.2); Magnesium 2.2 mg/dL (1.6-2.3); Potassium 4.4 mmol/L (3.5-5.1); Total Bilirubin 0.5 mg/dL (0.2-1.3); Total Protein 5.4 g/dL (6.3-8.2)
[2021-02-08 08:01] VITALS: BP 142/76; PULSE 50; RESP 22; TEMP 98
== END 2021-02-08 08:27 | disposition home or self-care (01) ==
LOC: EC 05:54
DX: L23.9 Allergic contact dermatitis, unspecified cause (principal); J44.9 Chronic obstructive pulmonary disease, unspecified; I25.2 Old myocardial infarction; I10 Essential (primary) hypertension; F17.200 Nicotine dependence, unspecified, uncomplicated; Z79.51 Long term (current) use of inhaled steroids; Z79.52 Long term (current) use of systemic steroids; Z82.49 Family history of ischemic heart disease and other diseases of the circulatory system
CPT/HCPCS: 36415; 94640; 93005; 83880; 80053; 83735; 84484; 85025; 85610; 85730; 71045; 99284; 96374; 96375; 96361; J1200; J2930

== ENCOUNTER → 2021-12-12 | Outpatient (CLI) | payer BC, MEDICARE ==
--- NOTE | 2021-12-12 11:40 | CTL ---
EXAMINATION TYPE: CT Low Dose Lung DATE OF EXAM ORDERED: 12/12/2021 HISTORY: . Lung cancer screening CT DLP: 106.[address] CTDI: 2.90 mGy Automated exposure control for dose reduction was used. SCREENING VISIT: COMPARISON: 537 TECHNIQUE: Low dose computed tomography scan was performed through the chest at 1 mm thick sections a nd reconstructed images in multiple planes at 1 mm and [address] DIAGNOSTIC QUALITY: Satisfactory FINDINGS: Calcified pleural plaques bilaterally are noted. There is underlying emphysematous change. There is s ome linear scarring in both lungs inferiorly involving the lingula, right middle lobe, and bilateral lower lobes. No pleural effusion or pneumothorax is present bilaterally. Ascending aorta measures 4.1 cm compatibl e with mild aneurysmal dilation. Atherosclerotic changes noted. Coronary artery dense calcifications. 5 mm subpleural nodule left upper lobe. Stable right upper lobe nodule measuring 4 mm. Stable 4 mm nodule right lower lobe. Stable 5 mm nodule left lower lobe No cardiomegaly or pericardial effusion is seen. Calcifications at level of mitral valve are present. Coronary artery calcifications are seen which is noted marker for coronary artery disease. There is mild to moderate atherosclerotic change of the visualized aorta. There is 1.3 cm hypodense nodule rig ht thyroid lobe mid pole level. Fairly moderate to severe multilevel spurring in the mid to lower thoracic spine is present. Mild mul tilevel height loss or compression type deformities is seen. IMPRESSION: 1. COPD with stable multiple 5 mm or less pulmonary nodules. 2. Coronary artery disease. 3. Large pleural plaques correlate for asbestosis related disease #4 mild aneurysmal dilation ascendi ng aorta having a maximal dimension of 4.[address] LUNG RAD AND CT CHEST RECOMMENDATION: Lung-Rad 2 Benign Appearance or Behavior: Continue annual sc reening with LDCT in 12 months. S Modifier (other clinically significant findings):
== END | disposition home or self-care (01) ==
LOC: RADCTMAIN 07:25
PROVIDERS: ATTEND Internal Medicine Critical Care Medicine
DX: Z12.2 Encounter for screening for malignant neoplasm of respiratory organs (principal); J44.9 Chronic obstructive pulmonary disease, unspecified; R91.8 Other nonspecific abnormal finding of lung field; I25.10 Atherosclerotic heart disease of native coronary artery without angina pectoris; J92.9 Pleural plaque without asbestos; I71.2 Thoracic aortic aneurysm, without rupture; Z87.891 Personal history of nicotine dependence
CPT/HCPCS: 71271

== ENCOUNTER → 2022-04-23 | Outpatient (CLI) | payer OTHER ==
--- NOTE | 2022-04-23 11:31 | XR ---
Left humerus HISTORY: Trauma, pain Frontal and lateral views left humerus There is calcification adjacent to the left humeral head possibly related to calcific is. Probable va scular calcifications are noted incidentally in the soft tissues. Distal acromion appears downturned, acromioclavicular joint arthropathy is present. Alignment and bone mineralization are maintained. No radio opaque foreign body. Visualized portions of the left lung are normal. IMPRESSION: No acute abnormality evident.
== END | disposition home or self-care (01) ==
LOC: RADXRMAIN 10:35
PROVIDERS: ATTEND Emergency Medicine
DX: S40.022A Contusion of left upper arm, initial encounter (principal)

== ENCOUNTER → 2023-01-05 | Outpatient (CLI) | payer BC, MEDICARE ==
--- NOTE | 2023-01-05 10:35 | CTL ---
EXAMINATION TYPE: CT Low Dose Lung DATE OF EXAM ORDERED: 01/05/2023 HISTORY: . Lung cancer screening CT DLP: 106.[address] CTDI: 2.9 mGy Automated exposure control for dose reduction was used. SCREENING VISIT: COMPARISON: TECHNIQUE: Low dose computed tomography scan was performed through the chest at 1 mm thick sections a nd reconstructed images in multiple planes at 1 mm and [address] DIAGNOSTIC QUALITY: Satisfactory FINDINGS: Calcified pleural plaques bilaterally are noted. There is underlying emphysematous change. There is s ome linear scarring in both lungs inferiorly involving the lingula, right middle lobe, and bilateral lower lobes. No pleural effusion or pneumothorax is present bilaterally. Ascending aorta measures 4.3 cm compatibl e with mild aneurysmal dilation. Atherosclerotic changes noted. Coronary artery dense calcifications. 5 mm subpleural nodule left upper lobe. Stable right upper lobe nodule measuring 4 mm. Stable 4 mm nodule right lower lobe. Stable 5 mm nodule left lower lobe The heart is mildly enlarged and there is a tiny pericardial effusion on today's exam. Calcifications at level of mitral valve are present. Coronary artery calcifications are seen which is noted marker for coronary artery disease. There is mild to moderate atherosclerotic change of the visualized aorta . There is 1.3 cm hypodense nodule right thyroid lobe mid pole level. Fairly moderate to severe multilevel spurring in the mid to lower thoracic spine is present. Mild mul tilevel height loss or compression type deformities is seen. IMPRESSION: 1. COPD with stable multiple 5 mm or less pulmonary nodules. 2. Coronary artery disease. 3. Large pleural plaques correlate for asbestosis related disease. 4. Mild aneurysmal dilation ascending aorta having a maximal dimension of 4.3 cm and previously measu red 4.1 cm . 5. There is a 1.3 cm right thyroid nodule CT LUNG RAD AND CT CHEST RECOMMENDATION: Lung-Rad 2 Benign Appearance or Behavior: Continue annual sc reening with LDCT in 12 months.
== END | disposition home or self-care (01) ==
LOC: RADCTMAIN 08:47
PROVIDERS: ATTEND Internal Medicine Critical Care Medicine
DX: Z12.2 Encounter for screening for malignant neoplasm of respiratory organs (principal); J44.9 Chronic obstructive pulmonary disease, unspecified; I25.10 Atherosclerotic heart disease of native coronary artery without angina pectoris; I71.21 Aneurysm of the ascending aorta, without rupture; E04.1 Nontoxic single thyroid nodule; J92.9 Pleural plaque without asbestos; Z87.891 Personal history of nicotine dependence
CPT/HCPCS: 71271

== ENCOUNTER 2023-01-15 08:21 | Emergency (ER) | payer BC, MEDICARE ==
[2023-01-15 08:30] VITALS: BP 158/75; PULSE 62; RESP 18; TEMP 97.8
[2023-01-15] MEDS ORDERED: methylPREDNISolone SOD SUCCI 125 MG/2 ML VIAL IM ONE (08:39)
[2023-01-15] MEDS ORDERED: LORATADINE 10 MG TAB PO STA (08:39)
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
== END 2023-01-15 08:49 | disposition home or self-care (01) ==
LOC: EC 08:21
DX: L03.114 Cellulitis of left upper limb (principal); L03.113 Cellulitis of right upper limb; J44.9 Chronic obstructive pulmonary disease, unspecified; I10 Essential (primary) hypertension; I25.2 Old myocardial infarction; F17.200 Nicotine dependence, unspecified, uncomplicated; Z79.51 Long term (current) use of inhaled steroids; Z79.899 Other long term (current) drug therapy
CPT/HCPCS: 99282; 96372; J2930

== ENCOUNTER 2023-01-30 22:45 | Observation (INO) | payer BC, MEDICARE ==
[2023-01-30 23:17] LABS: Glucose,Whole Blood 96 mg/dL (70-110)
[2023-01-30] MEDS ORDERED: SODIUM CHLORIDE 0.9% 500 ML 500 ML IV STA (23:43)
[2023-01-30 23:58] LABS: Basophils % (A) 0 %; Eosinophils # (A) 0.3 k/uL (0-0.7); Eosinophils % (A) 5 %; HCT 34.6 % (39.0-53.0); HGB 11.7 gm/dL (13.0-17.5); Lymphocytes # (A) 0.6 k/uL (1.0-4.8); Lymphocytes % (A) 10 %; MCH 31.8 pg (25.0-35.0); MCHC 33.8 g/dL (31.0-37.0); Mean Platelet Volume 6.7; Monocytes # (A) 0.8 k/uL (0-1.0); Monocytes % (A) 13 %; Neutrophils # (A) 4.5 k/uL (1.3-7.7); Neutrophils % (A) 69 %; Platelet Count 282 k/uL (150-450); RBC 3.68 m/uL (4.30-5.90); RDW 13.4 % (11.5-15.5); WBC 6.6 k/uL (3.8-10.6)
[2023-01-31 00:16] LABS: Albumin 3.3 g/dL (3.5-5.0); Calcium 7.8 mg/dL (8.4-10.2); Potassium 4.5 mmol/L (3.5-5.1); Total Bilirubin 0.4 mg/dL (0.2-1.3); Total Protein 5.8 g/dL (6.3-8.2)
[2023-01-31 00:20] LABS: INR 0.9 (<1.2); Partial Thromboplastin Time 24.9 sec (22.0-30.0); Prothrombin Time 9.5 sec (9.0-12.0)
--- NOTE | 2023-01-31 01:11 | CT ---
EXAM: CT Head Without Intravenous Contrast CLINICAL HISTORY: ITS.REASON CT Reason: Neuro deficit, acute, stroke suspected TECHNIQUE: Axial computed tomography images of the head/brain without intravenous contrast. CTDI is 48.9 mGy and DLP is 1141 mGy-cm. This CT exam was performed using one or more of the following dose reduction techniques: automated exposure control, adjustment of the mA and/or kV according to patient size, and/or use of iterative reconstruction technique. COMPARISON: No previous studies. FINDINGS: Brain: Unremarkable. No hemorrhage. No significant white matter disease. No abnormal extra-axial collection is noted. Midline shift: Midline anatomy is unremarkable. Ventricles: Unremarkable. No ventriculomegaly. Bones/joints: Calvarium is within normal limits. No acute fracture. Soft tissues: Unremarkable. Vasculature: Minimal atherosclerotic disease. Sinuses: Visualized sinuses are unremarkable. Mastoid air cells: Mastoid air cells are well pneumatized. Other findings: Age-related changes. IMPRESSION: 1. Age-related changes. 2. No acute intracranial pathology. 3. If there is concern for etiology such as early acute lacunar infarcts, MRI imaging of the brain with diffusion-weighted sequences should be performed.
--- NOTE | 2023-01-31 01:15 | CT ---
EXAM: CT Angiography Head With Intravenous Contrast CLINICAL HISTORY: ITS.REASON CT Reason: Neuro deficit, acute, stroke suspected TECHNIQUE: Axial computed tomographic angiography images of the head with intravenous contrast. CTDI is 19 mGy and DLP is 287.25 mGy-cm. This CT exam was performed using one or more of the following dose reduction techniques: automated exposure control, adjustment of the mA and/or kV according to patient size, and/or use of iterative reconstruction technique. MIP reconstructed images were created and reviewed. COMPARISON: 01/31/2023. FINDINGS: Right internal carotid artery: G atherosclerotic disease of the intracranial segments of the internal carotid arteries. Intracranial segment is patent with no significant stenosis. No aneurysm. Right anterior cerebral artery: Unremarkable. No occlusion or significant stenosis. No aneurysm. Right middle cerebral artery: Middle cerebral arteries are unremarkable. No occlusion or significant stenosis. No aneurysm. Right posterior cerebral artery: The anterior and posterior cerebral arteries are unremarkable. No occlusion or significant stenosis. No aneurysm. Right vertebral artery: Good flow within the distal vertebral arteries extending to the basilar artery. Left internal carotid artery: See above. Left anterior cerebral artery: Unremarkable. No occlusion or significant stenosis. No aneurysm. Left middle cerebral artery: See above. Left posterior cerebral artery: See above. Left vertebral artery: See above. Basilar artery: See above. Other findings: The region of the [place] is unremarkable. IMPRESSION: 1. Atherosclerotic disease. 2. Good flow within the intracranial arterial system. EXAM: CT Angiography Neck With Intravenous Contrast CLINICAL HISTORY: ITS.REASON CT Reason: Neuro deficit, acute, stroke suspected TECHNIQUE: Routine carotid CT angiography protocol was performed with intravenous contrast. NASCET criteria using the distal ICAs for comparison were used for evaluation of stenoses. CTDI is 19 mGy and DLP is 287.25 mGy-cm. This CT exam was performed using one or more of the following dose reduction techniques: automated exposure control, adjustment of the mA and/or kV according to patient size, and/or use of iterative reconstruction technique. MIP reconstructed images were created and reviewed. COMPARISON: 01/31/2023. FINDINGS: VASCULATURE: Right common carotid artery: Diffuse atherosclerotic disease of the common carotid arteries. No occlusion or significant stenosis. No dissection. Right internal carotid artery: There is approximate 60-70% luminal stenosis at the proximal right internal carotid artery due to atherosclerotic disease. Atherosclerotic disease of the proximal intracranial segments of the internal carotid arteries. No dissection. Right external carotid artery: Unremarkable. No occlusion. Right vertebral artery: Good flow within the vertebral arteries bilaterally. No occlusion or significant stenosis. No dissection. Left common carotid artery: See above. Left internal carotid artery: See above. Left external carotid artery: Unremarkable. No occlusion. Left vertebral artery: See above. Other vasculature: Atherosclerotic disease of the carotid bifurcation. Aorta: Atherosclerotic disease of the thoracic aorta and aortic arch. NECK: Bones/joints: Unremarkable. Soft tissues: Unremarkable. Lung apices: Visualized upper lobes are unremarkable. CAROTID STENOSIS REFERENCE USING NASCET CRITERIA: % ICA stenosis = (1 - narrowest ICA diameter/diameter of distal cervical ICA) x 100. Mild - <50% stenosis. Moderate - 50-69% stenosis. Severe - 70-94% stenosis. Near occlusion - 95-99% stenosis. Occluded - 100% stenosis. IMPRESSION: 1. Diffuse atherosclerotic disease. 2. Good flow within the great vessels neck. 3. Findings suggestive of 60-70% luminal stenosis of the proximal right internal carotid artery due to atherosclerotic disease. Duplex Doppler interrogation of the carotid systems is advised to assess for peak systolic velocities.
[2023-01-31 01:19] LABS: Appearance,Urine Clear (Clear); Bilirubin,Urine Negative (Negative); Blood,Urine Negative (Negative); Color,Urine Light Yellow; Glucose,Urine (UA) Negative (Negative); Ketones,Urine Negative (Negative); Leukocyte Esterase,Urine Negative (Negative); Nitrite,Urine Negative (Negative); PH, Urine 6.5 (5.0-8.0); Protein,Urine Negative (Negative); Specific Gravity,Urine 1.011 (1.001-1.035); Urobilinogen,Urine <2.0 mg/dL (<2.0)
[2023-01-31 01:37] LABS: Amphetamine Screen,Urine Not Detected (NotDetected); Barbiturate Screen,Urine Not Detected (NotDetected); Benzodiazepines Screen,Urine Not Detected (NotDetected); Cocaine Screen,Urine Not Detected (NotDetected); Methadone Screen, Urine Not Detected (NotDetected); Opiate Screen,Urine Not Detected (NotDetected); Oxycodone Screen, Urine Not Detected (NotDetected); Phencyclidine Screen,Urine Not Detected (NotDetected); Tricyclic Antidepressant,Urine Not Detected (NotDetected); Urn Cannabinoid Scrn Not Detected (NotDetected)
--- NOTE | 2023-01-31 01:44 | XR ---
EXAM: XR Chest, 1 View CLINICAL HISTORY: ITS.REASON XR Reason: altered mental status TECHNIQUE: Frontal view of the chest. COMPARISON: Chest x-ray study of 02/08/2021. FINDINGS: Lungs: Findings compatible with pleural calcifications 0, right lung worse than the left lung, unchanged from the previous study. Mild diffuse interstitial prominence. Pleural space: Blunting of the CP angles, unchanged. No pneumothorax. Heart: Heart is top normal in size. Mediastinum: Unremarkable. Bones/joints: Osteopenia. IMPRESSION: 1. Mild interstitial lung disease. 2. Areas of pleural calcification, unchanged. 3. Blunting of the CP angles, unchanged. 4. Osteopenia.
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
[2023-01-31] MEDS ORDERED: NALOXONE 0.4 MG/ML 1 ML VIAL IV PRN (02:48)
[2023-01-31] MEDS ORDERED: SODIUM CHLORIDE 0.9% 1,000 ML IV SCH (03:00)
[2023-01-31] MEDS ORDERED: ASPIRIN 81 MG PO SCH (11:15)
[2023-01-31] MEDS ORDERED: CLOPIDOGREL 75 MG TAB PO SCH (11:15)
[2023-01-31 13:07] VITALS: BP 186/87; PULSE 71; RESP 18; TEMP 97.9
[2023-01-31] MEDS ORDERED: ALBUTEROL NEBULIZED 2.5 MG/3 ML INHALATION PRN (13:32)
[2023-01-31] MEDS ORDERED: carvediloL 6.25 MG TAB PO SCH (13:33)
[2023-01-31] MEDS ORDERED: ISOSORBIDE MONONITRATE ER 30 MG TAB.ER.24H PO SCH (13:45)
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
[2023-01-31] MEDS ORDERED: LOSARTAN 50 MG TAB PO SCH (14:00)
--- NOTE | 2023-01-31 14:02 | P.DS ---
Providers Date of admission: 01/31/23 02:48 Attending physician: Hakeem Dhillon MD Consults: 01/31/23 02:48 Consult Physician Urgent Consulting Provider: Marcello Beebe Consult Reason/Comments: Acute ataxia, acute bilateral lower extremity weakness Do you want consulting provider notified?: Yes Primary care physician: [facility] Course: 72-year-old male came in with compensative dizziness generalized weakness patient doesn't have any focal weakness patient problems denied nausea vomiting patient is found to be hyponatremic patient is on diuretics for blood pressure at home. Patient had an echo in 2018 which was within normal limits with normal ejection fraction patient had history of coronary artery disease with stents in the past follows up cardiology as an outpatient. Patient's EKG showed sinus rhythm with PVCs and no other significant abnormalities were evident on the environmental monitoring specialist. Chest x-ray did not show any significant abnormality. Patient had a CT angiography of the head and neck which showed 66-70% luminal stenosis of proximal internal carotid artery. Although this may not be contributing to the patient's symptoms. Patient admits to drinking lots of coffee which contributes to his diuresis and lightheadedness. REVIEW OF SYSTEMS: CONSTITUTIONAL: No fever, no malaise, no fatigue. HEENT: No recent visual problems or hearing problems. Denied any sore throat. CARDIOVASCULAR: No chest pain, orthopnea, PND, no palpitations, no syncope. PULMONARY: No shortness of breath, no cough, no hemoptysis. GASTROINTESTINAL: No diarrhea, no nausea, no vomiting, no abdominal pain. NEUROLOGICAL: No headaches, no weakness, no numbness. HEMATOLOGICAL: Denies any bleeding or petechiae. GENITOURINARY: Denies any burning micturition, frequency, or urgency. MUSCULOSKELETAL/RHEUMATOLOGICAL: Denies any joint pain, swelling, or any muscle pain. ENDOCRINE: Denies any polyuria or polydipsia. The rest of the 14-point review of systems is negative. PHYSICAL EXAMINATION: GENERAL: The patient is alert and oriented x3, not in any acute distress. Well developed, well nourished. HEENT: Pupils are round and equally reacting to light. EOMI. No scleral icterus. No conjunctival pallor. Normocephalic, atraumatic. No pharyngeal erythema. No thyromegaly. CARDIOVASCULAR: S1 and S2 present. No murmurs, rubs, or gallops. PULMONARY: Chest is clear to auscultation, no wheezing or crackles. ABDOMEN: Soft, nontender, nondistended, normoactive bowel sounds. No palpable organomegaly. MUSCULOSKELETAL: No joint swelling or deformity. EXTREMITIES: No cyanosis, clubbing, or pedal edema. NEUROLOGICAL: Gross neurological examination did not reveal any focal deficits. SKIN: No rashes. Assessment and plan -Dizziness: Secondary to hyponatremia, mild mild hypokalemia with creatinine of 1.13 which is again secondary to excess coffee and hydrochlorothiazide had a good thiazide will be discontinue pacing was counseled regarding excessive caffeine use. Patient's symptoms resolved after IV fluids. My suspicion is low for TIA patient doesn't have any other symptoms at this time .if patient can use to have the symptoms he may need an echo at that time with or without Holter monitoring. Patient will be discharged today with expectation that his sodium will come up once the diuretics is stopped. -Hypertension: Patient blood pressure is elevated as he didn't receive his antidepressive medication today patient was started on losartan will be discharged on irbesartan and discontinue hydrochlorothiazide. -Coronary artery disease -COPD without any acute exacerbation Patient will be discharged today Patient Condition at Discharge: Serious Plan - Discharge Summary Discharge Rx Participant: Yes New Discharge Prescriptions: New Irbesartan 300 mg PO DAILY #30 tablet Discontinued Irbesartan/Hydrochlorothiazide [Irbesartan-Hctz 300-12.5 mg Tb] 1 tab PO DAILY No Action Budesonide-Formot 160-4.5 Mcg [Symbicort 160-4.5 Mcg Inhaler] 2 puff INHALATION RT-BID Isosorbide Mononitrate ER [Imdur] 30 mg PO DAILY #30 tab.er.24h Atorvastatin [Lipitor] 40 mg PO HS carvediloL [Coreg] 6.25 mg PO BID-W/MEALS Albuterol Sulfate [Albuterol Sulfate Hfa] 1 - 2 puff PO RT-Q6H PRN PRN Reason: Shortness Of Breath Tiotropium [place] [Spiriva] 1 puff INHALATION RT-DAILY hydrOXYzine HCL [Atarax] 25 mg PO TID PRN #20 tab PRN Reason: Itching Discharge Medication List Budesonide-Formot 160-4.5 Mcg [Symbicort 160-4.5 Mcg Inhaler] 2 puff INHALATION RT-BID 05/16/15 [History] Isosorbide Mononitrate ER [Imdur] 30 mg PO DAILY #30 tab.er.24h 03/24/18 [Rx] Atorvastatin [Lipitor] 40 mg PO HS 11/21/19 [History] hydrOXYzine HCL [Atarax] 25 mg PO TID PRN #20 tab 02/08/21 [Rx] Albuterol Sulfate [Albuterol Sulfate Hfa] 1 - 2 puff PO RT-Q6H PRN 01/31/23 [History] Irbesartan 300 mg PO DAILY #30 tablet 01/31/23 [Rx] Tiotropium [place] [Spiriva] 1 puff INHALATION RT-DAILY 01/31/23 [History] carvediloL [Coreg] 6.25 mg PO BID-W/MEALS 01/31/23 [History] Follow up Appointment(s)/Referral(s): Vasquez Alicea MD [Primary Care Provider] - 3 Days
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
[2023-01-31 14:11] LABS: African American GFR (CKD) >90 (>60 ml/min/1.73 sqM); Anion Gap 10 mmol/L; Blood Urea Nitrogen 12 mg/dL (9-20); Calcium 8.3 mg/dL (8.4-10.2); Carbon Dioxide 24 mmol/L (22-30); Chloride 97 mmol/L (98-107); Glucose 69 mg/dL (74-99); Non-African American GFR(CKD) 83 (>60 ml/min/1.73 sqM); Sodium 131 mmol/L (137-145)
--- NOTE | 2023-01-31 14:49 | US ---
EXAMINATION TYPE: US carotid duplex BILAT DATE OF EXAM: 01/31/2023 COMPARISON: CLINICAL INDICATION: Male, 72 years old with history of ??ICA stenosis; Patient states he felt dizzy this morning. HTN controlled with meds. TECHNIQUE: Carotid duplex ultrasound examination. Indirect Doppler criteria was utilized. FINDINGS: EXAM MEASUREMENTS: RIGHT: Peak Systolic Velocity (PSV) cm/sec ----- Right CCA: 61.5 ----- Right ICA: 143.0 ----- Right ECA: 156.0 ICA/CCA ratio: 2.3 RIGHT: End Diastole cm/sec ----- Right CCA: 17.6 ----- Right ICA: 36.5 ----- Right ECA: 17.5 LEFT: Peak Systolic Velocity (PSV) cm/sec ----- Left CCA: 46.8 ----- Left ICA: 131.0 ----- Left ECA: 84.5 ICA/CCA ratio: 2.8 LEFT: End Diastole cm/sec ----- Left CCA: 0.0 ----- Left ICA: 33.6 ----- Left ECA: 8.5 VERTEBRALS (direction of flow): Right Vertebral: Antegrade Left Vertebral: Antegrade Rhythm: Arrhythmia SQL REPORT WRITER NOTES: Plaque visualized in bilateral CCA and bulbs. Bilateral significant stenosis. Wa ll thickening. Elevated right ECA, mid and distal ICA velocities. Elevated left distal ICA velocity . IMPRESSION: 1. There is bilateral atherosclerotic plaque with findings suggestive of 50-69% stenosis bilaterally within the proximal ICA. Criteria for Assigning % of Stenosis / Diameter reduction (Estimation based on the indirect measurements of the internal carotid artery velocities (ICA PSV). 1. Normal (no stenosis)=ICA PSV < 125 cm/s: ratio < 2.0: ICA EDV<40 cm/s. 2. Less than 50% stenosis=ICA PSV < 125 cm/s: ratio < 2.0: ICA EDV<40 cm/s. 3. 50 to 69% stenosis=ICA PSV of 125 to 230 cm/s: ration 2.0 ? 4.0: ICA EDV 40-100 cm/s. 4. Greater than 70% stenosis to near occlusion= ICA PSV > 230 cm/s: ratio > 4.0: ICA EDV > 100 cm/s. 5. Near occlusion= ICA PSV velocities may be low or undetectable: variable ratio and ICA EDV. 6. Total occlusion=unable to detect flow.
[2023-01-31] MEDS ORDERED: SYMBICORT 160-4.5 MCG INHALER INHALATION SCH (20:00)
[2023-01-31] MEDS ORDERED: ATORVASTATIN 40 MG TAB PO SCH (21:00)
[2023-02-01] MEDS ORDERED: IPRATROPIUM 0.5 MG/2.5 ML NEBU INHALATION SCH (08:00)
== END 2023-01-31 16:50 | disposition home or self-care (01) ==
LOC: EC 22:45 → 6NMEDSUR 01-31 02:48 → 5NMEDONC 01-31 04:18
PROVIDERS: ADMIT Internal Medicine; ATTEND Internal Medicine
DX: E87.1 Hypo-osmolality and hyponatremia (principal); E87.6 Hypokalemia; T50.2X5A Adverse effect of carbonic-anhydrase inhibitors, benzothiadiazides and other diuretics, initial encounter; T43.615A Adverse effect of caffeine, initial encounter; I65.21 Occlusion and stenosis of right carotid artery; I49.3 Ventricular premature depolarization; J84.9 Interstitial pulmonary disease, unspecified; M85.80 Other specified disorders of bone density and structure, unspecified site; J44.0 Chronic obstructive pulmonary disease with (acute) lower respiratory infection; I25.10 Atherosclerotic heart disease of native coronary artery without angina pectoris; I10 Essential (primary) hypertension; I49.1 Atrial premature depolarization; H91.90 Unspecified hearing loss, unspecified ear; I25.2 Old myocardial infarction; E78.5 Hyperlipidemia, unspecified; Z79.82 Long term (current) use of aspirin; Z79.51 Long term (current) use of inhaled steroids; Z79.52 Long term (current) use of systemic steroids; Z79.899 Other long term (current) drug therapy; Z77.090 Contact with and (suspected) exposure to asbestos; Z87.828 Personal history of other (healed) physical injury and trauma; Z90.49 Acquired absence of other specified parts of digestive tract; Z95.5 Presence of coronary angioplasty implant and graft; Z87.891 Personal history of nicotine dependence; Z98.890 Other specified postprocedural states; Z82.49 Family history of ischemic heart disease and other diseases of the circulatory system; Z82.3 Family history of stroke; Z82.5 Family history of asthma and other chronic lower respiratory diseases
CPT/HCPCS: 96360; 99285; 36415 ×2; 93005; 97161; 80053; 80048; 84443; 82607; 82550; 82746; 84484; 85025; 85610; 85730; 81003; 80306; 83036; 71045; 93880; 70496; 70450; 70498; G0378 ×2; Q9967

== ENCOUNTER 2023-02-14 02:13 | Observation (INO) | payer BC, MEDICARE ==
[2023-02-14 02:35] LABS: HGB 11.4 gm/dL (13.0-17.5); MCH 32.3 pg (25.0-35.0); MCHC 33.4 g/dL (31.0-37.0); MCV 96.4 fL (80.0-100.0); Mean Platelet Volume 6.9; Platelet Count 377 k/uL (150-450); RBC 3.53 m/uL (4.30-5.90); WBC 6.8 k/uL (3.8-10.6)
[2023-02-14] MEDS ORDERED: DEXAMETHASONE SOD PHOSPHATE 10 MG/ML 1 ML VIAL IVP STA (02:43)
[2023-02-14] MEDS ORDERED: ALBUTEROL NEBULIZED 2.5 MG/3 ML INHALATION STA (02:43)
[2023-02-14] MEDS ORDERED: IPRATROPIUM 0.5 MG/2.5 ML NEBU INHALATION STA (02:43)
--- NOTE | 2023-02-14 02:46 | ED ---
General Adult HPI - General Chief complaint: Chest Pain Stated complaint: chest pain Time Seen by Provider: 02/14/23 02:20 Source: patient, EMS Mode of arrival: EMS Limitations: no limitations - History of Present Illness Initial comments: This is a 72-year-old male with a past medical history including hypertension and COPD presents emergency department via EMS for chest discomfort and feeling "weak." The patient stated that around 10:30 PM he was on his way to work when he felt as if he had some chest discomfort in the middle of his chest without radiation. The patient stated he also felt as if his legs were weak and would give out any time. The patient stated that he did go into work but several hours into work, he called EMS for further evaluation and to be taken to the emergency department. On arrival, the patient stated that his chest pain was mostly resolved but had some minor pain in the center of his chest without radiation. The patient denied nausea, vomiting as well as any diaphoresis. The patient denied any further complaints currently was resting in bed comfortable. - Related Data Home Medications Medication Instructions Recorded Confirmed Budesonide-Formot 160-4.5 Mcg 2 puff INHALATION RT-BID 05/16/15 01/31/23 [Symbicort 160-4.5 Mcg Inhaler] Atorvastatin [Lipitor] 40 mg PO HS 11/21/19 01/31/23 Albuterol Sulfate [Albuterol 1 - 2 puff PO RT-Q6H PRN 01/31/23 01/31/23 Sulfate Hfa] Tiotropium [place] [Spiriva] 1 puff INHALATION RT-DAILY 01/31/23 01/31/23 carvediloL [Coreg] 6.25 mg PO BID-W/MEALS 01/31/23 01/31/23 Previous Rx's Medication Instructions Recorded Isosorbide Mononitrate ER [Imdur] 30 mg PO DAILY #30 tab.er.24h 03/24/18 hydrOXYzine HCL [Atarax] 25 mg PO TID PRN #20 tab 02/08/21 Aspirin 81 mg PO DAILY #30 tab 01/31/23 Clopidogrel [Plavix] 75 mg PO DAILY #21 tablet 01/31/23 Irbesartan 300 mg PO DAILY #30 tablet 01/31/23 Allergies Allergy/AdvReac Type Severity Reaction Status Date / Time No Known Allergies Allergy Verified 01/31/23 06:58 Review of Systems ROS Statement: Those systems with pertinent positive or pertinent negative responses have been documented in the HPI. ROS Other: All systems not noted in ROS Statement are negative. Past Medical History Past Medical History: COPD, Hearing Disorder / Deafness, Hypertension, Myocardial Infarction ([place]) Additional Past Medical History / Comment(s): chemical burn to arms d/t work related injury, asbestos exposure Last Myocardial Infarction Date:: 2016 History of Any Multi-Drug Resistant Organisms: None Reported Past Surgical History: Appendectomy, Back Surgery, Orthopedic Surgery Additional Past Surgical History / Comment(s): carpal tunel, knee sx Past Anesthesia/Blood Transfusion Reactions: No Reported Reaction Past Psychological History: No Psychological Hx Reported Smoking Status: Current some day smoker Past Alcohol Use History: None Reported Past Drug Use History: None Reported - Past Family History Father Family Medical History: Myocardial Infarction ([place]) Mother Family Medical History: CVA/TIA, Myocardial Infarction ([place]), Pneumonia General Exam Limitations: no limitations General appearance: alert, in no apparent distress Head exam: Present: atraumatic, normocephalic, normal inspection Eye exam: Present: normal appearance, PERRL Pupils: Present: normal accommodation ENT exam: Present: normal exam, normal oropharynx, mucous membranes moist Neck exam: Present: normal inspection, full ROM Respiratory exam: Present: wheezes (Expiratory wWheezes heard bilaterally) Cardiovascular Exam: Present: regular rate, normal rhythm, normal heart sounds GI/Abdominal exam: Present: soft, normal bowel sounds Extremities exam: Present: normal inspection, full ROM Back exam: Present: normal inspection, full ROM Neurological exam: Present: alert, oriented X3, CN II-XII intact Psychiatric exam: Present: normal affect, normal mood Skin exam: Present: warm, dry Course Vital Signs 02/14/23 02/14/23 02/14/23 02:18 03:13 03:23 Pulse Rate 68 72 72 Respiratory 18 Rate Blood Pressure 153/93 O2 Sat by Pulse 97 Oximetry 02/14/23 02/14/23 02/14/23 03:25 03:37 04:37 Pulse Rate 77 78 69 Respiratory 16 Rate Blood Pressure 153/93 O2 Sat by Pulse 96 Oximetry EKG Findings - EKG Comments: EKG Findings:: An EKG was obtained and was interpreted by myself showing a rate of 69, OH interval 173, QRS duration of 103 and QTC of 429. This EKG showed a normal sinus rhythm with no ST segment elevation or depression noted. There was an occasional PVC. Medical Decision Making - Medical Decision Making Was pt. sent in by a medical professional or institution ([facility]HA Clark, [employer]DENSER [employer]AN[employer], urgent care, hospital, or residential...) When possible be specific @ -No Did you speak to anyone other than the patient for history (EMS, parent, family, police, friend...)? What history was obtained from this source @ -No Did you review nursing and triage notes (agree or disagree)? Why? @ -I reviewed and agree with nursing and triage notes Were old charts reviewed (outside hosp., previous admission, EMS record, old EKG, old radiological studies, urgent care reports/EKG's, residential records)? Report findings @ -No old charts were reviewed Differential Diagnosis (chest pain, altered mental status, abdominal pain women, abdominal pain men, vaginal bleeding, weakness, fever, dyspnea, syncope, headache, dizziness, GI bleed, back pain, seizure, CVA, palpatations, mental health)? @ -ACS, pneumonia, PE, COPD exacerbation EKG interpreted by me (3pts min.). @ -As above X-rays interpreted by me (1pt min.). @ -Chest x-ray was obtained and was interpreted by myself showing no acute process. CT interpreted by me (1pt min.). @ -None done U/S interpreted by me (1pt. min.). @ -None done What testing was considered but not performed or refused? (CT, X-rays, U/S, labs)? Why? @ -None What meds were considered but not given or refused? Why? @ -None Did you discuss the management of the patient with other professionals (professionals i.e. LAKESHA Clark, CONDENSER CLEANER, lab, RT, psych nurse, social media executive, gun synchronizer, teacher, grant officer, geriatric case manager)? Give summary @ -Yes, admitting physician was contacted regarding placing the patient obse rvation. Was smoking cessation discussed for >3mins.? @ -No Was critical care preformed (if so, how long)? @ -No Were there social determinants of health that impacted care today? How? (Homelessness, low income, unemployed, alcoholism, drug addiction, transportation, low edu. Level, literacy, decrease access to med. care, senior care, rehab)? @ -No Was there de-escalation of care discussed even if they declined (Discuss DNR or withdrawal of care, Hospice)? DNR status @ -No What co-morbidities impacted this encounter? (DM, HTN, Smoking, COPD, CAD, Cancer, CVA, ARF, Chemo, Hep., AIDS, mental health diagnosis, sleep apnea, morbid obesity)? @ -HTN, COPD Was patient admitted / discharged? Hospital course, mention meds given and route, prescriptions, significant lab abnormalities, going to OR and other pertinent info. @ -The patient was seen and evaluated emergency department. Physical exam, the patient was resting in bed without any acute distress. Vital signs admission were stable. Laboratory workup on evaluation as well as chest x-ray and EKG were negative. The patient did have wheezing on auscultation and was given a breathing treatment of albuterol, ipratropium and Decadron. On reevaluation, the patient stated that his symptoms had improved however he was still concerned about his chest discomfort. Due to this, the patient was placed in observation with cardiology on consult. The patient was agreeable to this and all his questions were answered. The patient was placed observation in stable condition. Undiagnosed new problem with uncertain prognosis? @ -No Drug Therapy requiring intensive monitoring for toxicity (Heparin, Nitro, Insulin, Cardizem)? @ -No Were any procedures done? @ -No Diagnosis/symptom? @ -Chest pain, rule out ACS Acute, or Chronic, or Acute on Chronic? @ -Acute Uncomplicated (without systemic symptoms) or Complicated (systemic symptoms)? @ -Complicated Side effects of treatment? @ -No Exacerbation, Progression, or Severe Exacerbation? @ -No Poses a threat to life or bodily function? How? (Chest pain, [place], [place], pneumonia, PE, COPD, DKA, ARF, appy, cholecystitis, CVA, Diverticulitis, Homicidal, Lucia cidal, threat to staff... and all critical care pts) @ -Yes, chest pain and ACS can lead to permanent damage and possible . - Lab Data Result diagrams: 02/14/23 02:25 02/14/23 02:25 Lab Results 02/14/23 02/14/23 02/14/23 Range/Units 02:25 02:25 02:25 WBC 6.8 (3.8-10.6) k/uL RBC 3.53 L (4.30-5.90) m/uL Hgb 11.4 L (13.0-17.5) gm/dL Hct 34.0 L (39.0-53.0) % MCV 96.4 (80.0-100.0) fL MCH 32.3 (25.0-35.0) pg MCHC 33.4 (31.0-37.0) g/dL RDW 14.0 (11.5-15.5) % Plt Count 377 (150-450) k/uL MPV 6.9 Neutrophils % (Manual) 63 % Band Neuts % (Manual) 1 % Lymphocytes % (Manual) 14 % Monocytes % (Manual) 12 % Eosinophils % (Manual) 10 % Neutrophils # (Manual) 4.30 (1.3-7.7) k/uL Lymphocytes # (Manual) 0.95 L (1.0-4.8) k/uL Monocytes # (Manual) 0.82 (0-1.0) k/uL Eosinophils # (Manual) 0.68 (0-0.7) k/uL Nucleated RBCs 0 (0-0) /100 WBC Manual Slide Review Performed Sodium 130 L (137-145) mmol/L Potassium 4.0 (3.5-5.1) mmol/L Chloride 97 L (98-107) mmol/L Carbon Dioxide 24 (22-30) mmol/L Anion Gap 9 mmol/L BUN 31 H (9-20) mg/dL Creatinine 1.25 (0.66-1.25) mg/dL Est GFR (CKD-EPI)AfAm 67 (>60 ml/min/1.73 sqM) Est GFR (CKD-EPI)NonAf 58 (>60 ml/min/1.73 sqM) Glucose 125 H (74-99) mg/dL Calcium 7.9 L (8.4-10.2) mg/dL Magnesium 2.2 (1.6-2.3) mg/dL Total Bilirubin 0.5 (0.2-1.3) mg/dL AST 29 (17-59) U/L ALT 26 (4-49) U/L Alkaline Phosphatase 71 (38-126) U/L Troponin I <0.012 (0.000-0.034) ng/mL NT-Pro-B Natriuret Pep pg/mL Total Protein 5.6 L (6.3-8.2) g/dL Albumin 3.2 L (3.5-5.0) g/dL Lipase 101 (23-300) U/L 02/14/23 Range/Units 02:25 WBC (3.8-10.6) k/uL RBC (4.30-5.90) m/uL Hgb (13.0-17.5) gm/dL Hct (39.0-53.0) % MCV (80.0-100.0) fL MCH (25.0-35.0) pg MCHC (31.0-37.0) g/dL RDW (11.5-15.5) % Plt Count (150-450) k/uL MPV Neutrophils % (Manual) % Band Neuts % (Manual) % Lymphocytes % (Manual) % Monocytes % (Manual) % Eosinophils % (Manual) % Neutrophils # (Manual) (1.3-7.7) k/uL Lymphocytes # (Manual) (1.0-4.8) k/uL Monocytes # (Manual) (0-1.0) k/uL Eosinophils # (Manual) (0-0.7) k/uL Nucleated RBCs (0-0) /100 WBC Manual Slide Review Sodium (137-145) mmol/L Potassium (3.5-5.1) mmol/L Chloride (98-107) mmol/L Carbon Dioxide (22-30) mmol/L Anion Gap mmol/L BUN (9-20) mg/dL Creatinine (0.66-1.25) mg/dL Est GFR (CKD-EPI)AfAm (>60 ml/min/1.73 sqM) Est GFR (CKD-EPI)NonAf (>60 ml/min/1.73 sqM) Glucose (74-99) mg/dL Calcium (8.4-10.2) mg/dL Magnesium (1.6-2.3) mg/dL Total Bilirubin (0.2-1.3) mg/dL AST (17-59) U/L ALT (4-49) U/L Alkaline Phosphatase (38-126) U/L Troponin I (0.000-0.034) ng/mL NT-Pro-B Natriuret Pep 740 pg/mL Total Protein (6.3-8.2) g/dL Albumin (3.5-5.0) g/dL Lipase (23-300) U/L Disposition Clinical Impression: Chest pain Disposition: ADMITTED IP TO THIS HOSP Condition: Stable Is patient prescribed a controlled substance at d/c from ED?: No Referrals: Vasquez Alicea MD [Primary Care Provider] - 1-2 days Time of Disposition: 05:30 Decision to Admit Reason: Admit from EC Decision Date: 02/14/23 Decision Time: 05:30
[2023-02-14 03:13] LABS: Albumin 3.2 g/dL (3.5-5.0); Calcium 7.9 mg/dL (8.4-10.2); Magnesium 2.2 mg/dL (1.6-2.3); Total Bilirubin 0.5 mg/dL (0.2-1.3); Total Protein 5.6 g/dL (6.3-8.2)
[2023-02-14 03:18] LABS: Band Neutrophils % 1 %; Eosinophils # (M) 0.68 k/uL (0-0.7); Lymphocytes # (M) 0.95 k/uL (1.0-4.8); Monocytes # (M) 0.82 k/uL (0-1.0); Neutrophils % (M) 63 %; Nucleated Red Blood Cells 0 /100 WBC (0-0); Total Cells Counted 100
--- NOTE | 2023-02-14 05:03 | XR ---
EXAM: XR Chest, 2 Views CLINICAL HISTORY: ITS.REASON XR Reason: CP TECHNIQUE: Frontal and lateral views of the chest. COMPARISON: 01/31/2023 FINDINGS: Lungs: Unremarkable. No consolidation. Pleural space: Unremarkable. No pneumothorax. Unchanged calcified bilateral pleural plaques. Heart: Unremarkable. No cardiomegaly. Mediastinum: Unremarkable. Bones/joints: Unremarkable. IMPRESSION: No acute pulmonary process.
[2023-02-14] MEDS ORDERED: NALOXONE 0.4 MG/ML 1 ML VIAL IV PRN (05:38)
[2023-02-14] MEDS ORDERED: TRIAMCINOLONE 0.1% CREAM 80 GM TUBE TOPICAL PRN (10:00)
[2023-02-14] MEDS ORDERED: DOBUTamine DRIP for NUC MED 500 MG in DEXTROSE/WATER 1 250ML.BAG IV PRN (10:00)
[2023-02-14] MEDS ORDERED: ALBUTEROL NEBULIZED 2.5 MG/3 ML INHALATION PRN (10:00)
[2023-02-14] MEDS ORDERED: SYMBICORT 160-4.5 MCG INHALER INHALATION SCH (10:01)
[2023-02-14] MEDS ORDERED: ISOSORBIDE MONONITRATE ER 30 MG TAB.ER.24H PO SCH (10:15)
[2023-02-14] MEDS ORDERED: DOBUTamine DRIP for NUC MED 500 MG/250 ML BAG IV ONE (11:13)
--- NOTE | 2023-02-14 11:42 | CA ---
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 Total Dobutamine infused is 15.08 mgs and 9:25 Cardiac Symptoms: None ECG Analysis Resting EKG: Stress EKG: Arrhythmia: Echo Analysis Base Echo Analysis: Low Echo Anaylsis: Peak Echo Analysis: Recovery Echo: MEASUREMENTS (Male/Female) Normal Values CONCLUSIONS Baseline EKG revealed a normal sinus rhythm without significant ST-T changes. With the dobutamine administration the heart rate went up from 79-133 bpm which is more than 85% of predicted maximal. Patient was asymptomatic. There was no significant arrhythmia. Isolated PVCs were noted. There were no ST segment changes to indicate ischemia. This is a unremarkable dobutamine stress test by EKG criteria Baseline echo images revealed normal wall motion wall thickening. Ejection fraction is at the low range of normal. With the dobutamine administration that was progressive increase in contractility of all segments suggesting that there is no evidence of any stress-induced ischemia on this study. Final impression #1: This is a unremarkable dobutamine stress test by EKG criteria without any angina, arrhythmia or ST segment changes to indicate ischemia #2: This is a unremarkable dobutamine stress echo without evidence of ischemia. There was good augmentation of left ventricular contractility in all segments with the dobutamine administration progressively. There is no evidence suggest any ischemia on this dobutamine stress echocardiogram. Dr. Suzan Osorio MD (Electronically Signed) Final Date: 14 Feb 2023 11:41
--- NOTE | 2023-02-14 11:46 | CONS ---
CONSULTATION HISTORY OF PRESENT ILLNESS: This is a 72-year-old gentleman, who sees Dr. Hunter. His primary care physician is Dr. Alicea. He has history of calcified noncritical CAD. This gentleman continues to smoke. He has calcified coronaries with a significant disease in the small nondominant RCA, calcified LAD, and circumflex with [id number] disease, normal systolic function. This is based on a cardiac cath from March 2018. However, this gentleman's EKG today revealed sinus mechanism, no acute changes. There are some PACs noted. He came into the hospital last night with complaints of what he described as shortness of breath and also complained of some chest tightness in the middle of the chest without radiation and he felt he had weakness in the legs, did not have strength. He did not go into work. These symptoms have all resolved. Two sets of troponins are normal. EKG does not reveal acute changes. He is resting comfortably without symptoms. PAST MEDICAL HISTORY: 1. Moderate calcified noncritical coronary artery disease based on cardiac cath from 2017. 2. Smoking and COPD. 3. Hypertension. 4. History of back surgery, appendectomy, and some orthopedic surgery. MEDICATIONS: Medications at home include, 1. Imdur 30 mg daily. 2. Atarax. 3. Aspirin. 4. Plavix 75 mg daily. 5. Irbesartan 300 mg daily. 6. Atorvastatin 40 mg daily inhalers. 7. Also takes Coreg 6.25 mg b.i.d. PHYSICAL EXAMINATION: VITAL SIGNS: Blood pressure is 150/70, pulse rate is 70 per minute, regular. HEENT: Unremarkable. Fundus was not examined by me. NECK: Supple. No JVD. I do not hear a carotid bruit. HEART: Reveals S1, S2 with a short systolic murmur at the left lower sternal border. LUNGS: Clear. ABDOMEN: Soft, nontender. EXTREMITIES: Lower extremities reveal diminished pulses. CENTRAL NERVOUS SYSTEM: Reveals no significant abnormalities. No focal motor deficits. LABORATORY DATA: EKG revealed sinus mechanism, no acute changes. Minor nonisolated PACs. IMPRESSION: 1. Chest pain syndrome, cannot exclude angina. Troponins are normal. 2. Hypertension. 3. Hyperlipidemia. 4. Smoking and chronic obstructive pulmonary disease. RECOMMENDATIONS: I have advised him regarding the importance of smoking cessation. We will resume his medications, perform a dobutamine echo today and if this study is normal, he can be discharged and follow with Dr. Hunter in the office. If it is abnormal, we will perform coronary angiography. I discussed my thoughts in detail with the patient. Thank you very much for the consult. CHARMAINE / IRVIN: [id number] /
[2023-02-14 11:47] VITALS: PULSE 73
[2023-02-14] MEDS ORDERED: CLOPIDOGREL 75 MG TAB PO SCH (12:30)
[2023-02-14] MEDS ORDERED: ASPIRIN 81 MG PO SCH (12:30)
[2023-02-14] MEDS ORDERED: LOSARTAN 50 MG TAB PO SCH (12:30)
[2023-02-14] MEDS ORDERED: SODIUM CHLORIDE 0.9% 1,000 ML IV SCH (12:45)
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
[2023-02-14 16:50] VITALS: BP 155/99; RESP 19; TEMP 97.7
[2023-02-14] MEDS ORDERED: carvediloL 6.25 MG TAB PO SCH (17:30)
[2023-02-14] MEDS ORDERED: ATORVASTATIN 40 MG TAB PO SCH (21:00)
[2023-02-15] MEDS ORDERED: IPRATROPIUM 0.5 MG/2.5 ML NEBU INHALATION SCH (08:00)
--- NOTE | 2023-02-15 10:38 | CA ---
Transthoracic Echo Report Name: Jeremy Melendez Age: 72 Gender: M : 1950 Exam Date: 02/14/2023 11:16 Exam Location: [place] [facility] Ht (in): 71 Wt (lb): 170 Ordering Physician: Yesenia Avelar Attending/Referring Phys: [id number], Valentino Concrete Puddler Christen Arnold RDCS Procedure CPT: Indications: LVF Cardiac Hx: Technical Quality: Contrast 1: Total Dose (mL): Contrast 2: Total Dose (mL): MEASUREMENTS (Male / Female) Normal Values 2D ECHO LV Diastolic Diameter PLAX 5.0 cm 4.2 - 5.9 / 3.9 - 5.3 cm LV Systolic Diameter PLAX 3.2 cm IVS Diastolic Thickness 1.2 cm 0.6 - 1.0 / 0.6 - 0.9 cm LVPW Diastolic Thickness 1.2 cm 0.6 - 1.0 / 0.6 - 0.9 cm LV Relative Wall Thickness 0.5 RV Internal Dim ED PLAX 3.1 cm LVOT Diameter 2.8 cm LA Systolic Diameter LX 4.6 cm 3.0 - 4.0 / 2.7 - 3.8 cm LV Diastolic Volume MOD 4C 115.4 cm??? LV Systolic Volume MOD 4C 53.7 cm??? LV Ejection Fraction MOD 4C 53.5 % LV Diastolic Length 4C 7.7 cm LV Systolic Length 4C 6.1 cm LV Diastolic Volume MOD 2C 115.4 cm??? LV Systolic Volume MOD 2C 40.0 cm??? LV Ejection Fraction MOD 2C 65.3 % LV Diastolic Length 2C 8.5 cm LV Systolic Length 2C 7.1 cm LA Volume 80.3 cm??? 18 - 58 / 22 - 52 cm??? M-MODE Aortic Root Diameter MM 3.8 cm MV E Point Septal Separation 0.5 cm AV Cusp Separation MM 1.8 cm DOPPLER AV Peak Velocity 166.3 cm/s AV Peak Gradient 11.1 mmHg AV Mean Velocity 110.4 cm/s AV Mean Gradient 5.8 mmHg AV Velocity Time Integral 40.0 cm LVOT Peak Velocity 110.4 cm/s LVOT Peak Gradient 4.9 mmHg AV Area Cont Eq pk 4.0 cm??? MV Area PHT 3.5 cm??? Mitral E Point Velocity 119.8 cm/s Mitral A Point Velocity 141.3 cm/s Mitral E to A Ratio 0.8 MV Deceleration Time 219.0 ms MV E' Velocity 4.9 cm/s Mitral E to MV E' Ratio 24.6 TR Peak Velocity 280.9 cm/s TR Peak Gradient 31.6 mmHg Right Ventricular Systolic Press 36.6 mmHg FINDINGS Left Ventricle Left ventricular ejection fraction is estimated at 55-60 %. Left ventricular cavity size normal. Mild concentric left ventricular hypertrophy. No obvious regional wall motion abnormalities. Right Ventricle Normal right ventricular size and function. Mild pulmonary hypertension. Right Atrium Normal right atrial size. Left Atrium Mildly increased left atrial diameter. Severely increased left atrial volume. Mildly increased left atrial area. Mitral Valve Mitral valve thickened. Moderate mitral annular calcification. Mitral valve thickened. Trace mitral regurgitation. . Aortic Valve Aortic valve sclerosis. Trace to mild aortic regurgitation. Tricuspid Valve Structurally normal tricuspid valve. Mild tricuspid regurgitation. Pulmonic Valve Structurally normal pulmonic valve. Trace pulmonic regurgitation. Pericardium Normal pericardium. No pericardial effusion. Aorta Mild aortic dilatation at the level of the sinuses of valsalva 38 mm CONCLUSIONS Normal LV size and systolic function with mild concentric LVH. Both atria are enlarged more so of the left atrium. Moderate mitral and the calcification mild mitral regurgitation trivial aortic regurgitation mild tricuspid regurgitation no significant pulmonary hypertension. No pericardial effusion Previewed by: Dr. Suzan Osorio MD (Electronically Signed) Final Date: 15 Feb 2023 10:38
--- NOTE | 2023-02-16 01:53 | P.DS ---
Providers Date of admission: 02/14/23 05:38 Expected date of discharge: 02/14/23 Attending physician: Jordan Conn Consults: 02/14/23 05:38 Consult Physician Routine Consulting Provider: [facility] Consult Reason/Comments: CP r/o ACS Do you want consulting provider notified?: Yes, Notify in am Primary care physician: Vasquez Alicea Hospital Course: Final diagnosis chest pain, ruled out ACS, stress test was negative Hyponatremia, hypovolemic Hypertension COPD, not in exacerbation Continued ongoing nicotine dependence GI prophylaxis DVT prophylaxis Full code Discharge disposition Patient is being discharged in a stable condition with guarded prognosis to home. Patient will follow-up with Dr. Alicea in the outpatient setting upon discharge. Patient is to continue with close outpatient follow-up with cardiology as scheduled. Recommend repeat labs to monitor BMP and sodium level in the outpatient setting in 2-3 days. Total time taken is greater than 35 minutes. Hospital course This is a 72-year-old male who was recently admitted with chest pain and being closely monitored. Patient was evaluated by cardiology recommended stress testing which was negative. Patient was found to have hyponatremia, most likely hypovolemic and was given fluid bolus recommending outpatient follow-up with labs in the next 2-3 days. Prescription was provided patient also instructed to follow-up with primary care provider discharge. Please refer to cardiology no for further HPI. Currently no reports of chest pain, shortness of breath, or palpitations. Patient is afebrile. No reports of nausea or vomiting and patient is tolerating diet. Patient will be discharged home today. Patient appears to be high risk for readmissions as patient has noncompliance with continued nicotine use and frequent emergency room visits most recently. Physical exam: Gen: This is a 72-year-old male who is awake, alert and oriented 3, thin built, elderly appearing HEENT: Head is atraumatic, normocephalic. Pupils equal, round. Sclerae is anicteric. NECK: Supple. No JVD. No lymphadenopathy. No thyromegaly. LUNGS: Clear to auscultation. No wheezes or rhonchi. No intercostal retractions. HEART: Regular rate and rhythm. No murmur. ABDOMEN: Soft. Bowel sounds are present. No masses. No tenderness. EXTREMITIES: No pedal edema. No calf tenderness. NEUROLOGICAL: Patient is awake, alert and oriented x3. Cranial nerves 2 through 12 are grossly intact. Please refer to medication reconciliation sheet for a list of medications. The impression and plan of care has been dictated by Hilaria Galvin, Nurse Practitioner as directed. Dr. Shahbaz MD I have performed a history and examination and MDM of this patient, discussed the same with the dictator, and agree with the dictator's assessment and plan as written ,documented as a scribe. Based on total visit time, I have performed more than 50% of the visit. Patient Condition at Discharge: Stable Plan - Discharge Summary New Discharge Prescriptions: Continue Budesonide-Formot 160-4.5 Mcg [Symbicort 160-4.5 Mcg Inhaler] 2 puff INHALATION RT-BID Isosorbide Mononitrate ER [Imdur] 30 mg PO DAILY #30 tab.er.24h Atorvastatin [Lipitor] 40 mg PO HS carvediloL [Coreg] 6.25 mg PO BID-W/MEALS Albuterol Sulfate [Albuterol Sulfate Hfa] 1 - 2 puff INHALATION RT-Q6H PRN PRN Reason: Shortness Of Breath Tiotropium [place] [Spiriva Handihaler] 1 puff INHALATION RT-DAILY Irbesartan 300 mg PO DAILY #30 tablet Aspirin 81 mg PO DAILY #30 tab Clopidogrel [Plavix] 75 mg PO DAILY #21 tablet Triamcinolone 0.1% Cream [Kenalog 0.1% Cream] 1 applic TOPICAL BID PRN PRN Reason: Rash hydrOXYzine HCL [Atarax] 25 mg PO TID PRN #20 tab PRN Reason: Itching Discharge Medication List Budesonide-Formot 160-4.5 Mcg [Symbicort 160-4.5 Mcg Inhaler] 2 puff INHALATION RT-BID 05/16/15 [History] Isosorbide Mononitrate ER [Imdur] 30 mg PO DAILY #30 tab.er.24h 03/24/18 [Rx] Atorvastatin [Lipitor] 40 mg PO HS 11/21/19 [History] hydrOXYzine HCL [Atarax] 25 mg PO TID PRN #20 tab 02/08/21 [Rx] Albuterol Sulfate [Albuterol Sulfate Hfa] 1 - 2 puff INHALATION RT-Q6H PRN 01/31/23 [History] Aspirin 81 mg PO DAILY #30 tab 01/31/23 [Rx] Clopidogrel [Plavix] 75 mg PO DAILY #21 tablet 01/31/23 [Rx] Irbesartan 300 mg PO DAILY #30 tablet 01/31/23 [Rx] Tiotropium [place] [Spiriva Handihaler] 1 puff INHALATION RT-DAILY 01/31/23 [History] carvediloL [Coreg] 6.25 mg PO BID-W/MEALS 01/31/23 [History] Triamcinolone 0.1% Cream [Kenalog 0.1% Cream] 1 applic TOPICAL BID PRN 02/14/23 [History] Follow up Appointment(s)/Referral(s): Vasquez Alicea MD [Primary Care Provider] - 1-2 days Jorge Luis Hunter MD [STAFF PHYSICIAN] - 1 Week Ambulatory/Diagnostic Orders: Basic Metabolic Panel [LAB.AMB] Time Frame: 3 Days, Location: None Selected Patient Instructions/Handouts: Chest Pain (DC) Activity/Diet/Wound Care/Special Instructions: Activity Limited until follow-up Follow-up with cardiology outpatient in one week Continue taking medications as prescribed Follow-up with repeat labs in the next few days to monitor sodium levels Follow-up primary care provider on discharge Discharge Disposition: HOME SELF-CARE
== END 2023-02-14 16:50 | disposition home or self-care (01) ==
LOC: EC 02:13 → 6NMEDSUR 05:38
PROVIDERS: ADMIT Hospitalist; ATTEND Hospitalist
DX: R07.9 Chest pain, unspecified (principal); E87.1 Hypo-osmolality and hyponatremia; E86.1 Hypovolemia; I25.10 Atherosclerotic heart disease of native coronary artery without angina pectoris; I10 Essential (primary) hypertension; R53.1 Weakness; E78.5 Hyperlipidemia, unspecified; J44.9 Chronic obstructive pulmonary disease, unspecified; F17.200 Nicotine dependence, unspecified, uncomplicated; I25.2 Old myocardial infarction; H91.90 Unspecified hearing loss, unspecified ear; Z77.090 Contact with and (suspected) exposure to asbestos; Z98.890 Other specified postprocedural states; Z82.49 Family history of ischemic heart disease and other diseases of the circulatory system; Z83.6 Family history of other diseases of the respiratory system; Z79.82 Long term (current) use of aspirin; Z79.51 Long term (current) use of inhaled steroids; Z79.899 Other long term (current) drug therapy; Z79.02 Long term (current) use of antithrombotics/antiplatelets
CPT/HCPCS: 96374; 99285; 36415; 94640 ×2; 93005; 93306; 93351; 83880; 80053; 83690; 83735; 84484; 85025; 71046; G0378; J1100

== ENCOUNTER → 2023-12-16 | Outpatient (CLI) | payer MEDICARE ==
--- NOTE | 2023-12-16 14:23 | CTL ---
EXAMINATION TYPE: CT Low Dose Lung DATE OF EXAM ORDERED: 12/16/2023 HISTORY: . Lung cancer screening CT DLP: 82.[address] CTDI: 2.1 mGy Automated exposure control for dose reduction was used. SCREENING VISIT: Follow-up. COMPARISON: 01/05/2023. TECHNIQUE: Low dose computed tomography scan was performed through the chest at 1 mm thick sections a nd reconstructed images in multiple planes at 1 mm and [address] DIAGNOSTIC QUALITY: Satisfactory FINDINGS: Mediastinum and Alyce: There is no axillary, mediastinal or hilar lymphadenopathy. Pleural and Pericardial spaces: There significant calcified pleural plaques seen throughout the lungs bilaterally which can be seen in the setting of prior specimens exposure and are unchanged. Upper Abdomen: The visualized upper abdomen is unremarkable. Cardiovascular: The thoracic aorta show significant vascular calcification without evidence of aneury smal dilation. Moderate to severe coronary artery calcifications are also seen. Pulmonary Artery: The pulmonary arteries are normal in size. Lung Parenchyma and Airways: There is moderate diffuse centrilobular emphysema. There is a 7.3 mm nod ule in the left lower lobe on series 4 image 258 which is unchanged.. There are scattered bands of op acity which are likely related to atelectasis or scarring. Bones: No fracture or aggressive osseous lesion. IMPRESSION: 1. Unchanged left lower lobe nodule. 2. Extensive calcified pleural plaques can be seen in the setting of prior specificity exposure. 3. Emphysema. CT LUNG RAD AND CT CHEST RECOMMENDATION: Lung-Rad 2 Benign Appearance or Behavior: Continue annual sc reening with LDCT in 12 months.
== END | disposition home or self-care (01) ==
LOC: RADCTMAIN 12:42
PROVIDERS: ATTEND Internal Medicine Critical Care Medicine
DX: Z12.2 Encounter for screening for malignant neoplasm of respiratory organs (principal); F17.210 Nicotine dependence, cigarettes, uncomplicated; J43.2 Centrilobular emphysema; R91.1 Solitary pulmonary nodule; J92.9 Pleural plaque without asbestos
CPT/HCPCS: 71271

== ENCOUNTER 2024-04-29 02:57 | Emergency (ER) | payer MEDICARE ==
[2024-04-29 03:21] VITALS: TEMP 97.9
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
[2024-04-29] MEDS: MORPHINE SULFATE 4 MG/ML SYRINGE IM STA (03:46)
--- NOTE | 2024-04-29 04:37 | XR ---
EXAM: XR Left Ribs and AP Chest, 3 or More Views CLINICAL HISTORY: ITS.REASON XR Reason: fall injury TECHNIQUE: Frontal and oblique views of the left ribs and frontal view of the chest. COMPARISON: None FINDINGS: Lungs: Unremarkable. No consolidation. Pleural space: Calcified pleural plaques bilaterally. No pneumothorax. Heart: Unremarkable. No cardiomegaly. Mediastinum: Unremarkable. Normal mediastinal contour. Bones/joints: No displaced fracture identified. Further evaluation could be performed with CT if clinically indicated. Degenerative changes of the spine. IMPRESSION: No displaced fracture identified. Further evaluation could be performed with CT if clinically indicated.
[2024-04-29 05:17] VITALS: BP 107/64; PULSE 62; RESP 18
== END 2024-04-29 05:32 | disposition home or self-care (01) ==
LOC: EC 02:57
DX: S29.9XXA Unspecified injury of thorax, initial encounter (principal); F17.200 Nicotine dependence, unspecified, uncomplicated; W18.30XA Fall on same level, unspecified, initial encounter
CPT/HCPCS: 71101; 99283; 96372; J2270

== ENCOUNTER 2024-08-23 05:44 | Inpatient (IN) | payer MEDICARE ==
[2024-08-23] MEDS: IPRATROPIUM-ALBUTEROL 3 ML NEB INHALATION STA (05:54)
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
[2024-08-23] MEDS: MAGNESIUM SULFATE-D5W PMX 1 GM in DEXTROSE/WATER 1 100ML.BAG IVPB STA (06:02)
[2024-08-23 06:12] LABS: Basophils % (A) 0 %; Eosinophils # (A) 0.2 k/uL (0-0.7); Eosinophils % (A) 1 %; HCT 35.2 % (39.0-53.0); HGB 11.5 gm/dL (13.0-17.5); Hypochromasia Slight; Lymphocytes # (A) 0.4 k/uL (1.0-4.8); Lymphocytes % (A) 3 %; MCH 32.5 pg (25.0-35.0); MCHC 32.8 g/dL (31.0-37.0); MCV 99.1 fL (80.0-100.0); Mean Platelet Volume 6.5; Monocytes # (A) 0.6 k/uL (0-1.0); Monocytes % (A) 6 %; Neutrophils # (A) 9.9 k/uL (1.3-7.7); Neutrophils % (A) 89 %; Platelet Count 205 k/uL (150-450); RBC 3.56 m/uL (4.30-5.90); RDW 13.3 % (11.5-15.5); WBC 11.1 k/uL (3.8-10.6)
[2024-08-23 06:20] LABS: Partial Thromboplastin Time 26.1 sec (22.0-30.0); Prothrombin Time 11.3 sec (10.0-12.5)
[2024-08-23 06:21] LABS: ALT 23 U/L (4-49); AST 26 U/L (17-59); African American GFR (CKD) 90 (>60 ml/min/1.73 sqM); Albumin 2.9 g/dL (3.5-5.0); Alkaline Phosphatase 67 U/L (38-126); Anion Gap 0 mmol/L; Blood Urea Nitrogen 22 mg/dL (9-20); Calcium 7.9 mg/dL (8.4-10.2); Carbon Dioxide 32 mmol/L (22-30); Chloride 100 mmol/L (98-107); Glucose 101 mg/dL (74-99); Magnesium 2.2 mg/dL (1.6-2.3); Non-African American GFR(CKD) 78 (>60 ml/min/1.73 sqM); Potassium 4.4 mmol/L (3.5-5.1); Sodium 132 mmol/L (137-145); Total Bilirubin 1.3 mg/dL (0.2-1.3); Total Protein 5.2 g/dL (6.3-8.2)
[2024-08-23 06:30] LABS: NT-Pro-B-Type Natriuretic Pept 1330 pg/mL
--- NOTE | 2024-08-23 06:35 | XR ---
EXAMINATION TYPE: XR chest 2V DATE OF EXAM: 08/23/2024 CLINICAL HISTORY: Difficulty in breathing TECHNIQUE: Frontal and lateral views of the chest are obtained. COMPARISON: Chest x-ray April 29, 2024 and older studies FINDINGS: Calcified pleural plaques bilaterally are redemonstrated in the upper lungs. There is more prominent right mid lung opacity on current study. There is mild cardiomegaly and current study. Th e osseous structures are intact. IMPRESSION: Mild cardiomegaly with new right midlung acute infiltrate and/or atelectasis. [facility], , 08/23/2024 6:33 AM
[2024-08-23] MEDS ORDERED: PNEUMONIA PROTOCOL UTILIZED 1 EACH MISC PO PRN (06:38)
[2024-08-23] MEDS ORDERED: NALOXONE 0.4 MG/ML 1 ML VIAL IV PRN (06:42)
[2024-08-23] MEDS ORDERED: ONDANSETRON 4 MG/2 ML VIAL IVP PRN (06:42)
[2024-08-23] MEDS: SODIUM CHLORIDE 0.9% 1,000 ML IV STA (06:55)
[2024-08-23] MEDS: methylPREDNISolone SOD SUCCI 40 MG/ML 1 ML VIAL IV SCH (09:12)
[2024-08-23] MEDS: HEPARIN SODIUM,PORCINE 5,000 UNIT/ML 1 ML VIAL SQ SCH (09:23)
[2024-08-23] MEDS: AZITHROMYCIN 500 MG in SODIUM CHLORIDE 0.9% 250 ML IVPB STA (09:27)
[2024-08-23] MEDS ORDERED: ALBUTEROL HFA INHALER INHALATION PRN (10:13)
[2024-08-23] MEDS: ATORVASTATIN 40 MG TAB PO SCH (10:43)
[2024-08-23] MEDS: APIXABAN 5 MG TAB PO SCH (10:43)
[2024-08-23] MEDS: ISOSORBIDE MONONITRATE ER 30 MG TAB.ER.24H PO SCH (10:43)
[2024-08-23] MEDS: carvediloL 12.5 MG TAB PO SCH (10:43)
[2024-08-23] MEDS: LOSARTAN 50 MG TAB PO SCH (10:44)
[2024-08-23] MEDS: prednisoLONE ACETATE 1% OPHTH DROPS 5 ML BTL BOTH EYES SCH (10:45)
[2024-08-23] MEDS: methylPREDNISolone SOD SUCCI 125 MG/2 ML VIAL IV SCH (13:31)
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
[2024-08-23] MEDS: IPRATROPIUM 0.5 MG/2.5 ML NEBU INHALATION SCH (16:24)
[2024-08-23] MEDS: IPRATROPIUM-ALBUTEROL 3 ML NEB INHALATION PRN (16:26)
[2024-08-23] MEDS: ACETAMINOPHEN TAB 325 MG TAB PO PRN (18:59)
[2024-08-23] MEDS: SYMBICORT 160-4.5 MCG INHALER INHALATION SCH (19:37)
[2024-08-23] MEDS ORDERED: SYMBICORT 160-4.5 MCG INHALER INHALATION SCH (20:00)
[2024-08-24] MEDS: hydrALAZINE HCL 50 MG TAB PO STA (00:05)
[2024-08-24 06:07] VITALS: RESP 18
[2024-08-24] MEDS: PANTOPRAZOLE 40 MG TABLET PO SCH (08:14)
[2024-08-24] MEDS: AZITHROMYCIN 500 MG TAB PO SCH (08:15)
[2024-08-24] MEDS: predniSONE 20 MG TAB PO SCH (08:21)
--- NOTE | 2024-08-24 08:24 | XR ---
EXAMINATION TYPE: XR chest 1V portable DATE OF EXAM: 08/24/2024 5:34 AM COMPARISON: Chest radiographs from 08/23/2024 CLINICAL INDICATION: Male, 74 years old with history of pneumonia; TECHNIQUE: XR chest 1V portable Frontal view of the chest. FINDINGS: Lungs/Pleura: Improved aeration with persistent multifocal airspace opacities. No evidence of pneumot horax or pleural effusion. Scattered pleural calcifications. Pulmonary vascularity: Unremarkable. Heart/mediastinum: Cardiomediastinal silhouette is unremarkable. Musculoskeletal: No acute osseous pathology. Other findings: None IMPRESSION: Improved aeration of the right lung with persistent multifocal airspace opacities. [facility], , 08/24/2024 8:22 AM
[2024-08-24 10:32] LABS: Basophils # (A) 0.01 X 10*3/uL (0.00-0.10); Basophils % (A) 0.1 %; Eosinophils # (A) 0 X 10*3/uL (0.04-0.35); Eosinophils % (A) 0 %; HCT 34.8 % (39.6-50.0); HGB 11.3 g/dL (13.0-17.0); Lymphocytes # (A) 0.13 X 10*3/uL (0.90-5.00); Lymphocytes % (A) 0.9 %; MCH 31.8 pg (27.0-32.0); MCHC 32.5 g/dL (32.0-37.0); Mean Platelet Volume 9.2 FL (9.5-12.2); Monocytes # (A) 0.56 X 10*3/uL (0.20-1.00); Monocytes % (A) 3.9 %; NRBC Per 100 WBC 0 X 10*3/uL (0.00-0.01); Neutrophils # (A) 13.46 X 10*3/uL (1.80-7.70); Neutrophils % (A) 94.7 %; Platelet Count 208 X 10*3/uL (140-440); RBC 3.55 X 10*6/uL (4.40-5.60); RDW 13.5 % (11.5-14.5); WBC 14.22 X 10*3/uL (4.50-10.00)
[2024-08-24 10:45] LABS: ALT 22 U/L (10-49); AST 21 U/L (14-35); Albumin 3.6 g/dL (3.8-4.9); Albumin/Globulin Ratio 1.71 Ratio (1.60-3.17); Alkaline Phosphatase 81 U/L (41-126); Blood Urea Nitrogen 25.4 mg/dL (9.0-27.0); Calcium 8.4 mg/dL (8.7-10.3); Carbon Dioxide 24.8 mmol/L (21.6-31.8); Chloride 100 mmol/L (96-109); Globulin 2.1 g/dL (1.6-3.3); Glucose 124 mg/dL (70-110); Potassium 4.2 mmol/L (3.5-5.5); Sodium 136 mmol/L (135-145); Total Bilirubin 0.4 mg/dL (0.3-1.2); Total Protein 5.7 g/dL (6.2-8.2)
--- NOTE | 2024-08-24 12:13 | P.PN ---
Subjective Progress Note Date: 08/24/24 This is a pleasant 74-year-old male patient with a known history of chronic obstructive pulmonary disease, asbestos exposure, chronic and ongoing tobacco dependence, hypertension. He presented here to the emergency room early this morning with complaints of increasing shortness of breath, cough and congestion over the past several days. No fever or chills. No hemoptysis. No sick contacts. Chest x-ray reveals evidence of mild cardiomegaly with new right midlung acute infiltrate. White count 11.1. Hemoglobin 11.5. Platelets 205. Sodium 132. Potassium 4.4. Bicarb 32. BUN 22. Creatinine 0.97. Glucose 101. proBNP 1330. Viral screen negative. He is seen today in consultation in the emergency department. He is currently sitting up on a stretcher. Awake and alert in no acute distress. He does have a loose nonproductive cough. He is dyspneic with conversation. Dyspneic with minimal exertion. Maintaining good O2 saturations in the 90s on 3 L/min per nasal cannula. The patient is seen today August 24, 2024 in follow-up in the emergency department. He is currently sitting up on a stretcher. Awake and alert in no acute distress. Feeling quite a bit better today compared to yesterday. Good O2 saturations in the 90s on 2 L/min per nasal cannula. His procalcitonin was negative at 0.24. His antibiotics will be discontinued. He remains on bronchodilators, Solu-Medrol. Anticoagulated with Eliquis. White count 14.2. Hemoglobin 11.3. Platelets 208. Sodium 136. Potassium 4.2. Bicarb 25. BUN 25. Creatinine 1.0. Glucose 124. Chest x-ray shows improved aeration of the right lung. Objective - Vital Signs Vital signs: Vital Signs Temp 97.7 F 08/23/24 21:00 Pulse 102 H 08/24/24 11:50 Resp 18 08/24/24 07:50 BP 156/109 08/24/24 07:50 Pulse Ox 99 08/24/24 07:50 FiO2 Intake & Output 08/23/24 08/24/24 08/24/24 18:59 06:59 18:59 Output Total 1000 Balance -1000 Output: Urine 1000 Other: # Voids 2 - Exam GENERAL EXAM: Alert, oriented 74-year-old male, on 2 L nasal cannula, comfortable in no apparent distress. HEAD: Normocephalic. EYES: Normal reaction of pupils, equal size. NOSE: Clear with pink turbinates. THROAT: No erythema or exudates. NECK: No masses, no JVD. CHEST: No chest wall deformity. LUNGS: Equal air entry with bilateral scattered rhonchi right greater than left. CVS: S1 and S2 normal with no audible murmur, regular rhythm. ABDOMEN: No hepatosplenomegaly, normal bowel sounds, no guarding or rigidity. SPINE: No scoliosis or deformity SKIN: No rashes CENTRAL NERVOUS SYSTEM: No focal deficits, tone is normal in all 4 extremities. EXTREMITIES: There is no peripheral edema. No clubbing, no cyanosis. Peripheral pulses are intact. - Labs CBC & Chem 7: 08/24/24 06:51 08/24/24 06:51 Labs: Abnormal Lab Results - Last 24 Hours (Table) 08/24/24 08/24/24 Range/Units 06:51 06:51 WBC 14.22 H (4.50-10.00) X 10*3/uL RBC 3.55 L (4.40-5.60) X 10*6/uL Hgb 11.3 L (13.0-17.0) g/dL Hct 34.8 L (39.6-50.0) % MCV 98.0 H (80.0-97.0) FL MPV 9.2 L (9.5-12.2) FL Immature Gran # 0.06 H (0.00-0.04) X 10*3/uL Neutrophils # 13.46 H (1.80-7.70) X 10*3/uL Lymphocytes # 0.13 L (0.90-5.00) X 10*3/uL Eosinophils # 0 L (0.04-0.35) X 10*3/uL BUN/Creatinine Ratio 25.40 H (12.00-20.00) Ratio Glucose 124 H (70-110) mg/dL Calcium 8.4 L (8.7-10.3) mg/dL Total Protein 5.7 L (6.2-8.2) g/dL Albumin 3.6 L (3.8-4.9) g/dL Assessment and Plan Assessment: Acute hypoxemic respiratory failure secondary to an acute exacerbation of chronic obstructive pulmonary disease. Procalcitonin 0.24 History of chronic obstructive pulmonary disease Chronic and ongoing tobacco dependence of greater than 50 years History of asbestos exposure with pleural plaque thickening on imaging Hypertension Hyperlipidemia Plan: The patient was seen and evaluated Chest x-ray, labs and medications reviewed Procalcitonin negative Discontinue ceftriaxone and azithromycin Discontinue Solu-Medrol Initiated a prednisone taper Cleared for discharge from the pulmonary standpoint Follow-up in our office in 1 week This patient was seen independently by the pulmonary nurse practitioner addressing pulmonary issues I have personally seen and examined the patient, performed the documentation and the assessment and plan as written. Number of minutes spent on the visit: 24 Dictation was produced using [employer] dictation software. Please excuse any grammatical, word or spelling errors.
[2024-08-24 13:30] VITALS: BP 127/97; PULSE 90; TEMP 98.8
--- NOTE | 2024-08-25 14:32 | P.DS ---
Providers Date of admission: 08/23/24 06:42 Attending physician: Hakeem Dhillon MD Consults: 08/23/24 06:42 Consult Physician Routine Consulting Provider: Niko Beebe Consult Reason/Comments: pneumonia, copd Do you want consulting provider notified?: Yes Primary care physician: Vasquez Alicea Hospital Course: Final Diagnosis Right midlung pneumonia community-acquired, without sepsis, suspect gram-ne gative organism Acute COPD exacerbation Acute hypoxemic respiratory failure secondary to above Chronic and ongoing nicotine use Hypertension Hyperlipidemia Atrial Fibrillation anticoagulated with eliquis Discharge Disposition Stable for discharge home. He is being continued on a long prednisone taper. 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 Chow in the office in 1 week. Hospital Course This is a pleasant 74-year-old male with medical history significant for COPD, tobacco use, hypertension, atrial fibrillation. Patient comes into the hospital complaining of shortness of breath, productive cough with blandon colored sputum. He has not had any fever that he knows of. He continues to smoke about 1 to 2 cigarettes every couple weeks. Patient follows with Dr. Marcelo for his COPD. Chest x-ray shows a new right midlung acute infiltrate and/or atelectasis. White blood cell count 11.1, sodium 132, BUN of 22 creatinine of 0.97. His viral panel is negative. He was also negative for Legionella. he was admitted to the hospital with a consult placed to pulmonary services. He was started empirically on IV Rocephin and azithromycin. Clinically he has improved. Procalcitonin level is normal. He is currently on room air saturating 96%. Repeat chest x-ray reveals improved aeration of the right lung with persistent multifocal airspace opacities. His electrolytes and renal function have normalized. He will be discharged home. Please see medication reconciliation for a list of current medications. Thank you for allowing us to participate in the care of this patient. The impression and plan of care has been dictated by Mandy Nolan, Nurse Practitioner as directed. Dr. Shahbaz MD I have performed a history and physical examination and medical decision making of this patient, discussed the same with the dictator, and agree with the dictators assessment and plan as written, documented as a scribe. Based on total visit time, I have performed more than 50% of this visit. Patient Condition at Discharge: Stable Plan - Discharge Summary New Discharge Prescriptions: New predniSONE 10 mg PO DAILY 27 Days #9 tab Pantoprazole [Protonix] 40 mg PO AC-BRKFST #30 tab Continue Isosorbide Mononitrate ER [Imdur] 30 mg PO DAILY #30 tab.er.24h Atorvastatin [Lipitor] 40 mg PO DAILY Albuterol Sulfate [Albuterol Sulfate Hfa] 1 - 2 puff INHALATION RT-Q6H PRN PRN Reason: Shortness Of Breath Irbesartan 300 mg PO DAILY #30 tablet carvediloL [Coreg] 12.5 mg PO BID Apixaban [Eliquis] 5 mg PO BID prednisoLONE ACETATE 1% OPHTH [Pred Forte 1%] 1 drop BOTH EYES BID Nitroglycerin Sl Tabs [Nitrostat] 0.4 mg SUBLINGUAL Q5M PRN PRN Reason: Chest Pain Fluticasone/Umeclidin/Vilanter [Trelegy Ellipta 100-62.5-25] 1 puff INHALATION RT-DAILY Discontinued Budesonide-Formot 160-4.5 Mcg [Symbicort 160-4.5 Mcg Inhaler] 2 puff INHALATION RT-BID Discharge Medication List Isosorbide Mononitrate ER [Imdur] 30 mg PO DAILY #30 tab.er.24h 03/24/18 [Rx] Atorvastatin [Lipitor] 40 mg PO DAILY 11/21/19 [History] Albuterol Sulfate [Albuterol Sulfate Hfa] 1 - 2 puff INHALATION RT-Q6H PRN 01/31/23 [History] Irbesartan 300 mg PO DAILY #30 tablet 01/31/23 [Rx] Apixaban [Eliquis] 5 mg PO BID 08/23/24 [History] Fluticasone/Umeclidin/Vilanter [Trelegy Ellipta 100-62.5-25] 1 puff INHALATION RT-DAILY 08/23/24 [History] Nitroglycerin Sl Tabs [Nitrostat] 0.4 mg SUBLINGUAL Q5M PRN 08/23/24 [History] carvediloL [Coreg] 12.5 mg PO BID 08/23/24 [History] prednisoLONE ACETATE 1% OPHTH [Pred Forte 1%] 1 drop BOTH EYES BID 08/23/24 [History] Pantoprazole [Protonix] 40 mg PO AC-BRKFST #30 tab 08/24/24 [Rx] predniSONE 10 mg PO DAILY 27 Days #9 tab 08/24/24 [Rx] Follow up Appointment(s)/Referral(s): Vasquez Alicea MD [Primary Care Provider] - 1-2 days Barry Marcelo MD [STAFF PHYSICIAN] - 1 Week Ambulatory/Diagnostic Orders: Basic Metabolic Panel [LAB.AMB] Time Frame: 3 Days, Location: None Selected Complete Blood Count w/diff [LAB.AMB] Location: None Selected Activity/Diet/Wound Care/Special Instructions: Complete prednisone taper No antibiotics needed on discharge Follow up with Dr Marcelo 1 to 2 weeks Recommend to quit smoking. Discharge Disposition: HOME SELF-CARE
== END 2024-08-24 13:45 | disposition home or self-care (01) | DRG 177 ==
LOC: EC 05:44 → 5NMEDONC 06:42
PROVIDERS: ADMIT Internal Medicine; ATTEND Internal Medicine
DX: J15.69 Pneumonia due to other Gram-negative bacteria (principal); J96.01 Acute respiratory failure with hypoxia; J44.0 Chronic obstructive pulmonary disease with (acute) lower respiratory infection; J44.1 Chronic obstructive pulmonary disease with (acute) exacerbation; I48.91 Unspecified atrial fibrillation; I11.9 Hypertensive heart disease without heart failure; H91.90 Unspecified hearing loss, unspecified ear; F17.210 Nicotine dependence, cigarettes, uncomplicated; J92.0 Pleural plaque with presence of asbestos; E78.5 Hyperlipidemia, unspecified; Z79.01 Long term (current) use of anticoagulants; Z79.51 Long term (current) use of inhaled steroids; Z79.899 Other long term (current) drug therapy; Z79.82 Long term (current) use of aspirin; Z79.02 Long term (current) use of antithrombotics/antiplatelets; I25.2 Old myocardial infarction; Z11.52 Encounter for screening for COVID-19
CPT/HCPCS: 36415; 71045; 71046; 80053; 83735; 83880; 84145; 85025; 85610; 85730; 87040; 87070; 87077; 87186; 87205; 87449; 87636; 93005; 94640; 96361; 96365; 96367; 96372; 96375; 96376; 99285

== ENCOUNTER → 2025-01-25 | Outpatient (CLI) | payer MEDICARE ==
--- NOTE | 2025-01-26 11:45 | CTL ---
EXAMINATION TYPE: CT Low Dose Lung DATE OF EXAM: 01/25/2025 8:03 AM COMPARISON: 12/16/2023 SCREENING VISIT: Subsequent CT DIAGNOSTIC QUALITY: Satisfactory CLINICAL INDICATION: Male, 74 years old with history of Z87.891 personal hx tobacco use, History of t obacco use., Lung cancer screening, History of tobacco use. TECHNIQUE: Low dose computed tomography scan was performed through the chest at 1 mm thick sections a nd reconstructed images in the coronal plane at 1 mm thick sections. Contrast used: mL of , (none if empty) Oral contrast used: (none if empty) CT DLP: 103.2 mGycm, Automated exposure control for dose reduction was used. CT CTDI: 2.6 mGy, Automated exposure control for dose reduction was used. FINDINGS: LUNG NODULES: Present, detailed below: 1. There is a 0.4 cm nodule medial left apex. Series 4 image 27. This appears new. 2. There is a 0.6 cm nodule anterior lateral right lung base. Series 4 image 199 present previously a nd stable. 3. There is a stable irregular density at the left base measuring 1.1 cm. Series 4 image 232. 4. There is a 0.8 cm nodule in the left posterior lateral costophrenic sulcus, series 4 image 258. T his was present previously measuring 0.7 cm. 5. There is a 0.6 cm left upper lobe nodule. Series 4 image 49. This appears new. 6. There is a 0.5 cm density within the lateral right upper lung field. Series 4 image 67. This Appea rs new. LUNGS: COPD: Severity: None Fibrosis: Severity: None Lymph nodes: None Other findings: None RIGHT PLEURAL SPACE: Effusion: None Calcification: Calcified pleural plaques are present Thickening: None Pneumothorax: None LEFT PLEURAL SPACE: Effusion: None Calcification: Calcified pleural plaques are present Thickening: None Pneumothorax: None HEART: Other: Ascending thoracic aorta at the level the main pulmonary artery measures 4.5 cm. The main pul monary artery at the bifurcation measures 4.0 cm. Heart Size: Normal Coronary calcification: Severe coronary artery calcifications present. Pericardial effusion: Small OTHER FINDINGS: Upper abdomen: Normal Bony thorax: Normal Supraclavicular region: Normal IMPRESSION: 1. Several small nodules some of which appear new. Consider PET/CT for additional workup. 2. Stable ascending thoracic aortic aneurysm 4.[address] CHEST RECOMMENDATION: Follow up PET/CT CT LUNG RAD: Lung-Rad 4A Suspicious. S modifier stable ascending thoracic aortic aneurysm. Small enzo cardial effusion [facility], , 01/26/2025 11:43 AM
== END | disposition home or self-care (01) ==
LOC: RADCTMAIN 07:28
PROVIDERS: ATTEND Internal Medicine Critical Care Medicine
DX: Z12.2 Encounter for screening for malignant neoplasm of respiratory organs (principal); I71.21 Aneurysm of the ascending aorta, without rupture; R91.8 Other nonspecific abnormal finding of lung field; Z87.891 Personal history of nicotine dependence
CPT/HCPCS: 71271

== ENCOUNTER 2025-04-12 09:13 | Inpatient (IN) | payer MEDICARE ==
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
[2025-04-12 10:20] LABS: Basophils # (A) 0.05 10*3/uL (0.00-0.10); Basophils % (A) 1.2 %; Eosinophils # (A) 0.12 10*3/uL (0.04-0.35); Eosinophils % (A) 2.9 %; HCT 21.2 % (39.6-50.0); Lymphocytes # (A) 0.34 10*3/uL (0.90-5.00); Lymphocytes % (A) 8.4 %; MCH 22.7 pg (27.0-32.0); MCHC 29.2 g/dL (32.0-37.0); MCV 77.7 fL (80.0-97.0); Monocytes # (A) 0.63 10*3/uL (0.20-1.00); Monocytes % (A) 15.5 %; Neutrophils # (A) 2.91 10*3/uL (1.80-7.70); Neutrophils % (A) 71.5 %; Platelet Count 183 10*3/uL (140-440); RBC 2.73 10*6/uL (4.40-5.60); RDW 17.5 % (11.5-14.5); WBC 4.07 10*3/uL (4.50-10.00)
[2025-04-12 10:22] LABS: HGB 6.2 g/dL (13.0-17.0)
[2025-04-12 10:29] LABS: ALT 24 U/L (4-49); African American GFR (CKD) 87 (>60 ml/min/1.73 sqM); Anion Gap 5 mmol/L; Blood Urea Nitrogen 29 mg/dL (9-20); Calcium 8.1 mg/dL (8.4-10.2); Carbon Dioxide 28 mmol/L (22-30); Chloride 103 mmol/L (98-107); Glucose 91 mg/dL (74-99); Non-African American GFR(CKD) 75 (>60 ml/min/1.73 sqM); Sodium 136 mmol/L (137-145)
--- NOTE | 2025-04-12 10:34 | XR ---
EXAMINATION TYPE: XR chest 2V DATE OF EXAM: 04/12/2025 10:28 AM COMPARISON: Chest radiographs from 01/14/2025 TECHNIQUE: XR chest 2V Frontal and lateral views of the chest. CLINICAL INDICATION:Male, 74 years old with history of difficulty breathing; FINDINGS: Lungs/Pleura: There is flattening of the diaphragm with increased lucency of the lungs. No evidence o f pneumothorax, pleural effusion or focal consolidation. Chronic interstitial changes. Scattered calc ified pleural plaques are demonstrated. Pulmonary vascularity: Unremarkable. Heart/mediastinum: Cardiomediastinal silhouette is unremarkable. Musculoskeletal: Multiple level degenerative disc disease changes seen throughout the spine. IMPRESSION: 1. No acute cardiopulmonary disease/process. 2. COPD with superimposed asbestos-related pleural disease. [facility], , 04/12/2025 10:31 AM
[2025-04-12 10:36] LABS: NT-Pro-B-Type Natriuretic Pept 4090 pg/mL
[2025-04-12 10:44] LABS: RSV Not Detected (Not Detectd)
[2025-04-12 10:51] LABS: INR 1.2 (<1.2); Partial Thromboplastin Time 20.3 sec (22.0-30.0); Prothrombin Time 12.9 sec (10.0-12.5)
[2025-04-12 10:56] LABS: Albumin 3.0 g/dL (3.5-5.0); Magnesium 2.3 mg/dL (1.6-2.3); Potassium 4.5 mmol/L (3.5-5.1); Total Protein 5.5 g/dL (6.3-8.2)
[2025-04-12 10:57] LABS: AST 43 U/L (17-59); Alkaline Phosphatase 63 U/L (38-126)
[2025-04-12] MEDS: FUROSEMIDE 10 MG/ML 4 ML VIAL IV STA (11:42)
[2025-04-12] MEDS: ACETAMINOPHEN TAB 500 MG TAB PO STA (11:42)
[2025-04-12] MEDS ORDERED: NALOXONE 0.4 MG/ML 1 ML VIAL IV PRN (11:52)
[2025-04-12] MEDS ORDERED: ONDANSETRON 4 MG/2 ML VIAL IVP PRN (11:52)
[2025-04-12] MEDS ORDERED: MORPHINE SULFATE 4 MG/ML SYRINGE IV PRN (11:52)
[2025-04-12] MEDS: PANTOPRAZOLE 40 MG/10 ML VIAL IVP STA (12:12)
[2025-04-12 12:35] LABS: Bilirubin,Urine Negative (Negative); Blood,Urine Negative (Negative); Color,Urine Light Yellow; Glucose,Urine (UA) Negative (Negative); Ketones,Urine Negative (Negative); Leukocyte Esterase,Urine Negative (Negative); Nitrite,Urine Negative (Negative); PH, Urine 7.0 (5.0-8.0); Protein,Urine Negative (Negative); Specific Gravity,Urine 1.016 (1.001-1.035); Urobilinogen,Urine 4.0 mg/dL (<2.0)
[2025-04-12] MEDS ORDERED: ALBUTEROL NEBULIZED 2.5 MG/3 ML INHALATION PRN (13:14)
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
[2025-04-12] MEDS: IPRATROPIUM-ALBUTEROL 3 ML NEB INHALATION STA (14:54)
[2025-04-12] MEDS: IPRATROPIUM-ALBUTEROL 3 ML NEB INHALATION SCH (14:58)
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
[2025-04-12 18:32] LABS: Basophils # (A) 0.03 10*3/uL (0.00-0.10); Basophils % (A) 0.7 %; Eosinophils # (A) 0.19 10*3/uL (0.04-0.35); Eosinophils % (A) 4.6 %; HCT 24.5 % (39.6-50.0); HGB 7.3 g/dL (13.0-17.0); Lymphocytes # (A) 0.43 10*3/uL (0.90-5.00); Lymphocytes % (A) 10.3 %; MCH 23.8 pg (27.0-32.0); MCHC 29.8 g/dL (32.0-37.0); MCV 79.8 fL (80.0-97.0); Monocytes # (A) 0.83 10*3/uL (0.20-1.00); Monocytes % (A) 19.9 %; Neutrophils # (A) 2.68 10*3/uL (1.80-7.70); Neutrophils % (A) 64.3 %; Platelet Count 219 10*3/uL (140-440); RBC 3.07 10*6/uL (4.40-5.60); RDW 17.2 % (11.5-14.5); WBC 4.17 10*3/uL (4.50-10.00)
[2025-04-12 19:51] LABS: Iron 11.0 UG/DL (65-175); Total Iron Binding Capacity 340.0 UG/DL (228-460); Vitamin B12 391.0 pg/mL (200.0-944.0)
[2025-04-12] MEDS: SYMBICORT 160-4.5 MCG INHALER INHALATION SCH (20:07)
[2025-04-12] MEDS: FUROSEMIDE 10 MG/ML 4 ML VIAL IV SCH (20:27)
[2025-04-12] MEDS: HYDROcodone/APAP 5-325MG 1 EACH TAB PO PRN (20:28)
[2025-04-13] MEDS: ISOSORBIDE MONONITRATE ER 30 MG TAB.ER.24H PO SCH (08:29)
[2025-04-13] MEDS: ATORVASTATIN 40 MG TAB PO SCH (08:29)
[2025-04-13] MEDS: PANTOPRAZOLE 40 MG/10 ML VIAL IV SCH (08:29)
[2025-04-13 08:44] LABS: Basophils # (A) 0.02 X 10*3/uL (0.00-0.10); Basophils % (A) 0.4 %; Eosinophils # (A) 0.15 X 10*3/uL (0.04-0.35); Eosinophils % (A) 3.3 %; HCT 25.5 % (39.6-50.0); HGB 7.3 g/dL (13.0-17.0); Immature Grans, Automated 0.40 %; Lymphocytes # (A) 0.29 X 10*3/uL (0.90-5.00); Lymphocytes % (A) 6.3 %; MCH 23.0 pg (27.0-32.0); MCHC 28.6 g/dL (32.0-37.0); MCV 80.2 FL (80.0-97.0); Monocytes # (A) 0.70 X 10*3/uL (0.20-1.00); Monocytes % (A) 15.2 %; NRBC Per 100 WBC 0.02 X 10*3/uL (0.00-0.01); Neutrophils # (A) 3.43 X 10*3/uL (1.80-7.70); Neutrophils % (A) 74.4 %; Platelet Count 232 X 10*3/uL (140-440); RBC 3.18 X 10*6/uL (4.40-5.60); RDW 17.1 % (11.5-14.5); WBC 4.61 X 10*3/uL (4.50-10.00)
[2025-04-13 08:53] LABS: Anion Gap 8.90 mmol/L (4.00-12.00); BUN/Creat Ratio 19.46 Ratio (12.00-20.00); Blood Urea Nitrogen 25.3 mg/dL (9.0-27.0); Calcium 7.9 mg/dL (8.7-10.3); Carbon Dioxide 27.1 mmol/L (21.6-31.8); Chloride 102 mmol/L (96-109); Glucose 88 mg/dL (70-110); Potassium 4.1 mmol/L (3.5-5.5); Sodium 138 mmol/L (135-145)
--- NOTE | 2025-04-13 11:51 | P.PN ---
Subjective Progress Note Date: 04/13/25 CHIEF COMPLAINT: Severe acute anemia, hemoglobin 6.2 HISTORY OF PRESENT ILLNESS: The patient is a 74-year-old male with pre-existing heart disease who presented with severe anemia 6.2. Baseline hemoglobin in 2023 was 11.3. Patient has never had a colonoscopy. He did have a bowel movement prior to my assessment which she reports to nurse that was normal in appearance. He does report moderate swelling of the bilateral lower extremities including lower abdomen which is following of the groin. He tolerated his diet this morning. He received 1 unit of blood yesterday. ROS: No reports of nausea and vomiting. No fevers or chills. No new chest pain. No productive sputum PHYSICAL EXAM: VITAL SIGNS: Reviewed CONSTITUTIONAL: Well developed and in no acute distress. EYES: Conjuctivae without sclera icterus. Extraocular movements grossly intact. HEAD, EARS, NOSE, THROAT: Moist buccal mucosa. Head is atraumatic, normocephalic. Hears conversational speech. No nasal drainage. RESPIRATORY: Non-labored respirations and equal bilateral excursions. CARDIOVASCULAR: Palpable 2+ radial pulses. ABDOMEN: No peritonitis. Mild distention. MUSCULOSKELETAL: No gross deformity of the lower extremities noted. No clubbing. No cyanosis. SKIN: Good skin turgor. Well perfused. NEUROLOGIC: Cranial nerves II through XII grossly intact. No focal or lateralizing signs. PSYCH: Appropriate affect. Alert and oriented to person, place and time. CLINICAL LABS: Reviewed. Hemoglobin up 6.2-7.3. Creatinine elevated 0.9 to 1.33. ASSESSMENT: 1. Acute blood loss anemia, unclear etiology 2. Acute exacerbation of congestive heart failure. 3. Bilateral lower extremity swelling 4. Acute renal insufficiency PLAN: 1. Agree with cardiology consultation due to acute on chronic exacerbation of congestive heart failure. 2. Upper and lower endoscopy described due to acute symptomatic anemia hemoglobin 6.2 3. Also may benefit from nephrology consultation as renal function is worsening in setting of increased bilateral lower extremity edema 4. Due to his bilateral lower extremity swelling, and increased abdominal swelling, will obtain CT of the abdomen pelvis with oral contrast only. Will avoid nephrotoxic agents in the interim. 5. Prep for colonoscopy discussed to start tomorrow. Dictation was produced using [employer] software. Please excuse any grammatical, word or spelling errors. Objective - Vital Signs Vital signs: Vital Signs Temp 97.4 F L 04/13/25 08:52 Pulse 92 04/13/25 09:05 Resp 20 04/13/25 08:52 BP 138/86 04/13/25 08:52 Pulse Ox 96 04/13/25 08:52 FiO2 Intake & Output 04/12/25 04/13/25 04/13/25 18:59 06:59 18:59 Intake Total 310 480 Output Total 243 Balance 67 480 Weight 91.49 kg 61.5 kg Intake: Oral 480 Blood Product 310 Rc As-1 Unit 310 [id number] Output: Post Void Residual 243 Other: Voiding Method Toilet # Voids 4 - Labs CBC & Chem 7: 04/13/25 02:44 04/13/25 02:44 Labs: Abnormal Lab Results - Last 24 Hours (Table) 04/12/25 04/12/25 04/12/25 Range/Units 10:11 10:28 18:25 WBC 4.17 L (4.50-10.00) 10*3/uL RBC 3.07 L (4.40-5.60) 10*6/uL Hgb 7.3 L (13.0-17.0) g/dL Hct 24.5 L (39.6-50.0) % MCV 79.8 L (80.0-97.0) fL MCH 23.8 L (27.0-32.0) pg MCHC 29.8 L (32.0-37.0) g/dL RDW 17.2 H (11.5-14.5) % Lymphocytes # 0.43 L (0.90-5.00) 10*3/uL NRBC/100 WBC Diff (0.00-0.01) X 10*3/uL Est GFR (CKD-EPI) (>=60) Calcium (8.7-10.3) mg/dL Iron 11 L (65-175) UG/DL % Saturation 3.24 L (15.00-50.00) Crossmatch See Detail 04/13/25 04/13/25 Range/Units 02:44 02:44 WBC (4.50-10.00) 10*3/uL RBC 3.18 L (4.40-5.60) 10*6/uL Hgb 7.3 L (13.0-17.0) g/dL Hct 25.5 L (39.6-50.0) % MCV (80.0-97.0) fL MCH 23.0 L (27.0-32.0) pg MCHC 28.6 L (32.0-37.0) g/dL RDW 17.1 H (11.5-14.5) % Lymphocytes # 0.29 L (0.90-5.00) 10*3/uL NRBC/100 WBC Diff 0.02 H (0.00-0.01) X 10*3/uL Est GFR (CKD-EPI) 58 L (>=60) Calcium 7.9 L (8.7-10.3) mg/dL Iron (65-175) UG/DL % Saturation (15.00-50.00) Crossmatch
[2025-04-13] MEDS: IOPAMIDOL CONTRAST (ORAL USE) VIAL PO PRN (12:20)
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
--- NOTE | 2025-04-13 13:51 | CT ---
EXAMINATION TYPE: CT abdomen pelvis wo con DATE OF EXAM: 04/13/2025 COMPARISON: None CLINICAL INDICATION: Male, 74 years old with history of Abdominal pain; PHH, Abdominal pain TECHNIQUE: CT scan of the abdomen and pelvis is performed without oral or IV contrast. CT DLP: [address] CTDI: mGy Automated exposure control for dose reduction was used. FINDINGS: Within the limitations of a non-contrast study, the following observations are made. There are calcified pleural-based plaques in the lower lobes. There are moderate chronic interstitial changes in the lower lobes with mild bronchiectasis. There is a moderate pericardial effusion. There is a tiny gallstone but no gallbladder wall thickening or distention. There is no organomegaly involving the solid visceral organs of the upper abdomen. There are no renal calcifications or hydronephrosis. There are marked arterial vascular calcification s involve the aorta, renal arteries and arteries. There is no abdominal aortic aneurysm. Bowel loops are normal in caliber with no obstruction. There is a small right inguinal hernia contain ing bowel loop does not appear strangulated or obstructed. There is no free intraperitoneal air or fluid. There is no pelvic adenopathy. There is a small amount of free fluid within the cul-de-sac of the pelvis. There is moderate anasarca . There are no focal osseous lesions. IMPRESSION: 1. Mild cholelithiasis. 2. Chronic changes within the lung bases as described above. 3. Moderate pericardial effusion. 4. small amount of ascites within the cul-de-sac pelvis. 5 moderate anasarca. 6. Small right inguinal hernia containing normal bowel loops. [facility], , 04/13/2025 1:48 PM
[2025-04-13 16:17] VITALS: BMI 18.8
[2025-04-13] MEDS: ACETAMINOPHEN TAB 325 MG TAB PO PRN (16:59)
--- NOTE | 2025-04-13 17:22 | P.PN ---
Subjective This is a pleasant 74 years old male with past medical history of CHF. Patient presents because of worsening leg swelling of 1 month duration History of worsening dyspnea over 4 weeks duration with no chest pain or significant coughing. He still smokes about sporadically about 2 cigarettes/week as he states but no alcohol illicit drugs. He denies abdominal pain vomiting diarrhea. No dysuria urgency. He had little chest pain earlier but looks fine today. Also has little headache but no dyspnea coughing no weakness numbness. Also on admission hemoglobin was noticed low but patient denies using any other NSAIDs or blood thinner other than his Eliquis at home. He denies recent bleeding. He denies blood in his stool. He states his stool was dark 2 weeks ago but not black and over the last 2 days it was light brown. No abdominal pain as above. Patient with no fever blood pressure stable slightly tachypneic. Hemoglobin 6.2 rest of labs including BMP LFT INR troponin were unremarkable chest x-ray showing COPD changes with no acute cardiopulmonary process other than that EKG showing atrial fibrillation with rate of [address] depressions in [id number] from 2022 showing ejection fraction of 55 to 60% 70/12 Dyspnea is better Has normal bowel movement in the morning it was no blood and brown in color. Patient ate well. He has significant leg edema, 3+. Pitting leg edema however his dyspnea significantly improved He pees a lot as he states Creatinine went up 0.9 up to 1.3 however this could also could be due to retention, bladder scan was more than 250 yesterday, going to recheck it today for more than 250 again we will going to place a Saini catheter. Epitaxial Reactor Technician evaluation is requested and they recommend to continue with IV Lasix 40 mg twice daily Surgery team planning for endoscopy on Tuesday Cardiology team were consulted Active Medications Generic Name Dose Route Start Last Admin Trade Name Freq PRN Reason Stop Dose Admin Acetaminophen 650 mg 04/12/25 11:52 04/13/25 16:59 Acetaminophen Tab 325 Mg Tab PO 650 mg Q6HR PRN Administration Mild Pain or Fever > 100.5 Hydrocodone Bitart/Acetaminophen 1 each 04/12/25 11:52 04/12/25 20:28 Hydrocodone/Apap 5-325mg 1 Each Tab PO 1 each Q4HR PRN Administration Moderate Pain (Scale 4 to 6) Albuterol Sulfate 2.5 mg 04/12/25 13:14 Albuterol Nebulized 2.5 Mg/3 Ml INHALATION RT-Q6H PRN Shortness Of Breath Albuterol/Ipratropium 3 ml 04/12/25 16:00 04/13/25 16:03 Ipratropium-Albuterol 3 Ml Neb INHALATION 3 ml RT-QID CAROL Administration Atorvastatin Calcium 40 mg 04/13/25 09:00 04/13/25 08:29 Atorvastatin 40 Mg Tab PO 40 mg DAILY CAROL Administration Budesonide/Formoterol Fumarate 2 puff 04/12/25 20:00 04/13/25 08:47 Symbicort 160-4.5 Mcg Inhaler INHALATION 2 puff RT-BID CAROL Administration Carvedilol 12.5 mg 04/12/25 21:00 04/13/25 16:59 Carvedilol 12.5 Mg Tab PO 12.5 mg BID-W/MEALS CAROL Administration Furosemide 40 mg 04/12/25 21:00 04/13/25 08:29 Furosemide 10 Mg/Ml 4 Ml Vial IV 40 mg Q12HR CAROL Administration Isosorbide Mononitrate 30 mg 04/13/25 09:00 04/13/25 08:29 Isosorbide Mononitrate Er 30 Mg Tab.Er.24h PO 30 mg DAILY CAROL Administration Morphine Sulfate 4 mg 04/12/25 11:52 Morphine Sulfate 4 Mg/Ml Syringe IV Q4HR PRN Severe Pain (Scale 7 to 10) Naloxone HCl 0.2 mg 04/12/25 11:52 Naloxone 0.4 Mg/Ml 1 Ml Vial IV Q2M PRN Opioid Reversal Ondansetron HCl 4 mg 04/12/25 11:52 Ondansetron 4 Mg/2 Ml Vial IVP Q8HR PRN Nausea And Vomiting Pantoprazole Sodium 40 mg 04/13/25 09:00 04/13/25 08:29 Pantoprazole 40 Mg/10 Ml Vial IV 40 mg DAILY CAROL Administration Objective - Vital Signs Vital signs: Vital Signs Temp 97.4 F L 04/13/25 08:52 Pulse 92 04/13/25 09:05 Resp 20 04/13/25 08:52 BP 138/86 04/13/25 08:52 Pulse Ox 96 04/13/25 08:52 FiO2 Intake & Output 04/12/25 04/13/25 04/13/25 18:59 06:59 18:59 Intake Total 310 480 Output Total 243 Balance 67 480 Weight 91.49 kg 61.5 kg Intake: Oral 480 Blood Product 310 Rc As-1 Unit 310 [id number] Output: Post Void Residual 243 Other: Voiding Method Toilet # Voids 4 - Exam GENERAL: The patient is alert and oriented x3, not in any acute distress. Well developed, well nourished. HEENT: Pupils are round and equally reacting to light. EOMI. No scleral icterus. No conjunctival pallor. Normocephalic, atraumatic. No pharyngeal erythema. No thyromegaly. CARDIOVASCULAR: S1 and S2 present. No murmurs, rubs, or gallops. PULMONARY: Chest is clear to auscultation, no wheezing , no crackles. ABDOMEN: Soft, nontender, nondistended, normoactive bowel sounds. No palpable organomegaly. MUSCULOSKELETAL: No joint swelling or deformity. -EXTREMITIES: No cyanosis, clubbing,. 3+ bilateral pitting leg edema NEUROLOGICAL: Gross neurological examination did not reveal any focal deficits. SKIN: No rashes. no petechiae. - Labs CBC & Chem 7: 04/13/25 02:44 04/13/25 02:44 Labs: Abnormal Lab Results - Last 24 Hours (Table) 04/12/25 04/12/25 04/12/25 Range/Units 10:11 10:28 18:25 WBC 4.17 L (4.50-10.00) 10*3/uL RBC 3.07 L (4.40-5.60) 10*6/uL Hgb 7.3 L (13.0-17.0) g/dL Hct 24.5 L (39.6-50.0) % MCV 79.8 L (80.0-97.0) fL MCH 23.8 L (27.0-32.0) pg MCHC 29.8 L (32.0-37.0) g/dL RDW 17.2 H (11.5-14.5) % Lymphocytes # 0.43 L (0.90-5.00) 10*3/uL NRBC/100 WBC Diff (0.00-0.01) X 10*3/uL Est GFR (CKD-EPI) (>=60) Calcium (8.7-10.3) mg/dL Iron 11 L (65-175) UG/DL % Saturation 3.24 L (15.00-50.00) Crossmatch See Detail 04/13/25 04/13/25 Range/Units 02:44 02:44 WBC (4.50-10.00) 10*3/uL RBC 3.18 L (4.40-5.60) 10*6/uL Hgb 7.3 L (13.0-17.0) g/dL Hct 25.5 L (39.6-50.0) % MCV (80.0-97.0) fL MCH 23.0 L (27.0-32.0) pg MCHC 28.6 L (32.0-37.0) g/dL RDW 17.1 H (11.5-14.5) % Lymphocytes # 0.29 L (0.90-5.00) 10*3/uL NRBC/100 WBC Diff 0.02 H (0.00-0.01) X 10*3/uL Est GFR (CKD-EPI) 58 L (>=60) Calcium 7.9 L (8.7-10.3) mg/dL Iron (65-175) UG/DL % Saturation (15.00-50.00) Crossmatch Assessment and Plan Assessment: Acute diastolic CHF with preserved ejection fraction, EF 55 to 60% Acute on chronic anemia with Hemoglobin 6.2 on admission, baseline around 11 Anasarca, moderate with small ascites and pericardial effusion which is moderate COPD with no acute exacerbation Hearing difficulty Hypertension chronic A-fib with controlled rates on Eliquis and Coreg as an outpatient for take Plan: Continue with IV Lasix 40 mg twice daily Monitor input output and creatinine Hold Eliquis Anemia workup Cardiology team consult Surgery team consult. Plan for endoscopy on 04/15 Nephrology team consult Labs and medication were reviewed.. Continue same treatment. Continue with symptomatic treatment. Resume home medication. Monitor labs and vitals. DVT and GI prophylaxis. Further recommendations as per clinical course of the patient DVT prophylaxis: n mechanical hold Eliquis in view of severe anemia GI Prophylaxis: Protonix PT/OT: Pending Prognosis is guarded
[2025-04-13 17:26] LABS: Protein/Creatinine Ratio,Urine 0.284
--- NOTE | 2025-04-13 17:50 | P.CRDCN ---
History of Present Illness Consult date: 04/13/25 History of present illness: HISTORY OF PRESENTING ILLNESS: 74-year-old known to Dr. Dillon. Presented because of 1 to 2 months of worsening bilateral lower extremity edema, generalized weakness, increased shortness of breath with minimal exertion along with some symptoms of orthopnea and paroxysmal nocturnal dyspnea. Denies any chest pain chest pressure. Smoking sporadically denies any heavy alcohol use drug use marijuana use. ..................................... ................................................................................ ......................... Pertient Vitals: 120/76, heart rate 84 bpm Pertient Labs: Admission labs hemoglobin 7.2, BUN 23, creatinine 0.9, low iron, low iron saturation NT-proBNP 4000 troponin negative EKG: EKG showed atrial fibrillation heart rate 93 bpm Pertient Imaging: Abdo pelvis chest CT showed moderate anasarca, small ascites, small to moderate pericardial effusion Chest x-ray shows bilateral pulmonary congestion history of fluid overload Home medication Coreg 12.5, Lipitor 40, Eliquis 5 twice daily, Lasix 40 daily irbesartan 300 ............................................................................ .................................................................. Prior cardiac testing: Dobutamine stress echo from 2022 was unremarkable Cardiac cath from 2018 showed calcified coronary arteries, significant disease in small nondominant RCA not amenable for intervention, mild to moderate nonobst ructive disease in LAD and LCx ..................................................................... ......................................................................... REVIEW OF SYSTEMS: 14 point review of system is negative except what is mentioned above in HPI. .............................. ................................................................................ ................................ PHYSICAL EXAMINATION: Neck: Brisk carotid upstroke, no jugular venous distention. Lungs: Clear to auscultation. Heart: Regular rate and rhythm, S1-S2, , no murmur or rub. Abdomen: Soft nontender, positive bowel sounds. Extremities: 2+ pitting edema bilateral extremity with skin hardening Neuro: Alert, oritented, no focal deficits. Detailed neuro exam was not performed. .............. ................................................................................ ................................................ ASSESSMENT: # Acute CHF exacerbation, HFpEF # Small to moderate pericardial effusion # Small ascites # Persistent atrial fibrillation, rate controlled # Acute on chronic anemia # Essential hypertension # COPD # Tobacco dependence smoking # Iron deficiency PLAN: Hold anticoagulation, look for cause for anemia. Consult GI for possible upper GI endoscopy. IV Protonix Continue Coreg 12.5 twice daily, Hold Imdur. Continue IV Lasix 40 mg twice daily,, Aldactone 12.5 mg daily. Monitor kidney function electrolytes Monitor kidney function electrolytes Obtain echocardiogram Give IV iron 2 doses. got 1 PRBC Daniel Ann MD, FACC, RPVI Past Medical History Past Medical History: COPD, Hearing Disorder / Deafness, Hypertension, Myocardial Infarction (ND) Additional Past Medical History / Comment(s): chemical burn to arms d/t work related injury, asbestos exposure Last Myocardial Infarction Date:: 2016 History of Any Multi-Drug Resistant Organisms: None Reported Past Surgical History: Appendectomy, Back Surgery, Orthopedic Surgery Additional Past Surgical History / Comment(s): carpal tunel, knee sx Past Anesthesia/Blood Transfusion Reactions: No Reported Reaction Past Psychological History: No Psychological Hx Reported Additional Psychological History / Comment(s): pt is independant, drives . lives with son. 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 Smoking Status: Current some day smoker Past Alcohol Use History: None Reported Additional Past Alcohol Use History / Comment(s): . Past Drug Use History: None Reported - Past Family History Father Family Medical History: Myocardial Infarction (ND) Mother Family Medical History: CVA/TIA, Myocardial Infarction (ND), Pneumonia Medications and Allergies Home Medications Medication Instructions Recorded Confirmed Type Isosorbide Mononitrate ER [Imdur] 30 mg PO DAILY #30 tab.er.24h 03/24/18 04/12/25 Rx Atorvastatin [Lipitor] 40 mg PO DAILY 11/21/19 04/12/25 History Albuterol Sulfate [Albuterol 1 - 2 puff INHALATION RT-Q6H PRN 01/31/23 04/12/25 History Sulfate Hfa] Irbesartan 300 mg PO DAILY #30 tablet 01/31/23 04/12/25 Rx Apixaban [Eliquis] 5 mg PO BID 08/23/24 04/12/25 History Fluticasone/Umeclidin/Vilanter 1 puff INHALATION RT-DAILY 08/23/24 04/12/25 History [Trelegy Ellipta 100-62.5-25] carvediloL [Coreg] 12.5 mg PO BID 08/23/24 04/12/25 History Budesonide/Formoterol Fumarate 2 puff INHALATION RT-BID 04/12/25 04/12/25 History [Breyna 160-4.5 Mcg Inhaler] Furosemide [Lasix] 20 mg PO DAILY 04/12/25 04/12/25 History Allergies Allergy/AdvReac Type Severity Reaction Status Date / Time No Known Allergies Allergy Verified 04/12/25 13:10 Physical Exam Vitals: Vital Signs Temp Pulse Pulse Pulse Resp BP BP 04/13/25 16:12 88 04/13/25 16:04 84 04/13/25 14:00 98.2 F 84 18 120/76 04/13/25 09:05 92 04/13/25 08:52 97.4 F L 89 20 138/86 04/13/25 08:47 88 04/13/25 02:21 97.8 F 95 16 127/82 04/12/25 23:00 97.5 F L 89 16 136/78 04/12/25 22:44 88 18 147/98 04/12/25 20:32 97 19 127/89 04/12/25 20:18 97 04/12/25 20:08 98 04/12/25 19:00 96 18 164/104 Pulse Ox 04/13/25 16:12 04/13/25 16:04 04/13/25 14:00 94 L 04/13/25 09:05 04/13/25 08:52 96 04/13/25 08:47 04/13/25 02:21 96 04/12/25 23:00 96 04/12/25 22:44 96 04/12/25 20:32 94 L 04/12/25 20:18 04/12/25 20:08 04/12/25 19:00 97 Intake and Output 04/13/25 04/13/25 04/13/25 06:59 14:59 22:59 Intake Total 480 Balance 480 Intake: Oral 480 Other: Voiding Method Toilet # Voids 4 Weight 61.5 kg 61.5 kg Results 04/13/25 02:44 04/13/25 02:44 CBC 04/12/25 04/13/25 Range/Units 18:25 02:44 WBC 4.17 L 4.61 (4.50-10.00) 10*3/uL RBC 3.07 L 3.18 L (4.40-5.60) 10*6/uL Hgb 7.3 L 7.3 L (13.0-17.0) g/dL Hct 24.5 L 25.5 L (39.6-50.0) % Plt Count 219 232 (140-440) 10*3/uL Comprehensive Metabolic Panel 04/13/25 Range/Units 02:44 Sodium 138 (135-145) mmol/L Potassium 4.1 (3.5-5.5) mmol/L Chloride 102 (96-109) mmol/L Carbon Dioxide 27.1 (21.6-31.8) mmol/L BUN 25.3 (9.0-27.0) mg/dL Creatinine 1.3 (0.6-1.5) mg/dL Glucose 88 (70-110) mg/dL Calcium 7.9 L (8.7-10.3) mg/dL Current Medications Generic Name Dose Route Start Last Admin Trade Name Freq PRN Reason Stop Dose Admin Acetaminophen 650 mg 04/12/25 11:52 04/13/25 16:59 Acetaminophen Tab 325 Mg Tab PO 650 mg Q6HR PRN Administration Mild Pain or Fever > 100.5 Hydrocodone Bitart/Acetaminophen 1 each 04/12/25 11:52 04/12/25 20:28 Hydrocodone/Apap 5-325mg 1 Each Tab PO 1 each Q4HR PRN Administration Moderate Pain (Scale 4 to 6) Albuterol Sulfate 2.5 mg 04/12/25 13:14 Albuterol Nebulized 2.5 Mg/3 Ml INHALATION RT-Q6H PRN Shortness Of Breath Albuterol/Ipratropium 3 ml 04/12/25 16:00 04/13/25 16:03 Ipratropium-Albuterol 3 Ml Neb INHALATION 3 ml RT-QID CAROL Administration Atorvastatin Calcium 40 mg 04/13/25 09:00 04/13/25 08:29 Atorvastatin 40 Mg Tab PO 40 mg DAILY CAROL Administration Budesonide/Formoterol Fumarate 2 puff 04/12/25 20:00 04/13/25 08:47 Symbicort 160-4.5 Mcg Inhaler INHALATION 2 puff RT-BID CAROL Administration Carvedilol 12.5 mg 04/12/25 21:00 04/13/25 16:59 Carvedilol 12.5 Mg Tab PO 12.5 mg BID-W/MEALS CAROL Administration Furosemide 40 mg 04/12/25 21:00 04/13/25 08:29 Furosemide 10 Mg/Ml 4 Ml Vial IV 40 mg Q12HR CAROL Administration Ferric Sodium Gluconate 125 mg 110 mls @ 100 mls/hr 04/13/25 18:00 / Sodium Chloride IVPB 04/14/25 10:05 DAILY CAROL Isosorbide Mononitrate 30 mg 04/13/25 09:00 04/13/25 08:29 Isosorbide Mononitrate Er 30 Mg Tab.Er.24h PO 30 mg DAILY CAROL Administration Morphine Sulfate 4 mg 04/12/25 11:52 Morphine Sulfate 4 Mg/Ml Syringe IV Q4HR PRN Severe Pain (Scale 7 to 10) Naloxone HCl 0.2 mg 04/12/25 11:52 Naloxone 0.4 Mg/Ml 1 Ml Vial IV Q2M PRN Opioid Reversal Ondansetron HCl 4 mg 04/12/25 11:52 Ondansetron 4 Mg/2 Ml Vial IVP Q8HR PRN Nausea And Vomiting Pantoprazole Sodium 40 mg 04/13/25 09:00 04/13/25 08:29 Pantoprazole 40 Mg/10 Ml Vial IV 40 mg DAILY CAROL Administration Spironolactone 12.5 mg 04/13/25 18:00 Spironolactone 25 Mg Tab PO DAILY CAROL Intake and Output 04/13/25 04/13/25 04/13/25 06:59 14:59 22:59 Intake Total 480 Balance 480 Intake: Oral 480 Other: Voiding Method Toilet # Voids 4 Weight 61.5 kg 61.5 kg Patient Weight 04/14/25 06:59 Weight 61.5 kg 04/13/25 02:44 04/13/25 02:44
[2025-04-13] MEDS: SODIUM FERRIC GLUCONAT-SUCROSE 125 MG in SODIUM CHLORIDE 0.9% 100 ML IVPB SCH (18:52)
[2025-04-13] MEDS: SPIRONOLACTONE 25 MG TAB PO SCH (18:58)
--- NOTE | 2025-04-14 09:25 | P.PN ---
Subjective Progress Note Date: 04/14/25 CHIEF COMPLAINT: Severe acute anemia, hemoglobin 6.2 HISTORY OF PRESENT ILLNESS: The patient is a 74-year-old male with pre-existing heart disease who presented with severe anemia 6.2. Baseline hemoglobin in 2023 was 11.3. Patient has seen ear nose throat physician and magnet placer were no current contraindication to endoscopy has been placed. Patient feels well. He sitting up at bedside. ROS: No reports of nausea and vomiting. No fevers or chills. No new chest pain. No productive sputum PHYSICAL EXAM: VITAL SIGNS: Reviewed CONSTITUTIONAL: Well developed and in no acute distress. EYES: Conjuctivae without sclera icterus. Extraocular movements grossly intact. HEAD, EARS, NOSE, THROAT: Moist buccal mucosa. Head is atraumatic, normocephalic. Hears conversational speech. No nasal drainage. RESPIRATORY: Non-labored respirations and equal bilateral excursions. CARDIOVASCULAR: Palpable 2+ radial pulses. ABDOMEN: Nontender.. MUSCULOSKELETAL: No gross deformity of the lower extremities noted. No clubbing. No cyanosis. SKIN: Good skin turgor. Well perfused. NEUROLOGIC: Cranial nerves II through XII grossly intact. No focal or lateralizing signs. PSYCH: Appropriate affect. Alert and oriented to person, place and time. CLINICAL LABS: Reviewed. Hemoglobin 7.3. No new labs available at this morning STUDIES: CT of the abdomen pelvis independently reviewed demonstrates a moderate sigmoid diverticulosis. No diffuse free air. No bowel obstruction. ASSESSMENT: 1. Acute blood loss anemia, unclear etiology 2. Acute exacerbation of congestive heart failure. 3. Bilateral lower extremity swelling 4. Acute renal insufficiency PLAN: 1. Consultants for cardiology and nephrology report reviewed without any contraindication to endoscopy intervention. Will proceed with low volume prep. 2. GoLytely 2 L over 4 L described. Additionally lactulose and milk of magnesia one-time dose advised. 3. Clear liquid diet at this time. N.p.o. after midnight. 4. Benefits and risk of endoscopy including all questions regarding his endoscopy were addressed. Dictation was produced using [employer] software. Please excuse any grammatical, word or spelling errors. Objective - Vital Signs Vital signs: Vital Signs Temp 98.2 F 04/14/25 08:00 Pulse 88 04/14/25 08:57 Resp 18 04/14/25 08:00 BP 110/52 04/14/25 08:00 Pulse Ox 95 04/14/25 08:45 FiO2 21 04/14/25 08:45 Intake & Output 04/13/25 04/14/25 04/14/25 18:59 06:59 18:59 Intake Total 1969 Balance 1969 Weight 61.5 kg 63 kg Intake: Oral 1969 Other: # Voids 3 - Labs CBC & Chem 7: 04/13/25 02:44 04/13/25 02:44
[2025-04-14 09:33] LABS: Basophils # (A) 0.02 X 10*3/uL (0.00-0.10); Basophils % (A) 0.5 %; Eosinophils # (A) 0.19 X 10*3/uL (0.04-0.35); Eosinophils % (A) 4.4 %; HCT 25.1 % (39.6-50.0); HGB 7.2 g/dL (13.0-17.0); Immature Grans, Automated 0.20 %; Lymphocytes # (A) 0.32 X 10*3/uL (0.90-5.00); Lymphocytes % (A) 7.4 %; MCH 22.9 pg (27.0-32.0); MCHC 28.7 g/dL (32.0-37.0); MCV 79.7 FL (80.0-97.0); Monocytes # (A) 0.68 X 10*3/uL (0.20-1.00); Monocytes % (A) 15.7 %; NRBC Per 100 WBC 0 X 10*3/uL (0.00-0.01); Neutrophils # (A) 3.10 X 10*3/uL (1.80-7.70); Neutrophils % (A) 71.8 %; Platelet Count 226 X 10*3/uL (140-440); RBC 3.15 X 10*6/uL (4.40-5.60); RDW 17.6 % (11.5-14.5); WBC 4.32 X 10*3/uL (4.50-10.00)
[2025-04-14] MEDS: MAGNESIUM HYDROXIDE 2,400 MG/30 ML CUP PO STA (10:17)
[2025-04-14] MEDS: LACTULOSE 20 GM/30 ML CUP PO STA (10:17)
[2025-04-14] MEDS: PEG 3350 (420 GM/BTL) + LYTES 4,000 ML BOTTLE PO STA (10:19)
[2025-04-14 10:38] LABS: Anion Gap 11.60 mmol/L (4.00-12.00); BUN/Creat Ratio 16.08 Ratio (12.00-20.00); Blood Urea Nitrogen 20.9 mg/dL (9.0-27.0); Calcium 7.7 mg/dL (8.7-10.3); Carbon Dioxide 27.4 mmol/L (21.6-31.8); Chloride 99 mmol/L (96-109); Glucose 97 mg/dL (70-110); Potassium 3.7 mmol/L (3.5-5.5); Sodium 138 mmol/L (135-145)
--- NOTE | 2025-04-14 12:34 | P.PN ---
Subjective Progress Note Date: 04/14/25 Patient seen in follow-up for JEREMY. No new complaints. Urinating well with Lasix. Patient is awake, comfortable, no acute distress. Examination of the heart S1 and S2 Examination of the lungs bilateral breath sounds are heard with wheezing heard bilaterally Abdomen is soft non-tender obese Examination of lower extremity shows + edema Objective - Vital Signs Vital signs: Vital Signs Temp 98.2 F 04/14/25 08:00 Pulse 88 04/14/25 08:57 Resp 18 04/14/25 08:00 BP 110/52 04/14/25 08:00 Pulse Ox 95 04/14/25 08:45 FiO2 21 04/14/25 08:45 Intake & Output 04/13/25 04/14/25 04/14/25 18:59 06:59 18:59 Intake Total 1969 Balance 1969 Weight 61.5 kg 63 kg Intake: Oral 1969 Other: # Voids 3 - Labs CBC & Chem 7: 04/14/25 03:00 04/14/25 03:00 Labs: Abnormal Lab Results - Last 24 Hours (Table) 04/14/25 Range/Units 03:00 WBC 4.32 L (4.50-10.00) X 10*3/uL RBC 3.15 L (4.40-5.60) X 10*6/uL Hgb 7.2 L (13.0-17.0) g/dL Hct 25.1 L (39.6-50.0) % MCV 79.7 L (80.0-97.0) FL MCH 22.9 L (27.0-32.0) pg MCHC 28.7 L (32.0-37.0) g/dL RDW 17.6 H (11.5-14.5) % Lymphocytes # 0.32 L (0.90-5.00) X 10*3/uL Assessment and Plan Assessment: 1. Non-oliguric JEREMY 2/2 ATN low Hb. Baseline creatinine 1.0. Creatinine stable at 1.3 today. UA no active sediment. PVR negative. 2. Acute HFpEF exacerbation. 3. Anemia 4. Hypertension Plan: Continue with IV diuresis Cardiology following Daily BMP, await labs today
--- NOTE | 2025-04-14 23:43 | P.PN ---
Subjective Progress Note Date: 04/14/25 HISTORY OF PRESENTING ILLNESS: 74-year-old known to Dr. Dillon. Presented because of 1 to 2 months of wo rsening bilateral lower extremity edema, generalized weakness, increased shortness of breath with minimal exertion along with some symptoms of orthopnea and paroxysmal nocturnal dyspnea. Denies any chest pain chest pressure. Smoking sporadically denies any heavy alcohol use drug use marijuana use. ................................................................................ .............................................................. Pertient Vitals: 120/76, heart rate 84 bpm Pertient Labs: Admission labs hemoglobin 7.2, BUN 23, creatinine 0.9, low iron, low iron saturation NT-proBNP 4000 troponin negative EKG: EKG showed atrial fibrillation heart rate 93 bpm Pertient Imaging: Abdo pelvis chest CT showed moderate anasarca, small ascites, small to moderate pericardial effusion Chest x-ray shows bilateral pulmonary congestion history of fluid overload Home medication Coreg 12.5, Lipitor 40, Eliquis 5 twice daily, Lasix 40 daily irbesartan 300 ....................................... ................................................................................ ....................... Prior cardiac testing: Dobutamine stress echo from 2022 was unremarkable Cardiac cath from 2017 showed calcified coronary arteries, significant disease in small nondominant RCA not amenable for intervention, mild to moderate nonobstructive disease in LAD and LCx ................................ ................................................................................ .............................. Progress note 04/14/2025 Good urine output with IV diuretic therapy. Feeling less short of breath, lower extremity edema still present BP 126/83, heart rate 88 bpm Sinus rhythm on telemetry with no significant arrhythmias noticed. .......................................................... ................................................................................ .... PHYSICAL EXAMINATION: Neck: Brisk carotid upstroke, no jugular venous distention. Lungs: Clear to auscultation. Heart: Regular rate and rhythm, S1-S2, , no murmur or rub. Abdomen: Soft nontender, positive bowel sounds. Extremities: 2+ pitting edema bilateral extremity with skin hardening Neuro: Alert, oritented, no focal deficits. Detailed neuro exam was not performed. .......................................... ................................................................................ .................... ASSESSMENT: # Acute CHF exacerbation, HFpEF # Small to moderate pericardial effusion # Small ascites # Persistent atrial fibrillation, rate controlled # Acute on chronic anemia # Essential hypertension # COPD # Tobacco dependence smoking # Iron deficiency PLAN: Hold anticoagulation, look for cause for anemia. Consult GI for possible upper GI endoscopy. IV Protonix Continue Coreg 12.5 twice daily, Hold Imdur. Continue IV Lasix 40 mg twice daily,, Aldactone 12.5 mg daily. Monitor kidney function electrolytes Monitor kidney function electrolytes Obtain echocardiogram Give IV iron, total 2 doses. got 1 PRBC Objective - Vital Signs Vital signs: Vital Signs Temp 97.9 F 04/14/25 19:08 Pulse 90 04/14/25 19:22 Resp 16 04/14/25 19:08 BP 128/85 04/14/25 19:08 Pulse Ox 92 L 04/14/25 19:08 FiO2 21 04/14/25 08:45 Intake & Output 04/14/25 04/14/25 04/15/25 06:59 18:59 06:59 Intake Total 1969 Balance 1969 Weight 63 kg Intake: Oral 1969 Other: # Voids 3 3 # Bowel Movements 3 - Labs CBC & Chem 7: 04/14/25 03:00 04/14/25 03:00 Labs: Abnormal Lab Results - Last 24 Hours (Table) 04/14/25 04/14/25 Range/Units 03:00 03:00 WBC 4.32 L (4.50-10.00) X 10*3/uL RBC 3.15 L (4.40-5.60) X 10*6/uL Hgb 7.2 L (13.0-17.0) g/dL Hct 25.1 L (39.6-50.0) % MCV 79.7 L (80.0-97.0) FL MCH 22.9 L (27.0-32.0) pg MCHC 28.7 L (32.0-37.0) g/dL RDW 17.6 H (11.5-14.5) % Lymphocytes # 0.32 L (0.90-5.00) X 10*3/uL Est GFR (CKD-EPI) 58 L (>=60) Calcium 7.7 L (8.7-10.3) mg/dL
[2025-04-15] MEDS ORDERED: LIDOCAINE 1% INJ 10MG/ML (20 ML MDV) ONE (09:20)
[2025-04-15] MEDS ORDERED: PROPOFOL 10 MG/ML 20 ML VIAL IV ONE (09:20)
[2025-04-15] MEDS: LACTATED RINGERS 1,000 ML IV ONE (09:23)
--- NOTE | 2025-04-15 09:35 | P.PCN ---
Date of Procedure: 04/15/25 Description of Procedure: PREOPERATIVE DIAGNOSIS: Acute gastrointestinal bleeding Acute anemia hemoglobin 6.2 Anticoagulant use Status post blood transfusion POSTOPERATIVE DIAGNOSIS: Gastritis with bleeding Duodenitis Gastroesophageal reflux disease OPERATION: Esophagogastroduodenoscopy SURGEON: Mohini Chase MD ANESTHESIA: MAC. INDICATIONS: The patient is a 74-year-old male who presents with acute anemia, hemoglobin 6.2. Benefits and risks of the procedure were described. Informed consent was obtained. DESCRIPTION: The patient was brought into the endoscopy suite and laid in the left lateral decubitus position. An Olympus gastroscope was passed along the posterior oropharynx down to the distal esophagus where the squamocolumnar junction was encountered at 45 cm from the incisors. The stomach was entered and no bile reflux was found. Additional findings are listed below. The first through third portion of the duodenum was examined and unremarkable. Retroflexion of the scope confirmed Hill grade 2 lower esophageal valve. The squamocolumnar junction demonstrated LA grade B erosive esophagitis. The stomach was desufflated. The patient tolerated the procedure well. FINDINGS: Squamocolumnar junction 45 cm from the incisors. Diaphragmatic hiatus at 45 cm. Hill grade 2 lower esophageal valve. LA grade B erosive esophagitis. Mild duodenitis Mild gastritis with bleeding RECOMMENDATIONS: 1. Diet as tolerated 2. Upper endoscopy as needed 3. Protonix 40 mg daily
--- NOTE | 2025-04-15 10:01 | P.PCN ---
Date of Procedure: 04/15/25 Description of Procedure: PREOPERATIVE DIAGNOSIS: Acute bolus anemia, hemoglobin 6.2 Gastrointestinal bleeding Chronic anticoagulant use Congestive heart failure POSTOPERATIVE DIAGNOSIS: Tubular adenoma descending colon Tubular adenoma transverse colon Sigmoid diverticulosis Internal hemorrhoids, grade 3 OPERATION: Colonoscopy to the ileocecal valve and appendiceal orifice, cecum Colonoscopy with cold forceps biopsy SURGEON: Mohini Chase MD. ANESTHESIA: MAC. INDICATIONS: The patient is an 74-year-old male who presents with acute bolus anemia requiring blood transfusions. Denies any prior colonoscopy. Lower endoscopy offer for diagnostic assessment. Benefits and risks were described and informed consent was obtained. DESCRIPTION OF PROCEDURE: The patient had undergone low volume GI prep including 2 L GoLytely, lactulose, milk of magnesia for congestive heart failure. The patient had been brought into the endoscopy suite and laid in the left lateral decubitus position. After adequate intravenous sedation, the rectum was examined with 2% lidocaine jelly. The prostate was unremarkable. External hemorrhoids were encountered. The rectal tone was within normal limits. No lesions were palpated in the rectal vault. An Olympus colonoscope was advanced until the cecum, ileocecal valve and appendiceal orifice were clearly viewed. The prep was fair. Sigmoid diverticulosis was encountered. Colonic polyps were found and removed. No evidence of focal colitis was found. Retroflexion of the scope demonstrated grade 3 internal hemorrhoids without active bleeding or inflammation. The colon was desufflated. The patient had tolerated the procedure well. Withdrawal time was over 6 minutes. FINDINGS: Aronchick preparation quality scale 2+ (1-5) Internal hemorrhoids, grade 3. External hemorrhoids, grade 3 No arteriovenous malformations. Sigmoid diverticulosis Removal of 3 polyps: - Snare polypectomy transverse colon x 2, 5 mm t 8 mm tubulovillous adenoma. - Snare polypectomy descending colon, 8 mm flat villous adenoma No focal colitis. RECOMMENDATIONS: Given severity of tubular adenomas, recommend repeat colonoscopy 3 years, 2027 Plan - Discharge Summary New Discharge Prescriptions: No Action RX: Isosorbide Mononitrate ER [Imdur] 30 mg PO DAILY #30 tab.er.24h RX: Atorvastatin [Lipitor] 40 mg PO DAILY RX: Albuterol Sulfate [Albuterol Sulfate Hfa] 1 - 2 puff INHALATION RT-Q6H PRN PRN Reason: Shortness Of Breath RX: Irbesartan 300 mg PO DAILY #30 tablet RX: carvediloL [Coreg] 12.5 mg PO BID RX: Apixaban [Eliquis] 5 mg PO BID Furosemide [Lasix] 20 mg PO DAILY Budesonide/Formoterol Fumarate [Breyna 160-4.5 Mcg Inhaler] 2 puff INHALATION RT-BID RX: Fluticasone/Umeclidin/Vilanter [Trelegy Ellipta 100-62.5-25] 1 puff INHALATION RT-DAILY Discharge Medication List RX: Isosorbide Mononitrate ER [Imdur] 30 mg PO DAILY #30 tab.er.24h 03/24/18 [Rx] RX: Atorvastatin [Lipitor] 40 mg PO DAILY 11/21/19 [History] RX: Albuterol Sulfate [Albuterol Sulfate Hfa] 1 - 2 puff INHALATION RT-Q6H PRN 01/31/23 [History] RX: Irbesartan 300 mg PO DAILY #30 tablet 01/31/23 [Rx] RX: Apixaban [Eliquis] 5 mg PO BID 08/23/24 [History] RX: Fluticasone/Umeclidin/Vilanter [Trelegy Ellipta 100-62.5-25] 1 puff INHALATION RT-DAILY 08/23/24 [History] RX: carvediloL [Coreg] 12.5 mg PO BID 08/23/24 [History] Budesonide/Formoterol Fumarate [Breyna 160-4.5 Mcg Inhaler] 2 puff INHALATION RT -BID 04/12/25 [History] Furosemide [Lasix] 20 mg PO DAILY 04/12/25 [History] Follow up Appointment(s)/Referral(s): Vasquez Alicea MD [Primary Care Provider] - 1-2 days
[2025-04-15 10:45] LABS: Basophils # (A) 0.03 10*3/uL (0.00-0.10); Basophils % (A) 0.9 %; Eosinophils # (A) 0.22 10*3/uL (0.04-0.35); Eosinophils % (A) 6.5 %; HCT 24.2 % (39.6-50.0); HGB 7.1 g/dL (13.0-17.0); Lymphocytes # (A) 0.31 10*3/uL (0.90-5.00); Lymphocytes % (A) 9.1 %; MCH 23.4 pg (27.0-32.0); MCHC 29.3 g/dL (32.0-37.0); MCV 79.9 fL (80.0-97.0); Monocytes # (A) 0.69 10*3/uL (0.20-1.00); Monocytes % (A) 20.3 %; Neutrophils # (A) 2.14 10*3/uL (1.80-7.70); Neutrophils % (A) 62.9 %; Platelet Count 237 10*3/uL (140-440); RBC 3.03 10*6/uL (4.40-5.60); RDW 17.8 % (11.5-14.5); WBC 3.40 10*3/uL (4.50-10.00)
[2025-04-15 11:34] LABS: African American GFR (CKD) 89 (>60 ml/min/1.73 sqM); Anion Gap 7 mmol/L; Blood Urea Nitrogen 14 mg/dL (9-20); Calcium 8.6 mg/dL (8.4-10.2); Carbon Dioxide 32 mmol/L (22-30); Chloride 97 mmol/L (98-107); Glucose 75 mg/dL (74-99); Non-African American GFR(CKD) 77 (>60 ml/min/1.73 sqM); Potassium 3.4 mmol/L (3.5-5.1); Sodium 136 mmol/L (137-145)
--- NOTE | 2025-04-15 12:10 | P.PN ---
Subjective This is a pleasant 74 years old male with past medical history of CHF. Patient presents because of worsening leg swelling of 1 month duration History of worsening dyspnea over 4 weeks duration with no chest pain or significant coughing. He still smokes about sporadically about 2 cigarettes/week as he states but no alcohol illicit drugs. He denies abdominal pain vomiting diarrhea. No dysuria urgency. He had little chest pain earlier but looks fine today. Also has little headache but no dyspnea coughing no weakness numbness. Also on admission hemoglobin was noticed low but patient denies using any other NSAIDs or blood thinner other than his Eliquis at home. He denies recent bleeding. He denies blood in his stool. He states his stool was dark 2 weeks ago but not black and over the last 2 days it was light brown. No abdominal pain as above. Patient with no fever blood pressure stable slightly tachypneic. Hemoglobin 6.2 rest of labs including BMP LFT INR troponin were unremarkable chest x-ray showing COPD changes with no acute cardiopulmonary process other than that EKG showing atrial fibrillation with rate of [address] depressions in [id number] from 2022 showing ejection fraction of 55 to 60% 04/13 Dyspnea is better Has normal bowel movement in the morning it was no blood and brown in color. Patient ate well. He has significant leg edema, 3+. Pitting leg edema however his dyspnea significantly improved He pees a lot as he states Creatinine went up 0.9 up to 1.3 however this could also could be due to retention, bladder scan was more than 250 yesterday, going to recheck it today for more than 250 again we will going to place a Saini catheter. Physical Sciences Professor evaluation is requested and they recommend to continue with IV Lasix 40 mg twice daily Surgery team planning for endoscopy on Tuesday Cardiology team were consulted 04/14 Patient dyspnea is improving He had normal bowel movement this morning no blood and looks brown He is eating well He has 3+ pitting leg edema Little burning with urination but he pees a lot as well. But his urine analysis is normal He remains on IV Lasix creatinine 1.3 which is stable. Hold anticoagulation Eliquis now and plan for colonoscopy with surgery team. There is no GI service in this facility during this week or weekend. Review of systems GASTROINTESTINAL: No diarrhea, no nausea, no vomiting, no abdominal pain. Normoactive bowel sounds. NEUROLOGICAL: No headaches, no weakness, no numbness. HEMATOLOGICAL: Denies any bleeding or petechiae. GENITOURINARY: Denies any burning micturition, frequency, or urgency. MUSCULOSKELETAL/RHEUMATOLOGICAL: Denies any joint pain, swelling, or any muscle pain. Active Medications Generic Name Dose Route Start Last Admin Trade Name Freq PRN Reason Stop Dose Admin Acetaminophen 650 mg 04/12/25 11:52 04/13/25 16:59 Acetaminophen Tab 325 Mg Tab PO 650 mg Q6HR PRN Administration Mild Pain or Fever > 100.5 Hydrocodone Bitart/Acetaminophen 1 each 04/12/25 11:52 04/12/25 20:28 Hydrocodone/Apap 5-325mg 1 Each Tab PO 1 each Q4HR PRN Administration Moderate Pain (Scale 4 to 6) Albuterol Sulfate 2.5 mg 04/12/25 13:14 Albuterol Nebulized 2.5 Mg/3 Ml INHALATION RT-Q6H PRN Shortness Of Breath Albuterol/Ipratropium 3 ml 04/12/25 16:00 04/15/25 09:04 Ipratropium-Albuterol 3 Ml Neb INHALATION 3 ml RT-QID CAROL Administration Atorvastatin Calcium 40 mg 04/13/25 09:00 04/15/25 07:37 Atorvastatin 40 Mg Tab PO 40 mg DAILY CAROL Administration Budesonide/Formoterol Fumarate 2 puff 04/12/25 20:00 04/15/25 09:04 Symbicort 160-4.5 Mcg Inhaler INHALATION 2 puff RT-BID CAROL Administration Carvedilol 12.5 mg 04/12/25 21:00 04/15/25 07:37 Carvedilol 12.5 Mg Tab PO 12.5 mg BID-W/MEALS CAROL Administration Furosemide 40 mg 04/12/25 21:00 04/15/25 11:21 Furosemide 10 Mg/Ml 4 Ml Vial IV 40 mg Q12HR CAROL Administration Morphine Sulfate 4 mg 04/12/25 11:52 Morphine Sulfate 4 Mg/Ml Syringe IV Q4HR PRN Severe Pain (Scale 7 to 10) Naloxone HCl 0.2 mg 04/12/25 11:52 Naloxone 0.4 Mg/Ml 1 Ml Vial IV Q2M PRN Opioid Reversal Ondansetron HCl 4 mg 04/12/25 11:52 Ondansetron 4 Mg/2 Ml Vial IVP Q8HR PRN Nausea And Vomiting Pantoprazole Sodium 40 mg 04/13/25 09:00 04/15/25 11:21 Pantoprazole 40 Mg/10 Ml Vial IV 40 mg DAILY CAROL Administration Spironolactone 12.5 mg 04/13/25 18:00 04/15/25 07:37 Spironolactone 25 Mg Tab PO 12.5 mg DAILY CAROL Administration Objective - Vital Signs Vital signs: Vital Signs Temp 98.2 F 04/14/25 08:00 Pulse 88 04/14/25 08:57 Resp 18 04/14/25 08:00 BP 110/52 04/14/25 08:00 Pulse Ox 95 04/14/25 08:45 FiO2 21 04/14/25 08:45 Intake & Output 04/13/25 04/14/25 04/14/25 18:59 06:59 18:59 Intake Total 1969 Balance 1969 Weight 61.5 kg 63 kg Intake: Oral 1969 Other: # Voids 3 - Exam GENERAL: The patient is alert and oriented x3, not in any acute distress. Well developed, well nourished. HEENT: Pupils are round and equally reacting to light. EOMI. No scleral icterus. No conjunctival pallor. Normocephalic, atraumatic. No pharyngeal erythema. No thyromegaly. CARDIOVASCULAR: S1 and S2 present. No murmurs, rubs, or gallops. PULMONARY: Chest is clear to auscultation, no wheezing , no crackles. ABDOMEN: Soft, nontender, nondistended, normoactive bowel sounds. No palpable organomegaly. MUSCULOSKELETAL: No joint swelling or deformity. -EXTREMITIES: No cyanosis, clubbing,. 3+ bilateral pitting leg edema NEUROLOGICAL: Gross neurological examination did not reveal any focal deficits. SKIN: No rashes. no petechiae. - Labs CBC & Chem 7: 04/15/25 10:31 04/15/25 10:31 Labs: Abnormal Lab Results - Last 24 Hours (Table) 04/14/25 04/14/25 Range/Units 03:00 03:00 WBC 4.32 L (4.50-10.00) X 10*3/uL RBC 3.15 L (4.40-5.60) X 10*6/uL Hgb 7.2 L (13.0-17.0) g/dL Hct 25.1 L (39.6-50.0) % MCV 79.7 L (80.0-97.0) FL MCH 22.9 L (27.0-32.0) pg MCHC 28.7 L (32.0-37.0) g/dL RDW 17.6 H (11.5-14.5) % Lymphocytes # 0.32 L (0.90-5.00) X 10*3/uL Est GFR (CKD-EPI) 58 L (>=60) Calcium 7.7 L (8.7-10.3) mg/dL Assessment and Plan Assessment: Acute diastolic CHF with preserved ejection fraction, EF 55 to 60% Acute on chronic anemia with Hemoglobin 6.2 on admission, baseline around 11 Anasarca, moderate with small ascites and pericardial effusion which is moderate COPD with no acute exacerbation Hearing difficulty Hypertension chronic A-fib with controlled rates on Eliquis and Coreg as an outpatient for take Plan: Continue with IV Lasix 40 mg twice daily Monitor input output and creatinine Hold Eliquis Anemia workup Cardiology team consult Surgery team consult. Plan for endoscopy on 04/15 Nephrology team consult Labs and medication were reviewed.. Continue same treatment. Continue with symptomatic treatment. Resume home medication. Monitor labs and vitals. DVT and GI prophylaxis. Further recommendations as per clinical course of the patient DVT prophylaxis: n mechanical hold Eliquis in view of severe anemia GI Prophylaxis: Protonix PT/OT: Pending Prognosis is guarded
--- NOTE | 2025-04-15 14:20 | P.PN ---
Subjective Progress Note Date: 04/15/25 This is a 74 year old male who presented to the emergency department for shortness of breath and lower extremity swelling. seen by Nephrology for JEREMY 2ry to Cardiorenal syndrome. Reports a history of COPD, Heart failure. Additionally, his lower extremities have been swelling for the last couple of months, however they usually stay in the calves and this time the swelling is going up into the thighs and groin, He is on furosemide, Seen bedside, urinating more with IV Lasix but, edema still present in Bilateral lower extremities, up to the knee, more on the left. Patient has edema in his abdomen. Patient denies any chest pain, shortness of breath, abdominal pain. Objective - Vital Signs Vital signs: Vital Signs Temp 97.9 F 04/15/25 07:00 Pulse 87 04/15/25 12:35 Resp 16 04/15/25 07:00 BP 104/68 04/15/25 10:02 Pulse Ox 95 04/15/25 10:02 FiO2 21 04/15/25 09:07 Intake & Output 04/14/25 04/15/25 04/15/25 18:59 06:59 18:59 Intake Total 240 300 Balance 240 300 Weight 58 kg Intake: IV 300 Oral 240 Other: # Voids 3 6 # Bowel Movements 3 4 - Exam Vitals Signs Reviewed. General: nontoxic, no distress, Cardiovascular: S1, S2 normal, no murmur Lungs: CTA bilateral, no rhonchi, no rales no accessory muscle use Abdominal: soft, nontender to palpation, no guarding, no appreciable organomegaly MSKL: Pitting edema +1 on the right, +2 on the left. - Labs CBC & Chem 7: 04/15/25 10:31 04/15/25 10:31 Labs: Abnormal Lab Results - Last 24 Hours (Table) 04/15/25 04/15/25 Range/Units 10:31 10:31 WBC 3.40 L (4.50-10.00) 10*3/uL RBC 3.03 L (4.40-5.60) 10*6/uL Hgb 7.1 L (13.0-17.0) g/dL Hct 24.2 L (39.6-50.0) % MCV 79.9 L (80.0-97.0) fL MCH 23.4 L (27.0-32.0) pg MCHC 29.3 L (32.0-37.0) g/dL RDW 17.8 H (11.5-14.5) % Lymphocytes # 0.31 L (0.90-5.00) 10*3/uL Sodium 136 L (137-145) mmol/L Potassium 3.4 L (3.5-5.1) mmol/L Chloride 97 L (98-107) mmol/L Carbon Dioxide 32 H (22-30) mmol/L Assessment and Plan Plan: 1. JEREMY 2ry to cardiorenal syndrome: patient's baseline creatinine was 1.0, peaked at 1.3, today is 0.98. 2. Volume overload 2ry to HFpEF: patient still has Lower extremities edema. 3. Iron deficiency anemia 2ry to GI bleeding, EGD today showed mild gastritis with bleeding, Hgb was 6.2 on admission, patient received 1 unit of blood. today is 7.1 Plan: Fluid restriction <1500ml Recommended Low salt diet continue IV Lasix Ordered BMP and Magnesium for AM Repeat CBC AM. Arielle Montgomery MD PGY1 Internal Medicine Nephrology service. I have seen and examined the patient with resident and agree with A&P as written. Hypokalemia from diuresis. Will replaced.
[2025-04-15] MEDS: POTASSIUM CHLORIDE ER 20 MEQ TAB.ER PO STA (15:25)
[2025-04-16] MEDS: FUROSEMIDE 10 MG/ML 2 ML VIAL IV ONE (02:24)
[2025-04-16 04:10] LABS: Basophils # (A) 0.02 10*3/uL (0.00-0.10); Basophils % (A) 0.3 %; Eosinophils # (A) 0.20 10*3/uL (0.04-0.35); Eosinophils % (A) 3.3 %; HCT 28.1 % (39.6-50.0); HGB 8.5 g/dL (13.0-17.0); Lymphocytes # (A) 0.51 10*3/uL (0.90-5.00); Lymphocytes % (A) 8.5 %; MCH 24.2 pg (27.0-32.0); MCHC 30.2 g/dL (32.0-37.0); MCV 80.1 fL (80.0-97.0); Monocytes # (A) 0.82 10*3/uL (0.20-1.00); Monocytes % (A) 13.6 %; Neutrophils # (A) 4.44 10*3/uL (1.80-7.70); Neutrophils % (A) 74.0 %; Platelet Count 283 10*3/uL (140-440); RBC 3.51 10*6/uL (4.40-5.60); RDW 17.7 % (11.5-14.5); WBC 6.01 10*3/uL (4.50-10.00)
[2025-04-16 08:08] VITALS: BP 131/75; RESP 15; TEMP 98.1
[2025-04-16 08:32] LABS: Anion Gap 9.30 mmol/L (4.00-12.00); BUN/Creat Ratio 9.36 Ratio (12.00-20.00); Blood Urea Nitrogen 13.1 mg/dL (9.0-27.0); Calcium 8.3 mg/dL (8.7-10.3); Carbon Dioxide 29.7 mmol/L (21.6-31.8); Chloride 98 mmol/L (96-109); Glucose 103 mg/dL (70-110); Magnesium 2.1 mg/dL (1.5-2.4); Potassium 4.1 mmol/L (3.5-5.5); Sodium 137 mmol/L (135-145)
--- NOTE | 2025-04-16 08:46 | CA ---
Transthoracic Echo Report Name: Jeremy Melendez Age: 74 Gender: M : 1950 Exam Date: 04/15/2025 10:43 Exam Location: [facility] Ht (in): 70 Wt (lb): 135 Ordering Physician: Daniel Ann MD ([id number]) Attending/Referring Phys: Renewals Manager Natividad Dailey RDCS Procedure CPT: Indications: cardiomyopathy Cardiac Hx: Technical Quality: Poor Contrast 1: Total Dose (mL): Contrast 2: Total Dose (mL): MEASUREMENTS (Male / Female) Normal Values 2D ECHO LV Diastolic Diameter PLAX 5.2 cm 4.2 - 5.9 / 3.9 - 5.3 cm LV Systolic Diameter PLAX 3.8 cm IVS Diastolic Thickness 0.9 cm 0.6 - 1.0 / 0.6 - 0.9 cm LVPW Diastolic Thickness 1.3 cm 0.6 - 1.0 / 0.6 - 0.9 cm LV Relative Wall Thickness 0.4 RV Internal Dim ED PLAX 3.0 cm LVOT Diameter 2.1 cm LA Systolic Diameter LX 4.2 cm 3.0 - 4.0 / 2.7 - 3.8 cm LV Diastolic Volume MOD BP 74.9 cm??? 67 - 155 / 56 - 104 cm??? LV Systolic Volume MOD BP 31.6 cm??? - 58 / 19 - 49 cm??? LV Ejection Fraction MOD BP 57.8 % >= 55 % LV Cardiac Index MOD BP 2278.7 cm???/min???m??? LV Diastolic Volume MOD 4C 65.6 cm??? LV Systolic Volume MOD 4C 35.4 cm??? LV Ejection Fraction MOD 4C 46.0 % LV Cardiac Index MOD 4C 1587.7 cm???/min???m??? LV Diastolic Length 4C 7.4 cm LV Systolic Length 4C 6.8 cm LV Diastolic Volume MOD 2C 85.6 cm??? LV Systolic Volume MOD 2C 25.6 cm??? LV Ejection Fraction MOD 2C 70.1 % LV Cardiac Index MOD 2C 3155.6 cm???/min???m??? LV Diastolic Length 2C 7.3 cm LV Systolic Length 2C 6.1 cm LA Volume 76.2 cm??? 18 - 58 / 22 - 52 cm??? LA Volume Index 44.1 cm???/m??? 16 - 28 cm???/m??? Ascending Aorta Diameter 4.1 cm M-MODE Aortic Root Diameter MM 3.7 cm AV Cusp Separation MM 1.5 cm DOPPLER AV Peak Velocity 130.3 cm/s AV Peak Gradient 6.8 mmHg AV Mean Velocity 102.2 cm/s AV Mean Gradient 4.5 mmHg AV Velocity Time Integral 30.4 cm LVOT Peak Velocity 117.7 cm/s LVOT Peak Gradient 5.5 mmHg LVOT Velocity Time Integral 23.6 cm LVOT Stroke Volume 78.6 cm??? LVOT Stroke Volume Index 44.5 ml/m??? LVOT Cardiac Index 4136.2 cm???/min???m??? AV Area Cont Eq vti 2.6 cm??? AV Area Cont Eq pk 3.0 cm??? MV Peak Velocity 152.1 cm/s MV Peak Gradient 9.3 mmHg MV Mean Velocity 90.0 cm/s MV Mean Gradient 3.9 mmHg MV Velocity Time Integral 37.4 cm MV Area PHT 4.0 cm??? Mitral E Point Velocity 148.8 cm/s Mitral A Point Velocity 45.0 cm/s Mitral E to A Ratio 3.3 MV Deceleration Time 187.3 ms TR Peak Velocity 358.0 cm/s TR Peak Gradient 51.3 mmHg Right Ventricular Systolic Press 71.3 mmHg FINDINGS Left Ventricle Left ventricular ejection fraction is estimated at 55-60%. Normal left ventricular systolic function with no obvious regional wall motion abnormalities. Left ventricular cavity size normal. Mildly increased left ventricular wall thickness. Right Ventricle Right ventricle not well visualized. Severe pulmonary hypertension. Right ventricular systolic pressure estimated at 71 mm hg. Right Atrium Mild right atrial dilatation. No right atrial thrombus or mass seen. Negative agitated saline bubble study for right to left shunt using valsalva.. Question intrapulmonary shunt. Left Atrium Mildly increased left atrial diameter. Moderately increased left atrial volume. Mildly increased left atrial area. [id number] shunt seen with color doppler. Mitral Valve Moderate thickening/calcification of the anterior mitral valve leaflet. Moderate mitral annular calcification. Mild mitral stenosis. Trace mitral regurgitation. Aortic Valve Diffuse thickening (sclerosis) of the aortic valve cusps without reduced excursion. No aortic stenosis. Trace aortic regurgitation. Tricuspid Valve Tricuspid valve not well visualized. Moderate tricuspid regurgitation. Pulmonic Valve Pulmonic valve not well visualized. Trace pulmonic regurgitation. Pericardium Minimal pericardial effusion no pleural effusion. Aorta Normal size aortic root ,mildly dilated proximal ascending aorta. CONCLUSIONS Normal biventricular systolic function Severe pulmonary hypertension [id number] shunt was identified likely secondary to ASD Aortic sclerosis Mitral annular calcifications with mild MS Trace pericardial effusion Previewed by: Dr. Ricardo Dixon MD (Electronically Signed) Final Date: 16 April 2025 08:45
[2025-04-16 08:50] VITALS: PULSE 88
[2025-04-16] MEDS: FUROSEMIDE 20 MG TAB PO SCH (09:02)
--- NOTE | 2025-04-16 09:18 | P.PN ---
Subjective Progress Note Date: 04/16/25 CHIEF COMPLAINT: Severe acute anemia, hemoglobin 6.2 HISTORY OF PRESENT ILLNESS: The patient is a 74-year-old male with pre-existing heart disease who presented with severe anemia 6.2. He had 1 unit blood transfusion. He underwent both upper and lower endoscopy yesterday. Findings include adenomas resected. Presence of diverticulosis. Patient reports doing well. No bloody bowel movements. He is eager to go home today. ROS: No reports of nausea and vomiting. No fevers or chills. No new chest pain. No productive sputum PHYSICAL EXAM: VITAL SIGNS: Reviewed CONSTITUTIONAL: Well developed and in no acute distress. EYES: Conjuctivae without sclera icterus. Extraocular movements grossly intact. HEAD, EARS, NOSE, THROAT: Moist buccal mucosa. Head is atraumatic, normocephalic. Hears conversational speech. No nasal drainage. RESPIRATORY: Non-labored respirations and equal bilateral excursions. CARDIOVASCULAR: Palpable 2+ radial pulses. ABDOMEN: Nontender. MUSCULOSKELETAL: No gross deformity of the lower extremities noted. No clubbing. No cyanosis. SKIN: Good skin turgor. Well perfused. NEUROLOGIC: Cranial nerves II through XII grossly intact. No focal or lateralizing signs. PSYCH: Appropriate affect. Alert and oriented to person, place and time. CLINICAL LABS: Reviewed. Hemoglobin 7.3. Hemoglobin today increased 8.5. ASSESSMENT: 1. Acute blood loss anemia, unclear etiology 2. Acute exacerbation of congestive heart failure. 3. Bilateral lower extremity swelling 4. Acute renal insufficiency 5. Colon adenomas 6. Sigmoid diverticulosis PLAN: 1. Patient hemoglobin trending upward. Stable for discharge from a surgical standpoint. 2. Due to recent polypectomy, may resume blood thinners , 04/18/2025. Dictation was produced using [employer] dictation software. Please excuse any grammatical, word or spelling errors. Objective - Vital Signs Vital signs: Vital Signs Temp 98.1 F 04/16/25 06:53 Pulse 88 04/16/25 08:49 Resp 15 04/16/25 06:53 BP 131/75 04/16/25 06:53 Pulse Ox 95 04/16/25 08:38 FiO2 21 04/15/25 09:07 Intake & Output 04/15/25 04/16/25 04/16/25 18:59 06:59 18:59 Intake Total 500 310 Balance 500 310 Weight 65 kg Intake: IV 300 Oral 200 Blood Product 310 Rc As-1 Unit 310 [id number] Other: Voiding Method Toilet Toilet # Voids 2 2 - Labs CBC & Chem 7: 04/16/25 03:42 04/16/25 03:42 Labs: Abnormal Lab Results - Last 24 Hours (Table) 04/15/25 04/15/25 04/15/25 Range/Units 10:31 10:31 16:19 WBC 3.40 L (4.50-10.00) 10*3/uL RBC 3.03 L (4.40-5.60) 10*6/uL Hgb 7.1 L (13.0-17.0) g/dL Hct 24.2 L (39.6-50.0) % MCV 79.9 L (80.0-97.0) fL MCH 23.4 L (27.0-32.0) pg MCHC 29.3 L (32.0-37.0) g/dL RDW 17.8 H (11.5-14.5) % Lymphocytes # 0.31 L (0.90-5.00) 10*3/uL Sodium 136 L (137-145) mmol/L Potassium 3.4 L (3.5-5.1) mmol/L Chloride 97 L (98-107) mmol/L Carbon Dioxide 32 H (22-30) mmol/L Est GFR (CKD-EPI) (>=60) BUN/Creatinine Ratio (12.00-20.00) Ratio Calcium (8.7-10.3) mg/dL Crossmatch See Detail 04/16/25 04/16/25 Range/Units 03:42 03:42 WBC (4.50-10.00) 10*3/uL RBC 3.51 L (4.40-5.60) 10*6/uL Hgb 8.5 L (13.0-17.0) g/dL Hct 28.1 L (39.6-50.0) % MCV (80.0-97.0) fL MCH 24.2 L (27.0-32.0) pg MCHC 30.2 L (32.0-37.0) g/dL RDW 17.7 H (11.5-14.5) % Lymphocytes # 0.51 L (0.90-5.00) 10*3/uL Sodium (137-145) mmol/L Potassium (3.5-5.1) mmol/L Chloride (98-107) mmol/L Carbon Dioxide (22-30) mmol/L Est GFR (CKD-EPI) 53 L (>=60) BUN/Creatinine Ratio 9.36 L (12.00-20.00) Ratio Calcium 8.3 L (8.7-10.3) mg/dL Crossmatch
--- NOTE | 2025-04-16 09:52 | P.PN ---
Subjective Progress Note Date: 04/15/25 This is a pleasant 74 years old male with past medical history of CHF. Patient presents because of worsening leg swelling of 1 month duration History of worsening dyspnea over 4 weeks duration with no chest pain or significant coughing. He still smokes about sporadically about 2 cigarettes/week as he states but no alcohol illicit drugs. He denies abdominal pain vomiting diarrhea. No dysuria urgency. He had little chest pain earlier but looks fine today. Also has little headache but no dyspnea coughing no weakness numbness. Also on admission hemoglobin was noticed low but patient denies using any other NSAIDs or blood thinner other than his Eliquis at home. He denies recent bleeding. He denies blood in his stool. He states his stool was dark 2 weeks ago but not black and over the last 2 days it was light brown. No abdominal pain as above. Patient with no fever blood pressure stable slightly tachypneic. Hemoglobin 6.2 rest of labs including BMP LFT INR troponin were unremarkable chest x-ray showing COPD changes with no acute cardiopulmonary process other than that EKG showing atrial fibrillation with rate of [address] depressions in [id number] from 2022 showing ejection fraction of 55 to 60% 04/13 Dyspnea is better Has normal bowel movement in the morning it was no blood and brown in color. Patient ate well. He has significant leg edema, 3+. Pitting leg edema however his dyspnea significantly improved He pees a lot as he states Creatinine went up 0.9 up to 1.3 however this could also could be due to retention, bladder scan was more than 250 yesterday, going to recheck it today for more than 250 again we will going to place a Saini catheter. Program Officer evaluation is requested and they recommend to continue with IV Lasix 40 mg twice daily Surgery team planning for endoscopy on Tuesday Cardiology team were consulted 04/15/2025 Patient is seen in follow-up today with general surgery following and patient is status post colonoscopy showing multiple internal hemorrhoids and hemoglobin is noted to be 7.1 today. Patient scheduled to undergo EGD later today. Patient is continued on IV Lasix also with nephrology and cardiology following as patient does have CHF exacerbation continues with lower extremity bilateral edema 1+ pitting although is significantly improved per patient from previous. Recommend Alec wraps and continued Lasix with follow-up on repeat labs in the a.m. will transfuse 1 unit of PRBC and given additional Lasix dose after the unit for hemoglobin of 7.1. Will discuss with consultations regarding discharge planning. Patient is asking when he can go home. Review of systems: Constitutional: No reports of fatigue, fever, or chills Cardiovascular: No reports of chest pain or palpitations Respiratory: No reports of shortness of breath or cough GI: No reports of nausea, vomiting, or diarrhea : No reports of dysuria or retention Neurovascular: No reports of weakness or numbness All medications have been reviewed Physical exam: GENERAL: The patient is alert and oriented x3, not in any acute distress. Well developed, well nourished. Elderly appearing, thin built HEENT: Pupils are round and equally reacting to light. EOMI. No scleral icterus. No conjunctival pallor. Normocephalic, atraumatic. No pharyngeal erythema. No thyromegaly. CARDIOVASCULAR: S1 and S2 muffled PULMONARY: Diminished breath sounds bilaterally otherwise chest is clear to auscultation, no wheezing , no crackles. ABDOMEN: Soft, nontender, nondistended, normoactive bowel sounds. No palpable organomegaly. MUSCULOSKELETAL: No joint swelling or deformity. EXTREMITIES: No cyanosis, clubbing,. 1+ bilateral pitting leg edema, significantly improved from admission NEUROLOGICAL: Gross neurological examination did not reveal any focal deficits. SKIN: No rashes. no petechiae. Assessment: Acute diastolic CHF with preserved ejection fraction, EF 55 to 60% Acute on chronic anemia with Hemoglobin 6.2 on admission, baseline around 11, 7. 1 today and will receive 1 unit of PRBC, possibly secondary to multiple internal hemorrhoids noted on colonoscopy Anasarca, moderate with small ascites and pericardial effusion which is moderate, improving COPD with no acute exacerbation Hearing difficulty Hypertension chronic A-fib with controlled rates on Eliquis and Coreg as an outpatient GI prophylaxis DVT prophylaxis Full code Plan: Continue with IV Lasix 40 mg twice daily with nephrology and cardiology following. Eliquis is currently on hold and patient is undergoing EGD/colonoscopy. Patient did perform colonoscopy which revealed 3 internal hemorrhoids and some biopsies were obtained. Awaiting EGD Monitor input output and creatinine, continue IV Lasix and kidney functions trending down, recommend follow-up labs Hold Eliquis and will discuss with general surgery and cardiology regarding resuming Hemoglobin is 7.1 today and will give 1 unit of PRBC and also an additional dose of Lasix after. Recommend using Alec wraps or compression stockings to bilateral lower extremities and elevating while at rest. The impression and plan of care has been dictated by Hilaria Galvin, Nurse Practitioner as directed. Dr. Shahbaz MD I have performed a history and examination and MDM of this patient, discussed the same with the dictator, and agree with the dictator's assessment and plan as written ,documented as a scribe. Based on total visit time, I have performed more than 50% of the visit. Objective - Vital Signs Vital signs: Vital Signs Temp 97.9 F 04/15/25 07:00 Pulse 87 04/15/25 10:02 Resp 16 04/15/25 07:00 BP 104/68 04/15/25 10:02 Pulse Ox 95 04/15/25 10:02 FiO2 21 04/15/25 09:07 Intake & Output 04/14/25 04/15/25 04/15/25 18:59 06:59 18:59 Intake Total 240 300 Balance 240 300 Weight 58 kg Intake: IV 300 Oral 240 Other: # Voids 3 6 # Bowel Movements 3 4 - Labs CBC & Chem 7: 04/16/25 03:42 04/16/25 03:42 Labs: Abnormal Lab Results - Last 24 Hours (Table) 04/14/25 Range/Units 03:00 Est GFR (CKD-EPI) 58 L (>=60) Calcium 7.7 L (8.7-10.3) mg/dL
--- NOTE | 2025-04-16 12:07 | P.PN ---
Subjective HISTORY OF PRESENT ILLNESS: Patient examined this morning at bedside. Patient currently denies chest pain or pressure. He denies shortness of breath. Vital signs are stable. That is post endoscopy yesterday with general surgery. Per their recommendations, patient may resume his Eliquis on , 04/18/2025 PHYSICAL EXAM: VITAL SIGNS: Reviewed. GENERAL: Well-developed in no acute distress. NECK: Supple. No JVD or thyromegaly LUNGS: Respirations even and unlabored. Lungs essentially clear to auscultation bilaterally. HEART: Irregular rate and rhythm. S1 and S2 heard. EXTREMITIES: Normal range of motion. No clubbing or cyanosis. Peripheral pulses intact. No lower extremity edema ASSESSMENT: Acute on chronic heart failure with preserved EF Small to moderate pericardial effusion Small ascites Persistent atrial fibrillation Acute on chronic anemia, status post endoscopy Hypertension COPD PLAN: Per general surgery, may resume Eliquis on 04/18/2025. Resume at a lower dose of 2.5 mg twice a day per Dr. Dixon. Discontinue IV Lasix. Begin oral Lasix 20 mg daily Continue additional cardiac medications including Lipitor carvedilol and Aldactone Patient is stable for discharge home today from a cardiac standpoint Patient to follow-up postdischarge in the office We will sign off. Please reconsult if needed. Nurse practitioner note has been reviewed by physician. Signing provider agrees with the documented findings, assessment, and plan of care documented by [employer]PORATE [employer]GAL SECRETARY as a scribe. Objective - Vital Signs Vital signs: Vital Signs Temp 98.1 F 04/16/25 06:53 Pulse 88 04/16/25 08:49 Resp 15 04/16/25 06:53 BP 131/75 04/16/25 06:53 Pulse Ox 95 04/16/25 08:38 FiO2 21 04/15/25 09:07 Intake & Output 04/15/25 04/16/25 04/16/25 18:59 06:59 18:59 Intake Total 500 310 Balance 500 310 Weight 65 kg Intake: IV 300 Oral 200 Blood Product 310 Rc As-1 Unit 310 [id number] Other: Voiding Method Toilet Toilet # Voids 2 2 - Labs CBC & Chem 7: 04/16/25 03:42 04/16/25 03:42 Labs: Abnormal Lab Results - Last 24 Hours (Table) 04/15/25 04/16/25 04/16/25 Range/Units 16:19 03:42 03:42 RBC 3.51 L (4.40-5.60) 10*6/uL Hgb 8.5 L (13.0-17.0) g/dL Hct 28.1 L (39.6-50.0) % MCH 24.2 L (27.0-32.0) pg MCHC 30.2 L (32.0-37.0) g/dL RDW 17.7 H (11.5-14.5) % Lymphocytes # 0.51 L (0.90-5.00) 10*3/uL Est GFR (CKD-EPI) 53 L (>=60) BUN/Creatinine Ratio 9.36 L (12.00-20.00) Ratio Calcium 8.3 L (8.7-10.3) mg/dL Crossmatch See Detail
--- NOTE | 2025-04-16 13:31 | P.PN ---
Subjective Today patient has no acute complaints, he eating well, urinating, and reports soft bowel movements. NO edema in right LE, slight residual on the left. Patient denies any chest pain, shortness of breath, abdominal pain. Objective - Vital Signs Vital signs: Vital Signs Temp 98.1 F 04/16/25 06:53 Pulse 88 04/16/25 08:49 Resp 15 04/16/25 06:53 BP 131/75 04/16/25 06:53 Pulse Ox 95 04/16/25 08:38 FiO2 21 04/15/25 09:07 Intake & Output 04/15/25 04/16/25 04/16/25 18:59 06:59 18:59 Intake Total 500 310 Balance 500 310 Weight 65 kg Intake: IV 300 Oral 200 Blood Product 310 Rc As-1 Unit 310 [id number] Other: Voiding Method Toilet Toilet # Voids 2 2 - Exam Vitals Signs Reviewed. General: nontoxic, no distress, Cardiovascular: S1, S2 normal, no murmur Lungs: CTA bilateral, no rhonchi, no rales no accessory muscle use Abdominal: soft, nontender to palpation, no guarding, no appreciable organomegaly MSKL: Pitting edema +1 on the left. - Labs CBC & Chem 7: 04/16/25 03:42 04/16/25 03:42 Labs: Abnormal Lab Results - Last 24 Hours (Table) 04/15/25 04/15/25 04/15/25 Range/Units 10:31 10:31 16:19 WBC 3.40 L (4.50-10.00) 10*3/uL RBC 3.03 L (4.40-5.60) 10*6/uL Hgb 7.1 L (13.0-17.0) g/dL Hct 24.2 L (39.6-50.0) % MCV 79.9 L (80.0-97.0) fL MCH 23.4 L (27.0-32.0) pg MCHC 29.3 L (32.0-37.0) g/dL RDW 17.8 H (11.5-14.5) % Lymphocytes # 0.31 L (0.90-5.00) 10*3/uL Sodium 136 L (137-145) mmol/L Potassium 3.4 L (3.5-5.1) mmol/L Chloride 97 L (98-107) mmol/L Carbon Dioxide 32 H (22-30) mmol/L Est GFR (CKD-EPI) (>=60) BUN/Creatinine Ratio (12.00-20.00) Ratio Calcium (8.7-10.3) mg/dL Crossmatch See Detail 04/16/25 04/16/25 Range/Units 03:42 03:42 WBC (4.50-10.00) 10*3/uL RBC 3.51 L (4.40-5.60) 10*6/uL Hgb 8.5 L (13.0-17.0) g/dL Hct 28.1 L (39.6-50.0) % MCV (80.0-97.0) fL MCH 24.2 L (27.0-32.0) pg MCHC 30.2 L (32.0-37.0) g/dL RDW 17.7 H (11.5-14.5) % Lymphocytes # 0.51 L (0.90-5.00) 10*3/uL Sodium (137-145) mmol/L Potassium (3.5-5.1) mmol/L Chloride (98-107) mmol/L Carbon Dioxide (22-30) mmol/L Est GFR (CKD-EPI) 53 L (>=60) BUN/Creatinine Ratio 9.36 L (12.00-20.00) Ratio Calcium 8.3 L (8.7-10.3) mg/dL Crossmatch Assessment and Plan Plan: 1. JEREMY 2ry to cardiorenal syndrome: patient's baseline creatinine was 1.0, today is 1.4 K is 3.4 from yesterday, today is 4.1, Magnesium 2.1, Ca 8.3 L, yesterdays 8.6. 2. Volume overload 2ry to HFpEF: patient has minimal Lower extremities edema on the left. 3. Iron deficiency anemia 2ry to GI bleeding: Hgb was 6.2 on admission, patient received 2 unit of blood. today is 8.5. Plan: for discharge continue Fluid restriction <1500ml Recommended Low salt diet. Switch from IV Lasix to oral Lasix 20 mg daily by Cardio repeat BMP, 2-3 days after discharge. Patient was advised to follow up with his PCP and CKD clinic within a week Call if he gains more than 3 pounds per week Arielle Montgomery MD PGY1 Internal Medicine Nephrology service. I have seen and examined the patient with resident and agree with A&P as written. Hypokalemia better. Advised to monitor weight closely at home - to notify physician if develops edema or gain >3 pounds in 1 week duration. F/u outpatient in 1 week.
[2025-04-18] MEDS ORDERED: APIXABAN 2.5 MG TABLET PO SCH (09:00)
== END 2025-04-16 14:29 | disposition home or self-care (01) | DRG 377 ==
LOC: EC 09:13 → 4SSUR 11:32
PROVIDERS: ADMIT Internal Medicine; ATTEND Internal Medicine
PROC: 30233N1 Transfusion of Nonautologous Red Blood Cells into Peripheral Vein, Percutaneous Approach (ICD-10-PCS; 2025-04-12)
PROC: 0DBL8ZX Excision of Transverse Colon, Via Natural or Artificial Opening Endoscopic, Diagnostic (ICD-10-PCS; principal; 2025-04-15 08:05)
PROC: 0DBM8ZX Excision of Descending Colon, Via Natural or Artificial Opening Endoscopic, Diagnostic (ICD-10-PCS; principal; 2025-04-15 08:05)
PROC: 0DJ08ZZ Inspection of Upper Intestinal Tract, Via Natural or Artificial Opening Endoscopic (ICD-10-PCS; 2025-04-15 08:05)
DX: K29.71 Gastritis, unspecified, with bleeding (principal); I50.33 Acute on chronic diastolic (congestive) heart failure; N17.0 Acute kidney failure with tubular necrosis; I31.39 Other pericardial effusion (noninflammatory); K22.10 Ulcer of esophagus without bleeding; D62 Acute posthemorrhagic anemia; D50.9 Iron deficiency anemia, unspecified; F17.210 Nicotine dependence, cigarettes, uncomplicated; I13.0 Hypertensive heart and chronic kidney disease with heart failure and stage 1 through stage 4 chronic kidney disease, or unspecified chronic kidney disease; J44.9 Chronic obstructive pulmonary disease, unspecified; N18.9 Chronic kidney disease, unspecified; I48.19 Other persistent atrial fibrillation; K57.30 Diverticulosis of large intestine without perforation or abscess without bleeding; K29.80 Duodenitis without bleeding; K64.4 Residual hemorrhoidal skin tags; K64.8 Other hemorrhoids; K21.9 Gastro-esophageal reflux disease without esophagitis; D12.4 Benign neoplasm of descending colon; D12.3 Benign neoplasm of transverse colon; H91.90 Unspecified hearing loss, unspecified ear; I25.2 Old myocardial infarction; Z77.090 Contact with and (suspected) exposure to asbestos; Z79.01 Long term (current) use of anticoagulants; Z79.51 Long term (current) use of inhaled steroids; Z79.899 Other long term (current) drug therapy
CPT/HCPCS: 36415; 36430; 43235; 45385; 71046; 74176; 80048; 80053; 81003; 82570; 82607; 82746; 83540; 83550; 83605; 83735; 83880; 84156; 84484; 85025; 85610; 85730; 86850; 86900; 86901; 86920; 87636; 88305; 93005; 93306; 94640; 94760; 96374; 96375; 96376; 99291